=== PATIENT | female | born 1950 | race Caucasian/White ===

== ENCOUNTER → 2016-11-19 | Outpatient (CLI) | payer BC ==
[2016-11-20 10:47] LABS: Hexagonal Phase Neutralization Negative (Negative)
[2016-11-20 11:12] LABS: Protein C (Activity) 107 % (70 - 130)
[2016-11-21 13:50] LABS: Free Protein S Antigen 90 % (50 - 147)
== END | disposition home or self-care (01) ==
LOC: LABWHC1 13:44
PROVIDERS: ATTEND Internal Medicine
DX: I26.99 Other pulmonary embolism without acute cor pulmonale (principal)
CPT/HCPCS: 36415; 81240; 81241; 81291; 85300; 85303; 85306; 85598; 85613; 85730; 85732

== ENCOUNTER → 2017-03-09 | Outpatient (CLI) | payer BC ==
--- NOTE | 2017-03-11 11:02 | MM ---
Reason for exam: additional evaluation requested from prior study. Last mammogram was performed 9 years and 6 months ago. History: Patient is postmenopausal and has history of breast cancer at age 53. Family history of breast cancer in sister at age 50, breast cancer in mother at age 60, and breast cancer in relative at age 30. Malignant stereotactic core biopsy of the left breast, February 09, 2004. Benign excisional biopsy of the right breast, January 28, 2001. Cancelled Procedure of the right breast, January 08, 2001. Core biopsy of the left breast. 2 excisional biopsies of the left breast. Mastectomy of the left breast. Chemotherapy. TRAM Reconstruction of the left breast. Took tamoxifen for 5 years beginning at age 54. Physical Findings: Nurse did not find any significant physical abnormalities on exam. MG 3D Diag Mammo W/Cad RT CC and MLO view(s) were taken of the right breast. Prior study comparison: November 15, 2015, mammogram, performed at [facility]. May 10, 2014, mammogram, performed at [facility]. The breast tissue is heterogeneously dense. This may lower the sensitivity of mammography. Nodular density upper outer quadrant in the right breast 9.3cm from nipple. These results were verbally communicated with the patient on 03/11/17. ASSESSMENT: Incomplete: need additional imaging evaluation, BI-RAD 0 RECOMMENDATION: Ultrasound of the right breast. [facility] will attempt to contact patient to return for ultrasound.
== END | disposition home or self-care (01) ==
LOC: RADMAMWWP 14:22
PROVIDERS: ATTEND Family Medicine
DX: Z08 Encounter for follow-up examination after completed treatment for malignant neoplasm (principal); Z85.3 Personal history of malignant neoplasm of breast
CPT/HCPCS: G0206; G0279

== ENCOUNTER → 2017-03-12 | Outpatient (CLI) | payer BC ==
--- NOTE | 2017-03-13 08:00 | USB ---
Reason for exam: additional evaluation requested from abnormal screening. History: Patient is postmenopausal and has history of breast cancer at age 53. Family history of breast cancer in sister at age 50, breast cancer in mother at age 60, and breast cancer in relative at age 30. Malignant stereotactic core biopsy of the left breast, February 09, 2004. Benign excisional biopsy of the right breast, January 28, 2001. Cancelled Procedure of the right breast, January 08, 2001. Core biopsy of the left breast. 2 excisional biopsies of the left breast. Mastectomy of the left breast. Chemotherapy. TRAM Reconstruction of the left breast. Took tamoxifen for 5 years beginning at age 54. US Breast RT Right breast ultrasound includes all four quadrants, the retroareolar region and axilla. Finding demonstrates a 14 x 12 x 8mm irregular, solid, hypoechoic lesion at 10 o'clock, 8.2cm from nipple. These results were verbally communicated with the patient and result sheet given to the patient on 03/12/17. ASSESSMENT: Suspicious, BI-RAD 4 RECOMMENDATION: Ultrasound core biopsy of the right breast. Called Dr. Sampson with mammographic findings and has scheduled an appointment for the patient for 04/16/17 at 9:[address] Ghotra. Appointment scheduled with Dr. Sampson for 03/23/17 at 1:45. Biopsy scheduled for 03/31/17 at12:20. PRELIMINARY REPORT CALLED AND FAXED TO DR. GHOTRA ON 03/13/17 /TP.
== END | disposition home or self-care (01) ==
LOC: RADUSWWP 15:05
PROVIDERS: ATTEND Family Medicine
DX: R92.8 Other abnormal and inconclusive findings on diagnostic imaging of breast (principal)

== ENCOUNTER 2017-03-17 16:26 | Observation (INO) | payer BC ==
[2017-03-17] MEDS ORDERED: SODIUM CHLORIDE 0.9% 1,000 ML IV STA (16:48)
--- NOTE | 2017-03-17 16:48 | ED ---
General Adult HPI - General Chief complaint: Shortness of Breath Stated complaint: SOB Time Seen by Provider: 03/17/17 16:36 Source: patient, RN notes reviewed, old records reviewed Mode of arrival: wheelchair Limitations: no limitations - History of Present Illness Initial comments: This is a 66-year-old female here for evaluation of chest pain. Patient has history of heart disease and stress test with no acute findings. Patient also suffers from lung disease. Patient's had increasing exertional dyspnea, chest pain with activity and diaphoresis of recent note. Patient denies any travel history or sick contacts no fever no cough or congestion. - Related Data Home Medications Medication Instructions Recorded Confirmed Atorvastatin [Lipitor] 10 mg PO DAILY 09/11/15 03/17/17 Cholecalciferol [Vitamin D3] 3,000 unit PO DAILY 09/11/15 03/17/17 Losartan [Cozaar] 50 mg PO DAILY 09/11/15 03/17/17 Metoprolol Succinate [Toprol XL] 25 mg PO DAILY PRN 11/27/15 03/17/17 Sodium Chloride 5% Ophth Soln 1 drops LEFT EYE QID 11/27/15 03/17/17 [Luis 128] prednisoLONE ACETATE 1% OPHTH 1 drops RIGHT EYE DAILY 11/27/15 03/17/17 [Pred Forte 1%] Flecainide Acetate [Tambocor] 100 mg PO DAILY PRN 03/17/17 03/17/17 Triamterene-Hctz 37.5-25Mg 1 cap PO DAILY 03/17/17 03/17/17 [Dyazide 37.5-25 Capsule] Previous Rx's Medication Instructions Recorded Rivaroxaban [Xarelto] 20 mg PO DAILY #30 tab 05/01/16 Allergies Allergy/AdvReac Type Severity Reaction Status Date / Time lidocaine Allergy Anaphylaxis Verified 03/17/17 17:18 atropine AdvReac AFIB Verified 03/17/17 17:18 "CE" Allergy Anaphylaxis Uncoded 03/17/17 16:43 Review of Systems ROS Statement: Those systems with pertinent positive or pertinent negative responses have been documented in the HPI. ROS Other: All systems not noted in ROS Statement are negative. Past Medical History Past Medical History: Atrial Fibrillation, Cancer, Eye Disorder, Hyperlipidemia , Hypertension, Osteoarthritis (OA), Skin Disorder Additional Past Medical History / Comment(s): LT BREAST CA 2003. THIN SKIN ARMS , HANDS (JUST TOUCHING THEM CAUSES TO BLEED). CATARACT RT EYE, BILAT CORNEAL/ FUCHS DYSTROPHY, DO NOT USE LEFT ARM (LEFT MASTECTOMY). PT STATES 2 PREVIOUS SURGERY'S ON RIGHT EYE IN THE LAST FEW MONTHS AND SEEN IN ER ON 09/13/15 FOR A- FIB. RECENT CASE OF SHINGLES-RESOLVED NOW History of Any Multi-Drug Resistant Organisms: None Reported Past Surgical History: Breast Surgery, Ear Surgery, Joint Replacement, Orthopedic Surgery Additional Past Surgical History / Comment(s): OOPHORECTOMY Past Anesthesia/Blood Transfusion Reactions: Motion Sickness Past Psychological History: No Psychological Hx Reported Smoking Status: Former smoker Past Alcohol Use History: None Reported Past Drug Use History: None Reported - Past Family History Mother Brother(s) Family Medical History: Cancer Additional Family Medical History / Comment(s): MOTHER HAD BLOOD CLOT Sister(s) Daughter(s) Family Medical History: Cancer Father Family Medical History: Cancer General Exam Limitations: no limitations General appearance: alert, in no apparent distress Head exam: Present: atraumatic, normocephalic, normal inspection Eye exam: Present: normal appearance, PERRL, EOMI. Absent: scleral icterus, conjunctival injection, periorbital swelling ENT exam: Present: normal exam, mucous membranes moist Neck exam: Present: normal inspection. Absent: tenderness, meningismus, lymphadenopathy Respiratory exam: Present: normal lung sounds bilaterally. Absent: respiratory distress, wheezes, rales, rhonchi, stridor Cardiovascular Exam: Present: regular rate, normal rhythm, normal heart sounds. Absent: systolic murmur, diastolic murmur, rubs, gallop, clicks GI/Abdominal exam: Present: soft, normal bowel sounds. Absent: distended, tenderness, guarding, rebound, rigid Extremities exam: Present: normal inspection, full ROM, normal capillary refill. Absent: tenderness, pedal edema, joint swelling, calf tenderness Back exam: Present: normal inspection Neurological exam: Present: alert, oriented X3, CN II-XII intact Psychiatric exam: Present: normal affect, normal mood Skin exam: Present: warm, dry, intact, normal color. Absent: rash Course Vital Signs 03/17/17 03/17/17 03/17/17 16:40 17:12 17:42 Temperature 98.8 F Pulse Rate 68 69 Respiratory 16 20 16 Rate Blood Pressure 109/61 109/66 O2 Sat by Pulse 99 98 Oximetry - Reevaluation(s) Reevaluation #1: 03/17/17 18:46 Patient still shortness of breath EKG Findings - EKG Comments: EKG Findings:: EKG shows normal sinus rhythm at 60, MD 124, QRS 80, QTC 425 Medical Decision Making - Medical Decision Making 62 for female here for evaluation of chest pain. Anginal type chest pain exercise-induced chest pain or shortness of breath. Patient to be admitted for cardiac evaluation. - Lab Data Result diagrams: 03/17/17 17:05 03/17/17 17:05 Lab Results 03/17/17 03/17/17 03/17/17 Range/Units 17:05 17:05 17:05 WBC 7.8 (3.8-10.6) k/uL RBC 3.55 L (3.80-5.40) m/uL Hgb 12.0 (11.4-16.0) gm/dL Hct 34.1 (34.0-46.0) % MCV 96.2 (80.0-100.0) fL MCH 33.8 (25.0-35.0) pg MCHC 35.2 (31.0-37.0) g/dL RDW 16.6 H (11.5-15.5) % Plt Count 263 (150-450) k/uL Neutrophils % 72 % Lymphocytes % 19 % Monocytes % 6 % Eosinophils % 1 % Basophils % 0 % Neutrophils # 5.6 (1.3-7.7) k/uL Lymphocytes # 1.4 (1.0-4.8) k/uL Monocytes # 0.4 (0-1.0) k/uL Eosinophils # 0.1 (0-0.7) k/uL Basophils # 0.0 (0-0.2) k/uL Anisocytosis Slight PT (9.0-12.0) sec INR (<1.2) APTT (22.0-30.0) sec Sodium 140 (137-145) mmol/L Potassium 3.6 (3.5-5.1) mmol/L Chloride 104 (98-107) mmol/L Carbon Dioxide 22 (22-30) mmol/L Anion Gap 14 mmol/L BUN 26 H (7-17) mg/dL Creatinine 1.20 H (0.52-1.04) mg/dL Est GFR (MDRD) Af Amer 55 (>60 ml/min/1.73 sqM) Est GFR (MDRD) Non-Af 45 (>60 ml/min/1.73 sqM) Glucose 83 (74-99) mg/dL Calcium 9.3 (8.4-10.2) mg/dL Phosphorus 3.4 (2.5-4.5) mg/dL Magnesium 1.8 (1.6-2.3) mg/dL Total Bilirubin 1.0 (0.2-1.3) mg/dL AST 21 (14-36) U/L ALT 36 (9-52) U/L Alkaline Phosphatase 59 (38-126) U/L Total Creatine Kinase 29 L (30-135) U/L CK-MB (CK-2) 0.3 (0.0-2.4) ng/mL CK-MB (CK-2) Rel Index 1.0 Troponin I <0.012 (0.000-0.034) ng/mL Total Protein 7.2 (6.3-8.2) g/dL Albumin 4.4 (3.5-5.0) g/dL 03/17/17 Range/Units 17:05 WBC (3.8-10.6) k/uL RBC (3.80-5.40) m/uL Hgb (11.4-16.0) gm/dL Hct (34.0-46.0) % MCV (80.0-100.0) fL MCH (25.0-35.0) pg MCHC (31.0-37.0) g/dL RDW (11.5-15.5) % Plt Count (150-450) k/uL Neutrophils % % Lymphocytes % % Monocytes % % Eosinophils % % Basophils % % Neutrophils # (1.3-7.7) k/uL Lymphocytes # (1.0-4.8) k/uL Monocytes # (0-1.0) k/uL Eosinophils # (0-0.7) k/uL Basophils # (0-0.2) k/uL Anisocytosis PT 13.3 H (9.0-12.0) sec INR 1.4 H (<1.2) APTT 31.6 H (22.0-30.0) sec Sodium (137-145) mmol/L Potassium (3.5-5.1) mmol/L Chloride (98-107) mmol/L Carbon Dioxide (22-30) mmol/L Anion Gap mmol/L BUN (7-17) mg/dL Creatinine (0.52-1.04) mg/dL Est GFR (MDRD) Af Amer (>60 ml/min/1.73 sqM) Est GFR (MDRD) Non-Af (>60 ml/min/1.73 sqM) Glucose (74-99) mg/dL Calcium (8.4-10.2) mg/dL Phosphorus (2.5-4.5) mg/dL Magnesium (1.6-2.3) mg/dL Total Bilirubin (0.2-1.3) mg/dL AST (14-36) U/L ALT (9-52) U/L Alkaline Phosphatase (38-126) U/L Total Creatine Kinase (30-135) U/L CK-MB (CK-2) (0.0-2.4) ng/mL CK-MB (CK-2) Rel Index Troponin I (0.000-0.034) ng/mL Total Protein (6.3-8.2) g/dL Albumin (3.5-5.0) g/dL - Radiology Data Radiology results: report reviewed (Chest x-ray negative for acute disease), image reviewed Critical Care Time Critical Care Time: Yes Total Critical Care Time: 31 Disposition Clinical Impression: Acute exacerbation of chronic obstructive airways disease, Chest pain Disposition: ADMITTED IP TO THIS [facility] Condition: Fair Referrals: Perry Sampson MD [Primary Care Provider] - 1-2 days
[2017-03-17 17:24] LABS: Anisocytosis Slight; Basophils % (A) 0 %; CH 34.7; CHCM 36.2; Eosinophils # (A) 0.1 k/uL (0-0.7); Eosinophils % (A) 1 %; HCT 34.1 % (34.0-46.0); HDW 2.98; Luc # (Auto) 0.22; Luc % (Auto) 3; Lymphocytes # (A) 1.4 k/uL (1.0-4.8); Lymphocytes % (A) 19 %; MCH 33.8 pg (25.0-35.0); MCHC 35.2 g/dL (31.0-37.0); MCV 96.2 fL (80.0-100.0); Mean Platelet Volume 7.6; Monocytes # (A) 0.4 k/uL (0-1.0); Monocytes % (A) 6 %; Neutrophils # (A) 5.6 k/uL (1.3-7.7); Neutrophils % (A) 72 %; RBC 3.55 m/uL (3.80-5.40); RDW 16.6 % (11.5-15.5); WBC 7.8 k/uL (3.8-10.6); WBC (Perox) 8.35
[2017-03-17 17:33] LABS: Calcium 9.3 mg/dL (8.4-10.2); INR 1.4 (<1.2); Magnesium 1.8 mg/dL (1.6-2.3); Phosphorous 3.4 mg/dL (2.5-4.5); Potassium 3.6 mmol/L (3.5-5.1); Prothrombin Time 13.3 sec (9.0-12.0); Total Protein 7.2 g/dL (6.3-8.2)
[2017-03-17 17:34] LABS: Partial Thromboplastin Time 31.6 sec (22.0-30.0)
[2017-03-17 17:45] LABS: Creatine Kinase 29 U/L (30-135)
[2017-03-17 17:57] LABS: Creatine Kinase MB 0.3 ng/mL (0.0-2.4); Troponin I <0.012 ng/mL (0.000-0.034)
[2017-03-17] MEDS ORDERED: NITROGLYCERIN SL TABS 0.4 MG TAB SUBLINGUAL PRN (18:44)
[2017-03-17] MEDS ORDERED: HEPARIN SODIUM,PORCINE 5,000 UNIT/ML 1 ML VIAL IV PRN (18:44)
[2017-03-17] MEDS ORDERED: MORPHINE SULFATE 4 MG/ML SYRINGE IV PRN (18:44)
[2017-03-17] MEDS ORDERED: HEPARIN SODIUM,PORCINE 5,000 UNIT/ML 1 ML VIAL IV ONE (18:44)
[2017-03-17] MEDS ORDERED: HEPARIN SODIUM,PORCINE/D5W PMX 25,000 UNIT in DEXTROSE/WATER 1 500ML.BAG IV SCH (18:45)
--- NOTE | 2017-03-17 18:59 | XR ---
EXAMINATION TYPE: XR chest 2V DATE OF EXAM: 03/17/2017 COMPARISON: 04/29/2016 HISTORY: Chest pressure TECHNIQUE: Frontal and lateral views of the chest are obtained. FINDINGS: There is no heart failure nor confluent pneumonic infiltrate. There are no hilar masses. T here are chest leads. Bony thorax is intact. IMPRESSION: No active cardiopulmonary disease. Normal heart. No change.
[2017-03-17] MEDS: ASPIRIN 81 MG CHEW PO STA ×2 (19:02→19:05)
[2017-03-17] MEDS ORDERED: ASPIRIN 81 MG CHEW PO STA (19:05)
[2017-03-17] MEDS ORDERED: FLECAINIDE 50 MG TAB PO PRN (20:40)
[2017-03-17] MEDS ORDERED: METOPROLOL SUCCINATE (ER) 25 MG TAB.ER.24H PO PRN (20:40)
[2017-03-17] MEDS: SODIUM CHLORIDE 5% OPHTH DROPS 15 ML BTL LEFT EYE SCH (23:36)
[2017-03-18] MEDS: SODIUM CHLORIDE 0.9% 1,000 ML IV SCH ×2 (00:16→06:27)
[2017-03-18 00:24] LABS: Creatine Kinase 21 U/L (30-135)
[2017-03-18 00:37] LABS: Creatine Kinase MB <0.2 ng/mL (0.0-2.4); Troponin I <0.012 ng/mL (0.000-0.034)
[2017-03-18 04:49] VITALS: RESP 16
[2017-03-18 05:43] LABS: Mean Platelet Volume 7.4
[2017-03-18 06:05] LABS: Cholesterol 132 mg/dL (<200); HDL Cholesterol 42 mg/dL (40-60)
[2017-03-18 06:06] LABS: Creatine Kinase 24 U/L (30-135)
[2017-03-18 06:18] LABS: Creatine Kinase MB <0.2 ng/mL (0.0-2.4); Troponin I <0.012 ng/mL (0.000-0.034)
[2017-03-18] MEDS ORDERED: RIVAROXABAN 10 MG TAB PO SCH (07:30)
[2017-03-18] MEDS: SODIUM CHLORIDE 5% OPHTH DROPS 15 ML BTL LEFT EYE SCH ×2 (08:25→14:02)
--- NOTE | 2017-03-18 08:25 | P.CRDCN ---
History of Present Illness Consult date: 03/18/17 Requesting physician: Perry Sampson Consult reason: chest pain Chief complaint: Chest pain History of present illness: This is a pleasant 66-year-old female who follows with Dr. Means in the office. She has a known history of hypertension, hyperlipidemia, prior PE with DVT in April of last year, history of left breast cancer status post mastectomy and chemo in 2003 paroxysmal atrial fibrillation, who presents to the hospital with symptoms of chest discomfort. According to the patient, she was at [employer] yesterday doing some shopping, when all of a sudden she experienced heaviness in the chest like someone sitting on her chest, she states that the heaviness radiated up into her neck area and bilateral jaws. She denies any diaphoresis, she's unsure if she was short of breath at that time. She states that the symptoms lasted approximately 15 minutes in duration. In the afternoon she had an appointment with Dr. Sibley because she has been experiencing symptoms of exertional shortness of breath and dizziness, she explained to him the episode she had earlier in the day and was recommended to come to the emergency room for further evaluation. EKG on arrival here showed a normal sinus rhythm with no acute changes. Repeat EKG shows normal sinus rhythm with nonspecific ST-T wave changes. Chest x-ray does not reveal any active cardiopulmonary disease. Blood pressure 108/60 with a heart rate in the 60s, 99% on room air. Blood cell count 7.8, hemoglobin 12, platelet count 263, d-dimer 0.2, potassium 3.6, BUN 26, creatinine 1.2. Troponins have been negative 3. At the time of my examination this morning, patient is currently chest pain-free. Patient does state that she is under increased amount of stress recently because of a recent mammogram which has apparently come back abnormal, she is waiting for a follow-up with Dr. Weston. Past Medical History Past Medical History: Atrial Fibrillation, Cancer, Deep Vein Thrombosis (DVT), Eye Disorder, Hyperlipidemia, Hypertension, Osteoarthritis (OA), Pulmonary Embolus (PE), Skin Disorder Additional Past Medical History / Comment(s): recent "abn mammogram on rt" past hx include LT BREAST CA 2003.-no bp on lt arm THIN SKIN ARMS, HANDS prone to skin tears -please use paper tape only. CATARACT RT EYE, BILAT CORNEAL/ FUCHS DYSTROPHY, DO NOT USE LEFT ARM (LEFT MASTECTOMY). PT STATES 2 PREVIOUS SURGERY'S ON RIGHT EYE IN THE LAST FEW MONTHS AND SEEN IN ER ON 09/13/15 FOR A- FIB. RECENT CASE OF SHINGLES-RESOLVED NOW History of Any Multi-Drug Resistant Organisms: None Reported Past Surgical History: Breast Surgery, Ear Surgery, Joint Replacement, Orthopedic Surgery Additional Past Surgical History / Comment(s): OOPHORECTOMY, lt knee rebuilt 1983, lt ankle, rt hip replaced 2002, lt breast cancer 2003, lt knee replaced 2006, right shoulder, cornea trasnplant , colonoscopy Past Anesthesia/Blood Transfusion Reactions: Motion Sickness Smoking Status: Former smoker - Past Family History Mother Brother(s) Family Medical History: Cancer Additional Family Medical History / Comment(s): MOTHER HAD BLOOD CLOT Sister(s) Daughter(s) Family Medical History: Cancer Father Family Medical History: Cancer Medications and Allergies Home Medications Medication Instructions Recorded Confirmed Type Atorvastatin [Lipitor] 10 mg PO DAILY 09/11/15 03/17/17 History Cholecalciferol [Vitamin D3] 3,000 unit PO DAILY 09/11/15 03/17/17 History Losartan [Cozaar] 50 mg PO DAILY 09/11/15 03/17/17 History Metoprolol Succinate [Toprol XL] 25 mg PO DAILY PRN 11/27/15 03/17/17 History Sodium Chloride 5% Ophth Soln 1 drops LEFT EYE QID 11/27/15 03/17/17 History [Luis 128] prednisoLONE ACETATE 1% OPHTH 1 drops RIGHT EYE DAILY 11/27/15 03/17/17 History [Pred Forte 1%] Flecainide Acetate [Tambocor] 100 mg PO DAILY PRN 03/17/17 03/17/17 History Triamterene-Hctz 37.5-25Mg 1 cap PO DAILY 03/17/17 03/17/17 History [Dyazide 37.5-25 Capsule] Allergies Allergy/AdvReac Type Severity Reaction Status Date / Time lidocaine Allergy Anaphylaxis Verified 03/17/17 17:18 atropine AdvReac AFIB Verified 03/17/17 17:18 "CE" Allergy Anaphylaxis Uncoded 03/17/17 16:43 Physical Exam Vitals: Vital Signs Temp Pulse Pulse Resp BP BP Pulse Ox 03/18/17 04:00 97.3 F L 73 16 118/68 94 L 03/18/17 00:00 97.3 F L 72 18 109/61 95 03/17/17 22:59 97.1 F L 65 18 131/71 97 03/17/17 19:49 98.8 F 64 18 148/70 99 03/17/17 19:09 74 16 131/59 99 03/17/17 17:42 69 16 109/66 98 03/17/17 17:12 20 03/17/17 16:40 98.8 F 68 16 109/61 99 Intake and Output 03/17/17 03/18/17 03/18/17 22:59 06:59 14:59 Intake Total 1060 Balance 1060 Intake: Intake, IV Titration 700 Amount Sodium Chloride 0.9% 1, 700 000 ml @ 100 mls/hr IV . Q10H [facility] Rx#:[id number] Oral 360 Other: Voiding Method Toilet Toilet # Voids 1 1 Weight 107.955 kg 108.5 kg PHYSICAL EXAMINATION: HEENT: Head is atraumatic, normocephalic. Pupils equal, round. Neck is supple. There is no elevated jugular venous pressure. HEART EXAMINATION: Heart S1, S2 normal. No murmur or gallop heard. CHEST EXAMINATION: Lungs are clear to auscultation and precussion. No chest wall tenderness is noted on palpation or with deep breathing. ABDOMEN: Soft, nontender. Bowel sounds are heard. No organomegaly noted. EXTREMITIES: 2+ peripheral pulses with no evidence of peripheral edema and no calf tenderness noted. NEUROLOGIC patient is awake, alert and oriented -3. . Results 03/18/17 05:25 03/17/17 17:05 Cardiac Enzymes 03/17/17 03/17/17 03/17/17 Range/Units 17:05 17:05 23:50 AST 21 (14-36) U/L CK-MB (CK-2) 0.3 <0.2 (0.0-2.4) ng/mL Troponin I <0.012 <0.012 (0.000-0.034) ng/mL 03/18/17 Range/Units 05:25 AST (14-36) U/L CK-MB (CK-2) <0.2 (0.0-2.4) ng/mL Troponin I <0.012 (0.000-0.034) ng/mL Coagulation 03/17/17 03/17/17 Range/Units 17:05 23:50 PT 13.3 H (9.0-12.0) sec APTT 31.6 H 29.5 (22.0-30.0) sec Lipids 03/18/17 Range/Units 05:25 Triglycerides 89 (<150) mg/dL Cholesterol 132 (<200) mg/dL HDL Cholesterol 42 (40-60) mg/dL CBC 03/17/17 03/18/17 Range/Units 17:05 05:25 WBC 7.8 (3.8-10.6) k/uL RBC 3.55 L (3.80-5.40) m/uL Hgb 12.0 (11.4-16.0) gm/dL Hct 34.1 (34.0-46.0) % Plt Count 263 204 (150-450) k/uL Comprehensive Metabolic Panel 03/17/17 Range/Units 17:05 Sodium 140 (137-145) mmol/L Potassium 3.6 (3.5-5.1) mmol/L Chloride 104 (98-107) mmol/L Carbon Dioxide 22 (22-30) mmol/L BUN 26 H (7-17) mg/dL Creatinine 1.20 H (0.52-1.04) mg/dL Glucose 83 (74-99) mg/dL Calcium 9.3 (8.4-10.2) mg/dL AST 21 (14-36) U/L ALT 36 (9-52) U/L Alkaline Phosphatase 59 (38-126) U/L Total Protein 7.2 (6.3-8.2) g/dL Albumin 4.4 (3.5-5.0) g/dL Current Medications Generic Name Dose Route Start Last Admin Trade Name Freq PRN Reason Stop Dose Admin Aspirin 325 mg 03/18/17 09:00 Aspirin PO DAILY [facility] Atorvastatin Calcium 10 mg 03/18/17 09:00 Lipitor PO DAILY [facility] Cholecalciferol 3,000 unit 03/18/17 12:00 Vitamin D3 PO DAILY@1200 [facility] Flecainide Acetate 100 mg 03/17/17 20:40 Tambocor PO DAILY PRN AFIB Sodium Chloride 1,000 mls @ 100 mls/hr 03/17/17 18:45 03/18/17 06:27 Saline 0.9% IV 100 mls/hr .Q10H [facility] Administration Losartan Potassium 50 mg 03/18/17 09:00 Cozaar PO DAILY [facility] Metoprolol Succinate 25 mg 03/17/17 20:40 Toprol Xl PO DAILY PRN AFIB Morphine Sulfate 4 mg 03/17/17 18:44 Morphine Sulfate (Inj) IV Q5M PRN Chest Pain Nitroglycerin 0.4 mg 03/17/17 18:44 Nitrostat SUBLINGUAL Q5M PRN Chest Pain Prednisolone Acetate 1 drops 03/18/17 09:00 Pred Forte 1% RIGHT EYE DAILY [facility] Rivaroxaban 20 mg 03/18/17 07:30 03/18/17 06:27 Xarelto PO 20 mg W/BRKFST [facility] Administration Sodium Chloride 1 drops 03/17/17 22:00 03/17/17 23:36 Luis 128 LEFT EYE Not Given QID [facility] Triamterene/HCTZ 1 each 03/18/17 09:00 Dyazide PO DAILY [facility] Intake and Output 03/17/17 03/18/17 03/18/17 22:59 06:59 14:59 Intake Total 1060 Balance 1060 Intake: Intake, IV Titration 700 Amount Sodium Chloride 0.9% 1, 700 000 ml @ 100 mls/hr IV . Q10H [facility] Rx#:[id number] Oral 360 Other: Voiding Method Toilet Toilet # Voids 1 1 Weight 107.955 kg 108.5 kg 03/18/17 05:25 03/17/17 17:05 EKG Interpretations (text) EKG shows normal sinus rhythm with nonspecific ST-T wave changes. Assessment and Plan Plan: Assessment and plan #1 symptoms of midsternal chest pressure and heaviness with radiation to the neck and jaw area, suggestive of possible angina. Troponins 3 negative. EKG shows normal sinus rhythm with no acute changes. #2 hypertension #3 hyperlipidemia #4 history of PE with DVT in April of last year, on xarelto #5 paroxysmal atrial fibrillation #6 history of breast cancer in 1999 for with prior left mastectomy and chemo Plan We will obtain an echocardiogram with Doppler study. Patient is on Xarelto for anticoagulation which has been continued here. She has been recommended to undergo a Lexiscan stress test today. Pending those results further recommendations will be made. DNP note has been reviewed, I agree with a documented findings and plan of care. Patient was seen and examined.
[2017-03-18] MEDS ORDERED: LOSARTAN 50 MG TAB PO SCH (09:00)
[2017-03-18] MEDS ORDERED: ATORVASTATIN 10 MG TAB PO SCH (09:00)
[2017-03-18] MEDS ORDERED: ASPIRIN 325 MG TAB PO SCH (09:00)
[2017-03-18] MEDS ORDERED: TRIAMTERENE-HCTZ 37.5-25MG 1 EACH CAP PO SCH (09:00)
[2017-03-18] MEDS ORDERED: prednisoLONE ACETATE 1% OPHTH DROPS 1 ML BTL RIGHT EYE SCH (09:00)
[2017-03-18] MEDS ORDERED: AMINOPHYLLINE 500 MG/20 ML VIAL IV PRN (11:02)
[2017-03-18] MEDS ORDERED: REGADENOSON 0.4 MG/5 ML SYRINGE IV ONE (11:02)
[2017-03-18] MEDS ORDERED: CHOLECALCIFEROL 1,000 UNIT TAB PO SCH (12:00)
--- NOTE | 2017-03-18 15:54 | NM ---
EXAMINATION TYPE: NM stress lexiscan cardiolite DATE OF EXAM: 03/18/2017 COMPARISON: NONE HISTORY: Chest pain TECHNIQUE: After the intravenous administration of 10.4 mCi Tc 99m Sestamibi - Cardiolite resting SP ECT images acquired 45 minutes post injection. The patient received 0.4mg Lexiscan, 25.5 mCi Tc 99m Sestamibi - Stress images obtained [address] injection FINDINGS: Review of stress and rest SPECT images demonstrates no distinct perfusion abnormality. Gated analysi s shows normal wall motion with an estimated left ventricular ejection fraction of 66 %. IMPRESSION: No scintigraphic evidence for reversible ischemia. Consider echocardiography for elevated ejection fr action.
--- NOTE | 2017-03-18 16:07 | P.HPIM ---
History of Present Illness H&P Date: 03/18/17 Chief Complaint: Shortness of breath chest discomfort Patient states that she was shopping at [employer] she started developing chest pressure radiating to the neck shortness of breath or shopping when out to the car set there until her shortness of breath and chest discomfort resolved. She told and no one about this and went home. The next day she had an appointment with Dr. Kaplan when she told him this episode he immediately had her sent to [facility] emergency room. At the time of this evaluation experiencing these symptoms patient has a history of lung disease was experiencing some exertional dyspnea no diaphoresis no nausea no vomiting Review of Systems Constitutional: Reports as per HPI Ears, nose, mouth and throat: Reports as per HPI, Reports ant. neck pain Cardiovascular: Reports chest pain, Reports dyspnea on exertion, Reports shortness of breath Respiratory: Reports cough Gastrointestinal: Reports as per HPI Genitourinary: Reports as per HPI Menstruation: Reports as per HPI Musculoskeletal: Reports as per HPI Integumentary: Reports as per HPI Neurological: Reports as per HPI Past Medical History Past Medical History: Atrial Fibrillation, Cancer, Deep Vein Thrombosis (DVT), Eye Disorder, Hyperlipidemia, Hypertension, Osteoarthritis (OA), Pulmonary Embolus (PE), Skin Disorder Additional Past Medical History / Comment(s): recent "abn mammogram on rt" past hx include LT BREAST CA 2003.-no bp on lt arm THIN SKIN ARMS, HANDS prone to skin tears -please use paper tape only. CATARACT RT EYE, BILAT CORNEAL/ FUCHS DYSTROPHY, DO NOT USE LEFT ARM (LEFT MASTECTOMY). PT STATES 2 PREVIOUS SURGERY'S ON RIGHT EYE IN THE LAST FEW MONTHS AND SEEN IN ER ON 09/13/15 FOR A- FIB. RECENT CASE OF SHINGLES-RESOLVED NOW History of Any Multi-Drug Resistant Organisms: None Reported Past Surgical History: Breast Surgery, Ear Surgery, Joint Replacement, Orthopedic Surgery Additional Past Surgical History / Comment(s): OOPHORECTOMY, lt knee rebuilt 1983, lt ankle, rt hip replaced 2002, lt breast cancer 2003, lt knee replaced 2006, right shoulder, cornea trasnplant , colonoscopy Past Anesthesia/Blood Transfusion Reactions: Motion Sickness Smoking Status: Former smoker - Past Family History Mother Brother(s) Family Medical History: Cancer Additional Family Medical History / Comment(s): MOTHER HAD BLOOD CLOT Sister(s) Daughter(s) Family Medical History: Cancer Father Family Medical History: Cancer Medications and Allergies Home Medications Medication Instructions Recorded Confirmed Type Atorvastatin [Lipitor] 10 mg PO DAILY 09/11/15 03/17/17 History Cholecalciferol [Vitamin D3] 3,000 unit PO DAILY 09/11/15 03/17/17 History Losartan [Cozaar] 50 mg PO DAILY 09/11/15 03/17/17 History Metoprolol Succinate [Toprol XL] 25 mg PO DAILY PRN 11/27/15 03/17/17 History Sodium Chloride 5% Ophth Soln 1 drops LEFT EYE QID 11/27/15 03/17/17 History [Luis 128] prednisoLONE ACETATE 1% OPHTH 1 drops RIGHT EYE DAILY 11/27/15 03/17/17 History [Pred Forte 1%] Flecainide Acetate [Tambocor] 100 mg PO DAILY PRN 03/17/17 03/17/17 History Triamterene-Hctz 37.5-25Mg 1 cap PO DAILY 03/17/17 03/17/17 History [Dyazide 37.5-25 Capsule] Allergies Allergy/AdvReac Type Severity Reaction Status Date / Time lidocaine Allergy Anaphylaxis Verified 03/17/17 17:18 atropine AdvReac AFIB Verified 03/17/17 17:18 "CE" Allergy Anaphylaxis Uncoded 03/17/17 16:43 Physical Exam Osteopathic Statement: *. No significant issues noted on an osteopathic structural exam other than those noted in the History and Physical/Consult. Vitals: Vital Signs Temp Pulse Pulse Resp BP BP Pulse Ox 03/18/17 11:59 97.5 F L 81 16 132/68 94 L 03/18/17 08:27 97.7 F 64 16 128/76 98 03/18/17 04:00 97.3 F L 73 16 118/68 94 L 03/18/17 00:00 97.3 F L 72 18 109/61 95 03/17/17 22:59 97.1 F L 65 18 131/71 97 03/17/17 19:49 98.8 F 64 18 148/70 99 03/17/17 19:09 74 16 131/59 99 03/17/17 17:42 69 16 109/66 98 03/17/17 17:12 20 03/17/17 16:40 98.8 F 68 16 109/61 99 Intake and Output 03/18/17 03/18/17 03/18/17 06:59 14:59 22:59 Intake Total 1060 Balance 1060 Intake: Intake, IV Titration 700 Amount Sodium Chloride 0.9% 1, 700 000 ml @ 100 mls/hr IV . Q10H JOAQUIM Rx#:[id number] Oral 360 Other: Voiding Method Toilet Toilet # Voids 1 1 Weight 108.5 kg General: [Patient awake, alert and oriented times 3. Patient in no acute distress.] HEENT: [PERRL. EOMI. No pharyngeal erythema or exudate.] Neck: [No adenopathy.] Cardiac: [Heart regular in rate and rhythm. No S3. No S4. No clicks, rubs. No murmur.] Lungs: [Clear to auscultation bilaterally.] History of breast cancer with mastectomy Abdomen: [No mass. No organomegaly. Bowel sounds presnt and normoactive in all 4 quadrants.] Extremes: [No edema no cyanosis no claudication normal pulses] : [] Musculoskeletal: [No joint erythema, edema or tenderness.] Skin: [No rash.] Neurologic: [No lateralizing deficits. CN II - XII grossly intact.] Lymphatic: [No adenopathy.] Results CBC & Chem 7: 03/18/17 05:25 03/17/17 17:05 Labs: Abnormal Lab Results - Last 24 Hours (Table) 03/17/17 03/17/17 03/17/17 Range/Units 17:05 17:05 17:05 RBC 3.55 L (3.80-5.40) m/uL RDW 16.6 H (11.5-15.5) % PT (9.0-12.0) sec INR (<1.2) APTT (22.0-30.0) sec BUN 26 H (7-17) mg/dL Creatinine 1.20 H (0.52-1.04) mg/dL Total Creatine Kinase 29 L (30-135) U/L 03/17/17 03/17/17 03/18/17 Range/Units 17:05 23:50 05:25 RBC (3.80-5.40) m/uL RDW (11.5-15.5) % PT 13.3 H (9.0-12.0) sec INR 1.4 H (<1.2) APTT 31.6 H (22.0-30.0) sec BUN (7-17) mg/dL Creatinine (0.52-1.04) mg/dL Total Creatine Kinase 21 L 24 L (30-135) U/L Assessment and Plan (1) Acute exacerbation of chronic obstructive airways disease Status: Acute (2) Chest pain Status: Acute Plan: Assessment and plan #1 symptoms of midsternal chest pressure and heaviness with radiation to the neck and jaw area consistent with angina Troponin 3 are negative, EKG is normal sinus #2 hypertension #3 hyperlipidemia #4 history of PE with DVT April of last year patient is currently on xarelto #5 paroxysmal atrial fibrillation #6 history of breast cancer with left mastectomy and chemotherapy Plan Patient has undergone flexible lexiscan stress test today, results pending Patient is currently on Xarelto Awaiting final stress test results
[2017-03-18 16:23] VITALS: BP 137/67; PULSE 87; TEMP 97.7
--- NOTE | 2017-03-19 11:23 | P.STRESS ---
- Stress Test Note Stress Test Results/Findings: Exam Performed: NM stress lexiscan cardiolite Exam Date: 03/18/17 Reason for Exam: Chest pain Height: 5 ft 8 in Weight: 108.5 kg Protocol: Fernanda Scan Stage: N/A Duration of Exercise: N/A Resting Heart Rate: 57 Resting Blood Pressure: 148/81 Maximum Achieved Heart Rate: 107 Maximum Achieved Blood Pressure: 160/86 85% PMHR: 133 100% PMHR: 156 METS: N/A Technologist Comment: Stress Test Results/Findings: Patient was given Lexiscan injection over a period of 15 seconds. Resting EKG shows normal sinus rhythm without any ischemic changes no ST segment depression suggestive ischemia was noted during Lexiscan injection. The results of the nuclear study will follow.
== END 2017-03-18 18:13 | disposition home or self-care (01) ==
LOC: EC 16:26 → 6SEL 18:44
PROVIDERS: ADMIT Family Medicine; ATTEND Family Medicine
DX: J44.1 Chronic obstructive pulmonary disease with (acute) exacerbation (principal); E78.5 Hyperlipidemia, unspecified; M19.90 Unspecified osteoarthritis, unspecified site; I10 Essential (primary) hypertension; H18.51 Endothelial corneal dystrophy; I48.0 Paroxysmal atrial fibrillation; Z92.21 Personal history of antineoplastic chemotherapy; Z79.899 Other long term (current) drug therapy; Z79.01 Long term (current) use of anticoagulants; Z88.4 Allergy status to anesthetic agent; Z88.8 Allergy status to other drugs, medicaments and biological substances; Z85.3 Personal history of malignant neoplasm of breast; Z87.891 Personal history of nicotine dependence; Z86.718 Personal history of other venous thrombosis and embolism; Z86.711 Personal history of pulmonary embolism; Z90.12 Acquired absence of left breast and nipple
CPT/HCPCS: 99291; 36415; 93005; 93017; 85379; 83880; 80061; 80053; 82550 ×2; 82553 ×2; 83735; 84100; 84484 ×2; 85025; 85049; 85610; 85730; 71020; 78452; G0378 ×2; A9500; J2785

== ENCOUNTER → 2017-04-06 | Outpatient (CLI) | payer BC ==
--- NOTE | 2017-04-07 11:39 | ECHOF ---
Referral Reason:Atrial fibrilation I48.0, Hypertension I10 MEASUREMENTS -------- HEIGHT: 172.7 cm WEIGHT: 106.6 kg BP: IVSd: 1.2 cm (0.6 - 1.1) LVIDd: 3.4 cm (3.9 - 5.3) LVPWd: 1.4 cm (0.6 - 1.1) IVSs: 2.0 cm LVIDs: 1.9 cm LVPWs: 1.6 cm Ao Diam: 3.6 cm (2.0 - 3.7) AV Cusp: 2.2 cm (1.5 - 2.6) LA Diam: 3.2 cm (2.7 - 3.8) MV EXCURSION: 19.089 mm (> 18.000) MV EF SLOPE: 100 mm/s (70 - 150) EPSS: 1.3 cm MV E [place]: 0.75 m/s MV DecT: 293 ms MV A [place]: 0.53 m/s MV E/A Ratio: 1.41 RAP: 5.00 mmHg RVSP: 12.99 mmHg FINDINGS -------- Undetermined rhythm. This was a technically adequate study. There is mild concentric left ventricular hypertrophy. Overall left ventricular systolic function is low-normal with, an EF between 50 - 55 %. The right ventricle is normal in size and function. The left atrium is normal in size. The right atrium is normal in size. The aortic valve is trileaflet, and appears structurally normal. No aortic stenosis or regurgitation. There is trace mitral regurgitation. Trace tricuspid regurgitation present. The right ventricular systolic pressure, as measured by Doppler, is 12.99mmHg. Pulmonic valve appears structurally normal. The aortic root size is normal. The pericardium is normal. CONCLUSIONS -------- 1. Undetermined rhythm. 2. Trace tricuspid regurgitation present. 3. The right ventricular systolic pressure, as measured by Doppler, is 12.99mmHg. 4. Pulmonic valve appears structurally normal. 5. The aortic root size is normal. 6. The pericardium is normal. 7. This was a technically adequate study. 8. There is mild concentric left ventricular hypertrophy. 9. Overall left ventricular systolic function is low-normal with, an EF between 50 - 55 %. 10. The right ventricle is normal in size and function. 11. The left atrium is normal in size. 12. The right atrium is normal in size. 13. The aortic valve is trileaflet, and appears structurally normal. No aortic stenosis or regurgitation. 14. There is trace mitral regurgitation. [employer] INSTRUCTOR: Dalila Bhat RDCS
== END | disposition home or self-care (01) ==
LOC: RADECHMAIN 14:40
PROVIDERS: ATTEND Family Medicine
DX: I48.0 Paroxysmal atrial fibrillation (principal); I10 Essential (primary) hypertension
CPT/HCPCS: 93306

== ENCOUNTER 2017-04-29 07:00 | Day surgery (SDC) | payer BC ==
[2017-04-27 12:05] VITALS: BMI 36.5
[~2017-04-29 07:00] MED LIST: ALPRAZolam 0.25 MG TAB PO PRN; DEXAMETHASONE SOD PHOSPHATE 10 MG/ML 1 ML VIAL IV ONE; HEPARIN SODIUM,PORCINE 5,000 UNIT/ML 1 ML VIAL SQ ONE; HYDROmorphone 1 MG/ML 1 ML SYRINGE IVP PRN; LACTATED RINGERS 1,000 ML IV SCH; ONDANSETRON 4 MG/2 ML VIAL IVP ONE; Pre Op ABX Message 1 EACH MISC MISCELLANE ONE
[2017-04-29 08:05] VITALS: RESP 16
[2017-04-29] MEDS ORDERED: fentaNYL (PF) 50 MCG/ML 2 ML AMP ONE (10:19)
[2017-04-29] MEDS ORDERED: PROPOFOL 10 MG/ML 20 ML VIAL IV ONE (10:19)
[2017-04-29] MEDS ORDERED: SUCCINYLCHOLINE CHLORIDE 100 MG/5 ML SYR IV ONE (10:19)
[2017-04-29] MEDS ORDERED: MIDAZOLAM 2 MG/2 ML VIAL ONE (10:19)
[2017-04-29] MEDS ORDERED: ePHEDrine SULFATE/0.9% NACL/PF 50 MG/5 ML SYRINGE IV ONE (10:19)
[2017-04-29] MEDS ORDERED: GLYCOPYRROLATE 0.2 MG/ML 2 ML VIAL ONE (10:19)
[2017-04-29] MEDS ORDERED: NALOXONE 0.4 MG/ML 1 ML VIAL IV PRN (10:53)
[2017-04-29] MEDS ORDERED: HYDROcodone/APAP 5-325MG 1 EACH TAB PO PRN (10:53)
--- NOTE | 2017-04-29 10:56 | P.PCN ---
Date of Procedure: 04/29/17 Procedure(s) Performed: PREOPERATIVE DIAGNOSIS: Abnormal right mammogram POSTOPERATIVE DIAGNOSIS: Same PROCEDURE: Right Breast wire localization biopsy SURGEON: Brandin EBL: Minimal ANESTHESIA: General COMPLICATIONS: None OPERATIVE PROCEDURE: Patient was placed on the operating room table in the supine position. The breast was prepped in the usual sterile fashion. The wire was entering the right breast at the 10:00 location. A curvilinear incision was made adjacent to the wire entrance site. I followed the wire down into the breast tissue. The breast tissue around the tip of the wire extending deep from there was excised. Clinically this appeared soft and free of significant induration. The specimen measured approximately 3-4 cm in diameter. The specimen was sent for radiograph. No bleeding was seen at the operative site. The subcutaneous tissues were closed using 3-0 Vicryl sutures. The skin was closed using a running 4-0 Monocryl stitch. Steri-Strips and sterile dressings were applied. DISPOSITION: Stable to recovery room
[2017-04-29 11:05] VITALS: TEMP 97.7
--- NOTE | 2017-04-29 11:32 | USB ---
EXAMINATION TYPE: US breast localization RT, MG diagnostic mammo RT wo CAD DATE OF EXAM: 04/29/2017 9:12 AM COMPARISON: NONE HISTORY: Right 9:00 breast density Informed consent was obtained and all the patient's questions were answered. The lesion in question was localized sonographically. The standard sterile technique was utilized. Patient deferred lidocaine given prior reaction. Localization needle followed by placement of a guidewire was performed under sonographic guidance. Verification images demonstrate appropriate deployment of the guidewire. The patient tolerated the procedure well and left the department in stable condition. Specimen radiograph demonstrates the density in question to reside within the specimen. IMPRESSION: Successful needle localization and open biopsy right breast with pathology results pending . Pathology Results: High Risk BREAST, RIGHT, EXCISION BIOPSY: INTRADUCTAL PAPILLOMA, MARGINS NEGATIVE. PROLIFERATIVE FIBROCYSTIC CHANGES INCLUDING NODULAR ADENOSIS WITH CALCIFICATIONS , COLUMNAR CELL HYPERPLASIA, CYSTS, FIBROSIS AND APOCRINE METAPLASIA. Recommendation Follow up mammogram of the right breast in 6 months. JULIANA
[2017-04-29 12:13] VITALS: BP 130/60; PULSE 89
== END 2017-04-29 12:28 | disposition home or self-care (01) ==
LOC: OR 07:00
PROVIDERS: ATTEND Surgery
DX: D24.1 Benign neoplasm of right breast (principal); N60.11 Diffuse cystic mastopathy of right breast; N60.21 Fibroadenosis of right breast; R92.1 Mammographic calcification found on diagnostic imaging of breast; N60.81 Other benign mammary dysplasias of right breast; Z85.3 Personal history of malignant neoplasm of breast; Z90.12 Acquired absence of left breast and nipple; Z80.3 Family history of malignant neoplasm of breast; Z88.4 Allergy status to anesthetic agent; I10 Essential (primary) hypertension; E78.5 Hyperlipidemia, unspecified; I48.91 Unspecified atrial fibrillation; Z79.01 Long term (current) use of anticoagulants; Z79.899 Other long term (current) drug therapy
CPT/HCPCS: 88307; 19285; 19125; G0206; J2250; J1100; J2405; J3010; J0330; J2704

== ENCOUNTER → 2017-06-03 | Outpatient (CLI) | payer MEDICARE, BC ==
[2017-06-03 14:37] LABS: CH 34.3; CHCM 34.4; HCT 38.4 % (34.0-46.0); HDW 2.97; HGB 12.7 gm/dL (11.4-16.0); MCH 33.2 pg (25.0-35.0); MCHC 33.1 g/dL (31.0-37.0); MCV 100.3 fL (80.0-100.0); Macrocytosis Slight; RBC 3.83 m/uL (3.80-5.40); RDW 15.3 % (11.5-15.5); WBC 8.6 k/uL (3.8-10.6)
[2017-06-03 14:38] LABS: Anion Gap 9 mmol/L; Blood Urea Nitrogen 23 mg/dL (7-17); Carbon Dioxide 23 mmol/L (22-30); Chloride 105 mmol/L (98-107); Non-African American GFR(MDRD) 51 (>60 ml/min/1.73 sqM); Sodium 137 mmol/L (137-145)
[2017-06-03 14:45] LABS: Potassium 4.4 mmol/L (3.5-5.1)
== END | disposition home or self-care (01) ==
LOC: LABPAT 13:58
PROVIDERS: ATTEND Internal Medicine Interventional Cardiology
DX: Z01.812 Encounter for preprocedural laboratory examination (principal); I25.10 Atherosclerotic heart disease of native coronary artery without angina pectoris
CPT/HCPCS: 36415; 80051; 82565; 84520; 85027

== ENCOUNTER 2017-06-19 09:34 | Day surgery (SDC) | payer MEDICARE, BC ==
[2017-06-15 15:10] VITALS: BMI 35.7
[~2017-06-19 09:34] MED LIST changes: +ALPRAZolam 0.5 MG TAB PO PRN; +ASPIRIN 325 MG TAB PO STA; -DEXAMETHASONE SOD PHOSPHATE 10 MG/ML 1 ML VIAL IV ONE; -HEPARIN SODIUM,PORCINE 5,000 UNIT/ML 1 ML VIAL SQ ONE; -HYDROmorphone 1 MG/ML 1 ML SYRINGE IVP PRN; -LACTATED RINGERS 1,000 ML IV SCH; +NITROGLYCERIN SL TABS 0.4 MG TAB SUBLINGUAL PRN; -ONDANSETRON 4 MG/2 ML VIAL IVP ONE; -Pre Op ABX Message 1 EACH MISC MISCELLANE ONE; +SODIUM CHLORIDE 0.9% 1,000 ML IV SCH
[2017-06-19] MEDS ORDERED: CHLOROPROCAINE 3% 30 MG/ML 20 ML VIAL MISCELLANE ONE (11:15)
[2017-06-19] MEDS ORDERED: IV FLUID CONTINUATION 1,000 ML IV ONE (12:30)
[2017-06-19] MEDS ORDERED: LIDOCAINE 2% INJ 20 MG/ML (20 ML MDV) ONE ×2 (12:51)
[2017-06-19] MEDS ORDERED: MIDAZOLAM 2 MG/2 ML VIAL ONE (12:54)
[2017-06-19] MEDS ORDERED: fentaNYL (PF) 50 MCG/ML 2 ML AMP ONE (12:54)
[2017-06-19] MEDS ORDERED: fentaNYL (PF) 50 MCG/ML 2 ML AMP IV ONE (12:58)
[2017-06-19] MEDS: MIDAZOLAM 2 MG/2 ML VIAL IV ONE ×2 (12:58→13:08)
[2017-06-19] MEDS ORDERED: RX INFO: IV CONTRAST WAS GIVEN 1 EACH MISC MISCELLANE PRN (13:24)
[2017-06-19] MEDS ORDERED: SODIUM CHLORIDE 0.9% 1,000 ML IV SCH (13:30)
--- NOTE | 2017-06-19 14:17 | LTR ---
June 19, [address] Sampson: Ms. Jewels Virk underwent a heart catheterization that revealed normal coronaries. I want to thank you for allowing me to participate in her care and please do not hesitate to call if you have any question or concern. Sincerely, MARLENI / JASMINE: [phone] /
--- NOTE | 2017-06-19 14:21 | CC ---
CARDIAC CATHETERIZATION REPORT DATE OF SERVICE: 06/19/2017 PERFORMING PHYSICIAN: Angelo Silveira MD, Fiber Locking Supervisor. PROCEDURE PERFORMED: 1. Selective right and left coronary angiogram. 2. Left heart catheterization. 3. Left ventriculography. INDICATION: This is a pleasant 67-year-old female patient who was referred to me by Dr. Kaplan for further evaluation of shortness of breath concerning for angina. She underwent a pulmonary workup, came into be unremarkable and in view of that, she was referred for further cardiac evaluation. APPROACH: Right common femoral artery. COMPLICATION: None. LEVEL OF SEDATION: Moderate with sedation length of 15 minutes. PROCEDURE DESCRIPTION: After obtaining an informed consent, the patient was brought to the Cardiac Speech And Language Specialist. The right common femoral artery was cannulated using micropuncture technique, the micropuncture wire passed easily, then I placed a 6-Yakut sheath in the right common femoral artery and I then I did selective right and left coronary angiogram using JR4 and JL4 catheters. After that, I did left heart catheterization and subsequently left ventriculography using 6-Yakut pigtail catheter. The procedure was completed without any complication. SELECTIVE CORONARY ANGIOGRAM: 1. The RCA is a large caliber vessel. It is a dominant vessel. It is angiographically normal. Distally bifurcates into PDA and PLV branches. Both are angiographically normal. 2. The left main is angiographically normal. It bifurcates into the left circumflex and left anterior descending artery. 3. The left circumflex is a large caliber vessel. It is a nondominant vessel. The proximal circ is angiographically normal and gives rise into a large OM branch which seems to be angiographically normal. The mid circ is angiographically normal. It gives rise into a second OM branch which seems to be angiographically normal and the circ continued after that as a small caliber vessel in the AV groove. 4. The left anterior descending artery: The proximal LAD is angiographically normal and gives rise into a large diag branch which seems to be angiographically normal. The mid LAD is angiographically normal and gives rise into a second diag branch which seems to be angiographically normal and is angiographically normal. HEMODYNAMICS: The left ventricular end-diastolic pressure was 15 mmHg and no gradient was identified across the aortic valve. Left ventriculography was performed in the PATTERSON projection and using a power injection, the left ventricular systolic function is normal with an ejection fraction of 60% and normal wall motion. CONCLUSION: 1. Normal coronary angiogram. 2. Normal left ventricular systolic function. Postprocedure management is medical treatment and follow up with me. MARLENI / JASMINE: [id number] /
[2017-06-19 16:16] VITALS: RESP 18; TEMP 98.2
[2017-06-19 17:57] VITALS: BP 113/69
[2017-06-19 20:20] VITALS: PULSE 74
== END 2017-06-19 20:05 | disposition home or self-care (01) ==
LOC: CATHCVL 09:34 → 3OBS 15:39 → CATHCVL 20:05
PROVIDERS: ATTEND Internal Medicine Interventional Cardiology
DX: R06.02 Shortness of breath (principal); I48.0 Paroxysmal atrial fibrillation; I10 Essential (primary) hypertension; E78.00 Pure hypercholesterolemia, unspecified; I25.110 Atherosclerotic heart disease of native coronary artery with unstable angina pectoris; Z86.718 Personal history of other venous thrombosis and embolism; Z86.711 Personal history of pulmonary embolism; M19.90 Unspecified osteoarthritis, unspecified site; Z88.8 Allergy status to other drugs, medicaments and biological substances; Z85.3 Personal history of malignant neoplasm of breast; Z87.891 Personal history of nicotine dependence; Z79.01 Long term (current) use of anticoagulants; Z79.899 Other long term (current) drug therapy
CPT/HCPCS: 93458; C1760; C1894; C1769 ×2; J2250; J3010

== ENCOUNTER → 2017-10-19 | Outpatient (CLI) | payer MEDICARE, BC ==
--- NOTE | 2017-10-19 14:22 | MM ---
Reason for exam: follow-up at short interval from prior study. Last mammogram was performed 6 months ago. History: Patient is postmenopausal, has history of high-risk lesion on a previous biopsy at age 66, and has history of breast cancer at age 53. Family history of breast cancer in sister at age 50, breast cancer in mother at age 60, and breast cancer in relative at age 30. High risk US breast localization RT of the right breast, April 29, 2017. Malignant stereotactic core biopsy of the left breast, February 09, 2004. Mastectomy of the left breast, 2003. Chemotherapy, 2003. Benign excisional biopsy of the right breast, January 28, 2001. Cancelled Procedure of the right breast, January 08, 2001. Core biopsy of the left breast. 2 excisional biopsies of the left breast. Mastectomy of the left breast. Chemotherapy. TRAM Reconstruction of the left breast. Took estrogen for 10 years beginning at age 38. Took tamoxifen for 5 years beginning at age 54. Physical Findings: Nurse Summary: 0.5cm nodule in the right breast at 3 o'clock (nurse mj). MG 3D Diag Mammo W/Cad RT CC and MLO view(s) were taken of the right breast. Prior study comparison: April 29, 2017, right breast MG diagnostic mammo RT wo CAD. March 09, 2017, right breast MG 3d diag mammo w/cad RT. There are scattered fibroglandular densities. Finding: There are typically benign vascular, round calcifications in the right breast. There is a chronic nodularity in the right breast. These results were verbally communicated with the patient and result sheet given to the patient on 10/19/17. ASSESSMENT: Benign, BI-RAD 2 RECOMMENDATION: Ultrasound of the right breast. (palpable)
--- NOTE | 2017-10-19 14:23 | USB ---
Reason for exam: additional evaluation requested from abnormal screening. History: Patient is postmenopausal, has history of high-risk lesion on a previous biopsy at age 66, and has history of breast cancer at age 53. Family history of breast cancer in sister at age 50, breast cancer in mother at age 60, and breast cancer in relative at age 30. High risk US breast localization RT of the right breast, April 29, 2017. Malignant stereotactic core biopsy of the left breast, February 09, 2004. Mastectomy of the left breast, 2003. Chemotherapy, 2003. Benign excisional biopsy of the right breast, January 28, 2001. Cancelled Procedure of the right breast, January 08, 2001. Core biopsy of the left breast. 2 excisional biopsies of the left breast. Mastectomy of the left breast. Chemotherapy. TRAM Reconstruction of the left breast. Took estrogen for 10 years beginning at age 38. Took tamoxifen for 5 years beginning at age 54. US Breast Limited RT Right breast ultrasound demonstrates no cystic or solid lesion seen. These results were verbally communicated with the patient and result sheet given to the patient on 10/19/17. ASSESSMENT: Negative, BI-RAD 1 RECOMMENDATION: Follow-up diagnostic mammogram of the right breast in 1 year.
== END | disposition home or self-care (01) ==
LOC: RADMAMWWP 12:42
PROVIDERS: ATTEND Surgery
DX: R92.8 Other abnormal and inconclusive findings on diagnostic imaging of breast (principal)
CPT/HCPCS: 77065; 76642; G0279

== ENCOUNTER 2017-12-23 10:38 | Day surgery (SDC) | payer MEDICARE, BC ==
[2017-12-18 15:42] VITALS: BMI 37.2
[~2017-12-23 10:38] MED LIST changes: -ALPRAZolam 0.25 MG TAB PO PRN; -ALPRAZolam 0.5 MG TAB PO PRN; -ASPIRIN 325 MG TAB PO STA; +LACTATED RINGERS 1,000 ML IV SCH; +LIDOCAINE 1% 20 ML VIAL (10MG/ML) FOR IV START INTRADERMA PRN; +MIDAZOLAM 2 MG/2 ML VIAL IV PRN; -NITROGLYCERIN SL TABS 0.4 MG TAB SUBLINGUAL PRN; -SODIUM CHLORIDE 0.9% 1,000 ML IV SCH
[2017-12-23 11:26] VITALS: TEMP 98.2
--- NOTE | 2017-12-23 11:41 | P.GSHP ---
History of Present Illness H&P Date: 12/23/17 Chief Complaint: Screening, history of polyps 67-year-old female with history of colon polyps. Last colon polyp found 5 years ago. No bowel related complaints. Past Medical History Past Medical History: Atrial Fibrillation, Cancer, Deep Vein Thrombosis (DVT), Eye Disorder, Hyperlipidemia, Hypertension, Osteoarthritis (OA), Pulmonary Embolus (PE), Skin Disorder Additional Past Medical History / Comment(s): hx of colon polyps, LT BREAST CA 2003.-please use paper tape only. BILAT CORNEAL/FUCHS DYSTROPHY, DO NOT USE LEFT ARM (LEFT MASTECTOMY). hx SHINGLES History of Any Multi-Drug Resistant Organisms: None Reported Past Surgical History: Breast Surgery, Ear Surgery, Heart Catheterization, Joint Replacement, Orthopedic Surgery Additional Past Surgical History / Comment(s): OOPHORECTOMY, lt knee rebuilt 1983, lt ankle, rt hip replaced 2002, lt breast cancer MASTECTOMY 2003, lt knee replaced 2006, right shoulder ROTATOR CUFF,rt cataract removal and cornea transplant , colonoscopy, RT BREAST LUMPECTOMY Past Anesthesia/Blood Transfusion Reactions: Previous Problems w/ Anesthesia, Motion Sickness Additional Past Anesthesia/Blood Transfusion Reaction / Comment(s): trouble waking up in past after eye sx, and went into Afib Smoking Status: Former smoker - Past Family History Mother Brother(s) Family Medical History: Cancer, Deep Vein Thrombosis (DVT) Additional Family Medical History / Comment(s): mom breast, brother melanoma Sister(s) Daughter(s) Family Medical History: Cancer Additional Family Medical History / Comment(s): daughter cervical and uterine ca , sister breast Father Family Medical History: Cancer Additional Family Medical History / Comment(s): colon Brother(s) Family Medical History: Cancer Medications and Allergies Home Medications Medication Instructions Recorded Confirmed Type Atorvastatin [Lipitor] 10 mg PO DAILY 09/11/15 12/23/17 History Cholecalciferol [Vitamin D3] 3,000 unit PO DAILY 09/11/15 12/23/17 History Losartan [Cozaar] 50 mg PO DAILY 09/11/15 12/18/17 History Metoprolol Succinate [Toprol XL] 25 mg PO DAILY 11/27/15 12/18/17 History Rivaroxaban [Xarelto] 20 mg PO DAILY #30 tab 05/01/16 12/23/17 Rx Flecainide Acetate [Tambocor] 100 mg PO DAILY PRN 03/17/17 12/23/17 History Triamterene-Hctz 37.5-25Mg 1 cap PO DAILY 03/17/17 12/23/17 History [Dyazide 37.5-25 Capsule] Sodium Chloride 5% Ophth Soln 1 drops RIGHT EYE Q6H 06/15/17 12/18/17 History [Luis 128] prednisoLONE ACETATE 1% OPHTH 1 drops RIGHT EYE YOON 06/15/17 12/18/17 History [Pred Forte 1%] Allergies Allergy/AdvReac Type Severity Reaction Status Date / Time lidocaine Allergy Anaphylaxis Verified 12/23/17 11:26 atropine AdvReac AFIB Verified 12/23/17 11:26 "CE" Allergy Anaphylaxis Uncoded 12/23/17 11:26 Surgical - Exam Vital Signs Temp Pulse Resp BP Pulse Ox 98.2 F 63 16 126/80 96 12/23/17 11:25 12/23/17 11:25 12/23/17 11:25 12/23/17 11:25 12/23/17 11:25 Physical exam: General: Well-developed, well-nourished HEENT: Normocephalic, sclerae nonicteric Abdomen: Nontender, nondistended Extremities: No edema Neuro: Alert and oriented Assessment and Plan (1) Colon cancer screening Narrative/Plan: Will proceed with colonoscopy at this time. Current Visit: Yes Status: Acute Code(s): Z12.11 - ENCOUNTER FOR SCREENING FOR MALIGNANT NEOPLASM OF COLON SNOMED Code(s): 154018161
[2017-12-23] MEDS ORDERED: PROPOFOL 10 MG/ML 20 ML VIAL IV ONE (11:47)
--- NOTE | 2017-12-23 12:02 | P.PCN ---
Date of Procedure: 12/23/17 Procedure(s) Performed: PREOPERATIVE DIAGNOSIS: Colon cancer screening POSTOPERATIVE DIAGNOSIS: Mild diverticulosis PROCEDURE: Colonoscopy ANESTHESIA: MAC SURGEON: Rinku Ghotra M.D. SPECIMENS: None ENDOSCOPIC PROCEDURE: The patient was placed on the endoscopy table in the left decubitus position. The Olympus colonoscope was inserted into the anus and passed under direct visualization to the base of the cecum. The appendiceal orifice was visualized. From that point the scope was slowly withdrawn inspecting all surfaces carefully. There were no neoplastic inflammatory or polypoid lesions throughout the cecum, ascending, transverse, descending, sigmoid and rectum. There was mild diverticulosis noted. Digital rectal examination was normal. The patient was taken to the recovery room in stable condition per anesthesia guidelines. RECOMMENDATIONS: Increase fiber. Follow-up colonoscopy in 5 years because of the patient's history of polyps and family history of colon cancer in her father.
[2017-12-23 12:08] VITALS: RESP 18
[2017-12-23 12:58] VITALS: BP 134/71; PULSE 67
== END 2017-12-23 13:07 | disposition home or self-care (01) ==
LOC: ORWHC2ENDO 10:38
PROVIDERS: ATTEND Surgery
DX: Z12.11 Encounter for screening for malignant neoplasm of colon (principal); K57.90 Diverticulosis of intestine, part unspecified, without perforation or abscess without bleeding; Z86.010 Personal history of colon polyps; Z80.0 Family history of malignant neoplasm of digestive organs; I10 Essential (primary) hypertension; E78.5 Hyperlipidemia, unspecified; I48.91 Unspecified atrial fibrillation; H18.51 Endothelial corneal dystrophy; Z79.01 Long term (current) use of anticoagulants; Z86.718 Personal history of other venous thrombosis and embolism; M19.90 Unspecified osteoarthritis, unspecified site; Z86.711 Personal history of pulmonary embolism; Z85.3 Personal history of malignant neoplasm of breast; Z87.891 Personal history of nicotine dependence; Z90.12 Acquired absence of left breast and nipple; Z79.899 Other long term (current) drug therapy
CPT/HCPCS: J2704; G0105

== ENCOUNTER 2018-01-07 11:15 | Day surgery (SDC) | payer MEDICARE, BC ==
[~2018-01-07 11:15] MED LIST changes: +FAMOTIDINE 20 MG/2 ML VIAL IV ONE; -LACTATED RINGERS 1,000 ML IV SCH; -LIDOCAINE 1% 20 ML VIAL (10MG/ML) FOR IV START INTRADERMA PRN; -MIDAZOLAM 2 MG/2 ML VIAL IV PRN; +Pre Op ABX Message 1 EACH MISC MISCELLANE ONE
[2018-01-07] MEDS: OXYMETAZOLINE 0.05% NASL SPRAY 1 SPRAY BOTTLE NASAL ONE ×4 (12:35→12:50)
[2018-01-07] MEDS ORDERED: HYDROmorphone 0.5 MG/0.5 ML SYRINGE IVP PRN (12:46)
[2018-01-07] MEDS ORDERED: ONDANSETRON 4 MG/2 ML VIAL IVP ONE ×2 (12:46→16:14)
[2018-01-07] MEDS ORDERED: LACTATED RINGERS 1,000 ML IV SCH (12:46)
[2018-01-07] MEDS ORDERED: DEXAMETHASONE SOD PHOSPHATE 10 MG/ML 1 ML VIAL IV ONE (12:46)
[2018-01-07] MEDS ORDERED: SILVER NITRATE APPLICATOR 1 EACH STICK..EA. TOPICAL ONE ×2 (13:59→14:31)
[2018-01-07] MEDS ORDERED: FLUORESCEIN STRIPS 1 MG STRIP MISCELLANE ONE (14:05)
[2018-01-07] MEDS ORDERED: EPINEPHrine 1 MG/ML (MDV) 30 ML VIAL TOPICAL ONE ×2 (14:05)
[2018-01-07] MEDS ORDERED: fentaNYL (PF) 50 MCG/ML 2 ML AMP ONE (14:07)
[2018-01-07] MEDS ORDERED: SUCCINYLCHOLINE CHLORIDE VIAL 200 MG/10 ML VIAL IV ONE (14:07)
[2018-01-07] MEDS ORDERED: MIDAZOLAM 2 MG/2 ML VIAL ONE (14:07)
[2018-01-07] MEDS ORDERED: PHENYLEPHRINE-0.9% NACL SYG 1 MG/10 ML SYRINGE ONE (14:07)
[2018-01-07] MEDS ORDERED: PROPOFOL 10 MG/ML 20 ML VIAL IV ONE (14:07)
[2018-01-07 14:50] VITALS: TEMP 96.8
--- NOTE | 2018-01-07 15:08 | P.OP ---
Date of Procedure: 01/07/18 Preoperative Diagnosis: Recurring epistaxis Postoperative Diagnosis: Same Procedure(s) Performed: Endoscopic control of complex epistaxis anterior posterior right side Anesthesia: GETA Surgeon: Jose Castro Estimated Blood Loss (ml): 2 Pathology: none sent Condition: stable Disposition: PACU Indications for Procedure: Patient's been having recurring epistaxis from the right side. Patient is ALLERGIC to any lidocaine. Cauterization is needed. We felt that we should do this endoscopically under general anesthetic due to the patient's need for anticoagulant therapy and severe ALLERGY to lidocaine and all other topical anesthetics. Operative Findings: Several areas of friability of the right nasal septum which was cauterized with silver nitrate Description of Procedure: Patient was taken to the operative room and placed in the supine position. A general inhalation anesthetic was administered to the patient by mask and subsequently intubated with a cuffed endotracheal tube by the department of anesthesia with a functioning IV line in place. The patient was monitored throughout the entire case by the department of anesthesia. The nose was evaluated endoscopically on both sides. We did a complete nasal endoscopy anteriorly to posteriorly superiorly to inferior. There were 3 areas of friability of the right septum one was posterior one was at the midportion and one was anterior. These areas underwent silver nitrate cauterization and the patient tolerated this well. Follow-up will be in the office as needed.
[2018-01-07 15:58] VITALS: RESP 18
[2018-01-07 16:57] VITALS: BP 120/74; PULSE 71
== END 2018-01-07 17:21 | disposition home or self-care (01) ==
LOC: OR 11:15
PROVIDERS: ATTEND Otolaryngology
DX: R04.0 Epistaxis (principal); I48.91 Unspecified atrial fibrillation; E78.00 Pure hypercholesterolemia, unspecified; I10 Essential (primary) hypertension; E78.5 Hyperlipidemia, unspecified; Z86.718 Personal history of other venous thrombosis and embolism; Z86.711 Personal history of pulmonary embolism; Z87.891 Personal history of nicotine dependence; Z79.52 Long term (current) use of systemic steroids; Z79.899 Other long term (current) drug therapy; Z88.4 Allergy status to anesthetic agent; Z88.8 Allergy status to other drugs, medicaments and biological substances; Z79.01 Long term (current) use of anticoagulants
CPT/HCPCS: 31238; J2250; J0330; J1100; J2405; J3010; J2370; J2704; J1170

== ENCOUNTER → 2018-01-12 | Outpatient (CLI) | payer MEDICARE, BC ==
--- NOTE | 2018-01-12 14:07 | US ---
EXAMINATION TYPE: US venous doppler duplex LE DATE OF EXAM: 01/12/2018 1:13 PM COMPARISON: US CLINICAL HISTORY: Localized Edema R60.0. SIDE PERFORMED: Bilateral TECHNIQUE: The lower extremity deep venous system is examined utilizing real time linear array sonog alessandro with graded compression, doppler sonography and color-flow sonography. VESSELS IMAGED: External Iliac Vein (EIV) Common Femoral Vein Deep Femoral Vein Greater Saphenous Vein * Femoral Vein Popliteal Vein Proximal Calf Veins (* superficial vessels) Grayscale, color doppler, spectral doppler imaging performed of the deep veins of the lower extremiti es. There is normal flow, compressibility, vascular waveforms. Right Leg: Negative for DVT Left Leg: Negative for DVT IMPRESSION: no evidence for DVT
== END | disposition home or self-care (01) ==
LOC: RADUSWWP 12:41
PROVIDERS: ATTEND Family Medicine
DX: R60.0 Localized edema (principal); Z88.4 Allergy status to anesthetic agent; Z88.8 Allergy status to other drugs, medicaments and biological substances
CPT/HCPCS: 93922; 93970

== ENCOUNTER 2018-04-28 06:03 | Day surgery (SDC) | payer MEDICARE, BC ==
[2018-04-22 15:02] VITALS: BMI 37.2
[~2018-04-28 06:03] MED LIST changes: -FAMOTIDINE 20 MG/2 ML VIAL IV ONE; +LACTATED RINGERS 1,000 ML IV SCH; +MOXIFLOXACIN HCL 0.5% DROPS 3 ML BTL OP ONE; -Pre Op ABX Message 1 EACH MISC MISCELLANE ONE; +TETRACAINE 0.5% OPHTH (PF) DROPS 4 ML BTL OP ONE; +TIMOLOL 0.5% OPHTH DROPS 5 ML BTL OP ONE
[2018-04-28] MEDS: CYCLOPENTOLATE 1% OPHTH SOLN 2 ML BTL OP ONE ×3 (06:15→06:28)
[2018-04-28] MEDS: PHENYLEPHRINE 2.5% OPHTH DRP 2ML OP NR ×3 (06:18→06:31)
[2018-04-28] MEDS ORDERED: LACTATED RINGERS 1,000 ML IV ONE ×2 (06:54→09:30)
[2018-04-28] MEDS ORDERED: ePHEDrine SULFATE/0.9% NACL/PF 50 MG/5 ML SYRINGE IV ONE (07:45)
[2018-04-28] MEDS ORDERED: CALCIUM CHLORIDE 100 MG/ML 10 ML SYRINGE ONE (07:45)
[2018-04-28] MEDS ORDERED: MIDAZOLAM 2 MG/2 ML VIAL ONE ×2 (07:45→12:23)
[2018-04-28] MEDS ORDERED: ONDANSETRON 4 MG/2 ML VIAL ONE (07:45)
[2018-04-28] MEDS ORDERED: LIDOCAINE 1% INJ 10MG/ML (20 ML MDV) ONE (07:45)
[2018-04-28] MEDS ORDERED: PROPOFOL 10 MG/ML 20 ML VIAL IV ONE (07:45)
[2018-04-28] MEDS ORDERED: fentaNYL (PF) 50 MCG/ML 2 ML AMP ONE (07:45)
[2018-04-28] MEDS ORDERED: BALANCED SALT IRRIG SOLN COMB2 15 ML IRRIG.SOLN IRRIGATION ONE (08:23)
[2018-04-28] MEDS ORDERED: HYALURONATE SODIUM INTRAOCULAR 1 EACH SYRINGE (12MG/ML) INTRAOCULA ONE (08:24)
[2018-04-28] MEDS ORDERED: EPINEPHrine (PF) 0.3 ML in BALANCED SALT IRRIG SOLN COMB2 500 ML IRRIGATION ONE (08:24)
[2018-04-28] MEDS ORDERED: TRYPAN BLUE 0.06% SYRINGE 0.5 ML SYRINGE INTRAOCULA ONE (08:26)
[2018-04-28] MEDS ORDERED: [UNRECOGNIZED DRUG - OTHER] LEFT EYE ONE (08:26)
[2018-04-28] MEDS ORDERED: ACETYLCHOLINE CHLORIDE 10 MG/ML 2 ML KIT INTRAOCULA ONE (09:06)
--- NOTE | 2018-04-28 09:33 | P.OP ---
Date of Procedure: 04/28/18 Preoperative Diagnosis: NS & Fuch's dystrophy Postoperative Diagnosis: same Procedure(s) Performed: PIOL & DMEK OS Implants: PCB00 23.00 Anesthesia: MAC Surgeon: Sherman Bunch Estimated Blood Loss (ml): 0 Pathology: other (transplant tissue for C&S) Condition: stable Disposition: same day Indications for Procedure: blurry vision and corneal failure Operative Findings: no complications
[2018-04-28 10:16] VITALS: TEMP 6.9
[2018-04-28 12:59] VITALS: RESP 18
[2018-04-28] MEDS ORDERED: ONDANSETRON 4 MG/2 ML VIAL IVP ONE (13:01)
[2018-04-28 13:23] VITALS: BP 131/83; PULSE 106
--- NOTE | 2018-04-29 07:17 | OP ---
OPERATIVE REPORT DATE OF SERVICE: 04/28/2018. PROCEDURES: Phacoemulsification of cataract and intraocular lens implant of the left eye with Descemet's membrane endothelial keratoplasty of the left eye. 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 SURGEON: Dr. Sherman Bunch. ANESTHESIA: General. ESTIMATED BLOOD LOSS: None. SPECIMEN TAKEN: None. NARRATIVE: After obtaining the appropriate consent, the patient was brought to the operating room. There she was placed under cardiac monitoring and induced into general anesthesia and intubated. She was approached from her left temporal side and at the 11 o'clock position as well as the 2 o'clock, 4 o'clock and 8 o'clock, a 20-gauge paracentesis knife was used to create a paracentesis. Through the 11 o'clock opening Amvisc was used to stabilize the anterior chamber. At the 9 o'clock position, a 2.5 mm keratome was used to create a self-sealing corneal flap incision. Through this opening, a cystotome was introduced to begin a continuous tear capsulorrhexis which was completed using the Utrata forceps. Hydrodissection and hydrodelineation of the lens was accomplished with balanced salt solution. Phacoemulsification of the lens utilizing phaco chop was accomplished 12.79 seconds at 12% power. The remaining cortex was cleaned using irrigation and aspiration as well as careful polishing of the posterior capsule in the capsule vacuum mode. An TONE PCB00 23.0 diopter posterior chamber intraocular lens was then introduced into the capsular bag without difficulty. The remaining viscoelastic from in and around the intraocular lens as well as the anterior chamber was removed under irrigation and aspiration. Miostat was used to bring about miosis and Trypan blue was instilled into the anterior chamber for approximately 3 minutes and then washed away with balanced salt solution. An 8.0 mm ring inked in gentian romel was then placed on the patient's cornea. This was followed by introduction of a Trejo Sinskey hook and an outline of the ring on the endothelial side was created using a Descemet's membrane stripper the entire 8 mm diameter central Descemet's membrane was removed from the anterior chamber. The temporal incision was enlarged to 2.75 mm and the previously prepared corneal tissue identified as [id number] was placed on a 3 mm syringe with balanced salt solution. The end cap of the Latif tube was removed and brought to the field after confirmation that the Latif tube would adequately fit in the 2.75 mm opening. Once placed in the temporal incision, gentle pressure moved the scrolled Descemet's tissue into the anterior chamber and care was taken to ensure with removal of the Latif tube that the tissue remained in place. A 10- 0 nylon suture was used to close the incision in an X fashion. Initial attempts at unrolling the scrolled corneal tissue were met with some difficulty and realizing that the Miostat had not brought around adequate miosis. Miochol was then instilled into the anterior chamber with a significant improvement in the amount of pupillary miosis. An attempt was then made to unroll the corneal tissue with no difficulty. Identifying the stromal simran previously placed on the donor tissue at the eye bank, confirmation of the tissue being in the proper orientation was confirmed. SF6 was then used to buoy the donor tissue and reinflate the eye to maintain contact of the donor and host for 15 minutes. At the end of that period of time, a small amount of the SF6 gas was removed and placement of a balanced salt solution in the eye was used to approximate a 40% gas fill in the anterior chamber. The patient received 2 drops of 0.5% timolol, 2 drops of Vigamox and was shielded in the normal fashion. She was to remain in the supine position and was returned to the recovery area for approximately an hour. She was then asked to be seen in an upright fashion at the slit lamp and it was determined that the intra-ocular pressure was higher than desired at that point in time. She also had limited vision from the eye because of the increased intraocular pressure. Attempts at the slit lamp to evacuate some of the air was not accomplished, so therefore she was returned to the operating room, placed in the supine position, and using an irrigating cannula with a 27-gauge needle tip on it was used to both remove some of the SF6 and further deepen the anterior chamber with balanced salt solution. Approximately an half an hour to 45 minutes later after the patient had been returned to the recovery area once again she was examined at the slit lamp and with a much improved perception of light as well as a more normal intraocular pressure appreciated by palpation. She was then permitted to return home following the instructions that she was given for the procedure. There were no complications from the procedure. She tolerated the procedure well and was sent home without further difficulties. MARLENI / NICON: [id number] /
== END 2018-04-28 14:04 | disposition home or self-care (01) ==
LOC: OR 06:03
PROVIDERS: ATTEND Ophthalmology
DX: H25.12 Age-related nuclear cataract, left eye (principal); H18.51 Endothelial corneal dystrophy; H52.32 Aniseikonia; H52.02 Hypermetropia, left eye; H21.521 Goniosynechiae, right eye; H52.11 Myopia, right eye; Z94.7 Corneal transplant status; Z96.1 Presence of intraocular lens; I10 Essential (primary) hypertension; I48.91 Unspecified atrial fibrillation; Z79.01 Long term (current) use of anticoagulants; Z79.899 Other long term (current) drug therapy; Z88.4 Allergy status to anesthetic agent; Z88.8 Allergy status to other drugs, medicaments and biological substances
CPT/HCPCS: 87070; 87205; 87075; 66984; 65756; V2785; C1780; J2250; J2405; J0171; J2001; J3010; J2704

== ENCOUNTER 2018-05-13 14:25 | Day surgery (SDC) | payer MEDICARE, BC ==
[2018-05-13 14:45] VITALS: RESP 16; TEMP 97.4
[2018-05-13] MEDS ORDERED: LACTATED RINGERS 1,000 ML IV ONE (15:02)
[2018-05-13] MEDS: PILOCARPINE 2% OPHTH DROPS 15 ML BTL OP SCH ×3 (15:19→15:29)
[2018-05-13] MEDS ORDERED: MIDAZOLAM 2 MG/2 ML VIAL ONE (15:31)
[2018-05-13] MEDS ORDERED: fentaNYL (PF) 50 MCG/ML 2 ML AMP ONE (15:31)
[2018-05-13] MEDS ORDERED: LIDOCAINE 1% INJ 10MG/ML (10 ML MDV) SQ ONE (15:31)
[2018-05-13] MEDS ORDERED: BALANCED SALT IRRIG SOLN COMB2 15 ML IRRIG.SOLN INTRAOCULA ONE (15:31)
--- NOTE | 2018-05-13 15:56 | P.OP ---
Date of Procedure: 05/13/18 Preoperative Diagnosis: DMEK separation Postoperative Diagnosis: same Procedure(s) Performed: rebubbling Implants: none Anesthesia: MAC Surgeon: Sherman Bunch Estimated Blood Loss (ml): 0 Pathology: none sent Condition: stable Disposition: same day Indications for Procedure: poorly adherent DMEK Operative Findings: No complications
[2018-05-13 16:13] VITALS: BP 113/73; PULSE 58
--- NOTE | 2018-05-13 20:39 | OP ---
OPERATIVE REPORT DATE OF PROCEDURE: May 13, 2018. PROCEDURE: Re- bubbling DMEK graft of the left eye. PREOPERATIVE DIAGNOSES: Partial detachment of Descemet membrane endothelial keratoplasty graft to the left eye. POSTOPERATIVE DIAGNOSES: Partial detachment of Descemet membrane endothelial keratoplasty graft to the left eye. SURGEON: Dr. Sherman Bunch. ANESTHESIA: Topical. ESTIMATED BLOOD LOSS: Estimated blood loss is none. SPECIMEN TAKEN: None. NARRATIVE: Approximately 2 weeks following combined cataract surgery with DMEK transplantation of the left eye, it was appreciated today that the clarity of vision was not improving as one would normally expect at this stage of post transplant surgery. Investigation with OCT identified a significant partial DMEK graft detachment involving the inferior half of the patient's eye. There was additionally a moderate amount of microcystic edema within the stroma of the patient's cornea itself. It was decided at this time rather than a simple airy bubble that using SF6, which would last for several days longer would be the most appropriate approach to try and reattached to reattach the tissue. Therefore, the patient was brought to the operating room to correct the problem. After obtaining the appropriate consent, the patient was brought to the operating room. There she was placed on cardiac monitoring, prepped and draped in the usual sterile manner. She was approached from her left temporal side. Identification of the area of the graft, which was most strongly adherent was determined and a paracentesis with an MVR blade was created at the 1 o'clock position on the patient's eye. Through this opening, a very small amount of 1% lidocaine MPF 50/50 mix of balanced salt solution was injected into the anterior chamber. This was followed by injection of 20% sulfur hex fluoride into the chamber resulting in a 30-40 percent gas bubble in the anterior chamber. Intraocular pressure at the end of the case was approximately 25 mmHg. She then received 2 drops of moxifloxacin and then was shielded in the proper fashion. There were no complications from the procedure. She tolerated the procedure well and was returned to outpatient recovery in good condition. MMODL / IJN: [id number] /
== END 2018-05-13 16:34 | disposition home or self-care (01) ==
LOC: OR 14:25
PROVIDERS: ATTEND Ophthalmology
DX: T85.398A Other mechanical complication of other ocular prosthetic devices, implants and grafts, initial encounter (principal); Z91.09 Other allergy status, other than to drugs and biological substances; I10 Essential (primary) hypertension; I48.91 Unspecified atrial fibrillation; Z79.01 Long term (current) use of anticoagulants; Z79.899 Other long term (current) drug therapy; M19.90 Unspecified osteoarthritis, unspecified site; Z87.891 Personal history of nicotine dependence; E78.5 Hyperlipidemia, unspecified

== ENCOUNTER → 2018-10-20 | Outpatient (CLI) | payer MEDICARE, BC ==
--- NOTE | 2018-10-21 07:54 | MM ---
Reason for exam: additional evaluation requested from prior study. Last mammogram was performed 1 year ago. History: Patient is postmenopausal, has history of high-risk lesion on a previous biopsy at age 66, and has history of breast cancer at age 53. Family history of breast cancer in sister at age 50, breast cancer in mother at age 60, and breast cancer in relative at age 30. High risk US breast localization RT of the right breast, April 29, 2017. Malignant stereotactic core biopsy of the left breast, February 09, 2004. Mastectomy of the left breast, 2003. Chemotherapy, 2003. Benign excisional biopsy of the right breast, January 28, 2001. Cancelled Procedure of the right breast, January 08, 2001. Core biopsy of the left breast. 2 excisional biopsies of the left breast. Mastectomy of the left breast. Chemotherapy. TRAM Reconstruction of the left breast. Took estrogen for 10 years beginning at age 38. Took tamoxifen for 5 years beginning at age 54. Physical Findings: Nurse did not find any significant physical abnormalities on exam. MG 3D Diag Mammo W/Cad RT CC and MLO view(s) were taken of the right breast. Prior study comparison: October 19, 2017, right breast MG 3d diag mammo w/cad RT. April 29, 2017, right breast MG diagnostic mammo RT wo CAD. The breast tissue is heterogeneously dense. This may lower the sensitivity of mammography. There are benign appearing vascular calcifications in the right breast. There is chronic nodularity in the right breast. There is no discrete abnormality. These results were verbally communicated with the patient and result sheet given to the patient on 10/20/18. ASSESSMENT: Benign, BI-RAD 2 RECOMMENDATION: Follow-up diagnostic mammogram of the right breast in 6 months.
== END ==
LOC: RADMAMWWP 13:05
PROVIDERS: ATTEND Family Medicine
DX: R92.8 Other abnormal and inconclusive findings on diagnostic imaging of breast (principal)
CPT/HCPCS: 77065; G0279; 77061

== ENCOUNTER → 2019-04-29 | Outpatient (CLI) | payer MEDICARE, BC ==
--- NOTE | 2019-04-29 10:49 | MM ---
Reason for exam: follow-up at short interval from prior study. Last mammogram was performed 6 months ago. History: Patient is postmenopausal, has history of high-risk lesion on a previous biopsy at age 66, and has history of breast cancer at age 53. Family history of breast cancer in sister at age 50, breast cancer in mother at age 60, and breast cancer in relative at age 30. High risk US breast localization RT of the right breast, April 29, 2017. Malignant stereotactic core biopsy of the left breast, February 09, 2004. Mastectomy of the left breast, 2003. Chemotherapy, 2003. Benign excisional biopsy of the right breast, January 28, 2001. Cancelled Procedure of the right breast, January 08, 2001. Core biopsy of the left breast. 2 excisional biopsies of the left breast. Mastectomy of the left breast. Chemotherapy. TRAM Reconstruction of the left breast. Took estrogen for 10 years beginning at age 38. Took tamoxifen for 5 years beginning at age 54. Physical Findings: Nurse Summary: 1.5 x 0.5cm nodule in the right breast at 2 o'clock (nurse TM). MG 3D Diag Mammo W/Cad RT CC and MLO view(s) were taken of the right breast. Prior study comparison: October 20, 2018, right breast MG 3d diag mammo w/cad RT. October 19, 2017, right breast MG 3d diag mammo w/cad RT. The breast tissue is heterogeneously dense. This may lower the sensitivity of mammography. There is a 3mm mass 7-8cm from nipple in the upper outer quadrant. Focal asymmetry at the palpable in the lower inner quadrant. Benign appearing bilateral calcifications. These results were verbally communicated with the patient and result sheet given to the patient on 04/29/19. ASSESSMENT: Incomplete: need additional imaging evaluation, BI-RAD 0 RECOMMENDATION: Ultrasound of the right breast.
--- NOTE | 2019-04-29 10:53 | USB ---
Reason for exam: additional evaluation requested from abnormal screening. History: Patient is postmenopausal, has history of high-risk lesion on a previous biopsy at age 66, and has history of breast cancer at age 53. Family history of breast cancer in sister at age 50, breast cancer in mother at age 60, and breast cancer in relative at age 30. High risk US breast localization RT of the right breast, April 29, 2017. Malignant stereotactic core biopsy of the left breast, February 09, 2004. Mastectomy of the left breast, 2003. Chemotherapy, 2003. Benign excisional biopsy of the right breast, January 28, 2001. Cancelled Procedure of the right breast, January 08, 2001. Core biopsy of the left breast. 2 excisional biopsies of the left breast. Mastectomy of the left breast. Chemotherapy. TRAM Reconstruction of the left breast. Took estrogen for 10 years beginning at age 38. Took tamoxifen for 5 years beginning at age 54. US Breast RT Right complete breast ultrasound includes all four quadrants, the retroareolar region and axilla. Finding demonstrates a 3 x 2 x 3mm oval, cystic lesion at 9 o'clock and a 3 x 4 x 3mm oval, solid lesion at 10 o'clock, shadowing, biopsy recommended. Assess on post biopsy mammogram for marker placement. No correlate for mammographic focal asymmetry, 6 month follow up mammogram recommended. These results were verbally communicated with the patient and result sheet given to the patient on 04/29/19. ASSESSMENT: Suspicious, BI-RAD 4 RECOMMENDATION: Surgical consultation, aspiration, and ultrasound core biopsy of the right breast. Called Dr. Sampson with mammographic findings and has scheduled an appointment for the patient for 06/02/19 at 9:[address] Ghotra. PRELIMINARY REPORT CALLED AND FAXED TO DR. GHOTRA ON 04/29/19.
== END | disposition home or self-care (01) ==
LOC: RADMAMWWP 08:17
PROVIDERS: ATTEND Family Medicine
DX: R92.8 Other abnormal and inconclusive findings on diagnostic imaging of breast (principal); Z85.3 Personal history of malignant neoplasm of breast
CPT/HCPCS: 77065; 76641; G0279; 77061

== ENCOUNTER → 2019-05-17 | Outpatient (CLI) | payer MEDICARE, BC ==
[2019-05-17 17:42] LABS: African American GFR (CKD) 54.5 (60.0-200.0); Anion Gap 10.1 mmol/L (4.00-12.00); BUN/Creat Ratio 18.33 Ratio (12.00-20.00); Calcium 9.6 mg/dL (8.7-10.3); Carbon Dioxide 23.9 mmol/L (21.6-31.8); Magnesium 1.9 mg/dL (1.5-2.4); Potassium 4.3 mmol/L (3.5-5.5)
== END | disposition home or self-care (01) ==
LOC: LABWHC1 10:47
PROVIDERS: ATTEND Nurse Practitioner Adult Health
DX: I10 Essential (primary) hypertension (principal)
CPT/HCPCS: 36415; 80048; 83735

== ENCOUNTER → 2019-06-03 | Outpatient (CLI) | payer MEDICARE, BC ==
[2019-06-03 13:09] LABS: Creatinine 24 Hour,Urine 1373.1 mg/24hr (800.0-1800.0)
[2019-06-03 18:04] LABS: Total Volume 24 Hour,Urine 1625 mL
[2019-06-03 18:26] LABS: Total Protein 24 Hour,Urine 118.6 mg/24Hr
== END | disposition home or self-care (01) ==
LOC: LABWHC1 10:11
PROVIDERS: ATTEND Family Medicine
DX: R94.4 Abnormal results of kidney function studies (principal)
CPT/HCPCS: 36415; 81050; 82575; 84156

== ENCOUNTER → 2019-06-10 | Outpatient (CLI) | payer MEDICARE, BC ==
--- NOTE | 2019-06-10 15:56 | US ---
EXAMINATION TYPE: US kidneys/renal and bladder DATE OF EXAM: 06/10/2019 COMPARISON: NONE CLINICAL HISTORY: R94.4 abnormal kidney function results. Abnormal kidney function, patient states no other symptoms. EXAM MEASUREMENTS: Right Kidney: 10.8 x 5.4 x 5.8 cm Left Kidney: 11.0 x 5.4 x 5.6 cm Right Kidney: no hydronephrosis or masses seen Left Kidney: no hydronephrosis or masses seen Bladder: wnl Bilateral Jets seen: left jet seen, right jet not seen There is no evidence for hydronephrosis at this point in time. No nephrolithiasis is seen. No hayden s are identified. Cortical thinning on the right is present. The urinary bladder is anechoic. Bilat eral ureteral jets are seen on images saved. IMPRESSION: No hydronephrosis is noted bilaterally.
== END | disposition home or self-care (01) ==
LOC: RADUSWWP 15:21
PROVIDERS: ATTEND Family Medicine
DX: R94.4 Abnormal results of kidney function studies (principal); Z88.4 Allergy status to anesthetic agent
CPT/HCPCS: 76770

== ENCOUNTER → 2019-07-29 | Outpatient (CLI) | payer MEDICARE, BC ==
--- NOTE | 2019-08-01 10:16 | USB ---
Reason for exam: additional evaluation requested from prior study. History: Patient is postmenopausal, has history of high-risk lesion on a previous biopsy at age 66, and has history of breast cancer at age 53. Family history of breast cancer in sister at age 50, breast cancer in mother at age 60, and breast cancer in relative at age 30. High risk US breast localization RT of the right breast, April 29, 2017. Malignant stereotactic core biopsy of the left breast, February 09, 2004. Mastectomy of the left breast, 2003. Chemotherapy, 2003. Benign excisional biopsy of the right breast, January 28, 2001. Cancelled Procedure of the right breast, January 08, 2001. Core biopsy of the left breast. 2 excisional biopsies of the left breast. Mastectomy of the left breast. Chemotherapy. TRAM Reconstruction of the left breast. Took estrogen for 10 years beginning at age 38. Took tamoxifen for 5 years beginning at age 54. Physical Findings: Nurse Summary: BB on right breast (nurse kp). US Breast RT Right complete breast ultrasound includes all four quadrants, the retroareolar region and axilla. Finding demonstrates a 3 x 4 x 4mm oval, hypoechoic lesion at 10 o'clock, prior 3 x 4 x 3mm, this appears solid with shadowing, remains suspicious and a 8 x 5 x 7mm oval, hypoechoic lymph node at 9 o'clock. These results were verbally communicated with the patient and result sheet given to the patient on 07/29/19. ASSESSMENT: Suspicious, BI-RAD 4 RECOMMENDATION: Ultrasound core biopsy of the right breast. (If patient cannot undergo biopsy give anesthetic allergy contrast enhanced mammography or MRI could be considered) PRELIMINARY REPORT CALLED AND FAXED TO DR. RUBIO ON 08/01/19.
== END | disposition home or self-care (01) ==
LOC: RADUSWWP 09:39
PROVIDERS: ATTEND Surgery
DX: R92.8 Other abnormal and inconclusive findings on diagnostic imaging of breast (principal)

== ENCOUNTER 2019-08-11 06:21 | Day surgery (SDC) | payer MEDICARE, BC ==
[2019-08-05 15:01] VITALS: BMI 38.0
[~2019-08-11 06:21] MED LIST changes: +DEXAMETHASONE SOD PHOSPHATE 10 MG/ML 1 ML VIAL IV ONE; +HEPARIN SODIUM,PORCINE 5,000 UNIT/ML 1 ML VIAL SQ ONE; +HYDROmorphone 0.5 MG/0.5 ML SYRINGE IVP PRN; +MIDAZOLAM 2 MG/2 ML VIAL IV PRN; -MOXIFLOXACIN HCL 0.5% DROPS 3 ML BTL OP ONE; +ONDANSETRON 4 MG/2 ML VIAL IVP ONE; +Pre Op ABX Message 1 EACH MISC MISCELLANE ONE; -TETRACAINE 0.5% OPHTH (PF) DROPS 4 ML BTL OP ONE; -TIMOLOL 0.5% OPHTH DROPS 5 ML BTL OP ONE
[2019-08-11] MEDS ORDERED: ALPRAZolam 0.25 MG TAB PO ONE (07:03)
--- NOTE | 2019-08-11 07:45 | P.GSHP ---
History of Present Illness H&P Date: 08/11/19 Chief Complaint: Abnormal right mammogram and ultrasound 69-year-old female known to our service. Patient with history of left breast cancer. Being followed for a suspicious lesion right breast. Recent right breast ultrasound shows a 3 x 4 x 4 mm hypoechoic lesion at 10:00. This is slightly larger than previous. Radiology is advising biopsy. Unfortunately the patient has anaphylaxis to all local anesthetics. Past Medical History Past Medical History: Atrial Fibrillation, Cancer, Deep Vein Thrombosis (DVT), Eye Disorder, Hyperlipidemia, Hypertension, Osteoarthritis (OA), Pulmonary Embolus (PE) Additional Past Medical History / Comment(s): hx of colon polyps, LT BREAST CA 2003.-please use paper tape only. BILAT CORNEAL/FUCHS DYSTROPHY, DO NOT USE LEFT ARM (LEFT MASTECTOMY), History of Any Multi-Drug Resistant Organisms: None Reported Past Surgical History: Breast Surgery, Heart Catheterization, Joint Replacement, Orthopedic Surgery Additional Past Surgical History / Comment(s): OOPHORECTOMY, lt knee rebuilt 1983, lt ankle, rt hip replaced 2002, lt breast cancer MASTECTOMY 2003, lt knee replaced 2006, right shoulder ROTATOR CUFF, mari cataract removal and cornea transplant-01/07/18 , colonoscopy, RT BREAST LUMPECTOMY Past Anesthesia/Blood Transfusion Reactions: Previous Problems w/ Anesthesia, Motion Sickness Additional Past Anesthesia/Blood Transfusion Reaction / Comment(s): trouble waking up in past after eye sx, and went into Afib Smoking Status: Former smoker - Past Family History Mother Brother(s) Family Medical History: Cancer, Deep Vein Thrombosis (DVT) Additional Family Medical History / Comment(s): mom breast, brother melanoma Sister(s) Daughter(s) Family Medical History: Cancer Additional Family Medical History / Comment(s): daughter cervical and uterine ca, sister breast Father Family Medical History: Cancer Additional Family Medical History / Comment(s): colon Brother(s) Family Medical History: Cancer Medications and Allergies Home Medications Medication Instructions Recorded Confirmed Type Atorvastatin [Lipitor] 10 mg PO DAILY 09/11/15 08/11/19 History Cholecalciferol [Vitamin D3 (25 3,000 unit PO DAILY 09/11/15 08/11/19 History Mcg = 1000 Iu)] Losartan [Cozaar] 50 mg PO QAM 09/11/15 08/11/19 History Metoprolol Succinate [Toprol XL] 25 mg PO QAM 11/27/15 08/11/19 History Rivaroxaban [Xarelto] 20 mg PO DAILY #30 tab 05/01/16 08/11/19 Rx Triamterene-Hctz 37.5-25Mg 1 cap PO DAILY 03/17/17 08/11/19 History [Dyazide 37.5-25 Capsule] prednisoLONE ACETATE 1% OPHTH 1 drops BOTH EYES Q7D 04/22/18 08/11/19 History [Pred Forte 1%] Flecainide Acetate 100 mg PO DAILY 08/05/19 08/11/19 History Allergies Allergy/AdvReac Type Severity Reaction Status Date / Time lidocaine Allergy Anaphylaxis Verified 08/11/19 06:50 adhesive tape AdvReac peels skin Verified 08/11/19 06:50 atropine AdvReac AFIB Verified 08/11/19 06:50 "CE" Allergy Anaphylaxis Uncoded 08/11/19 06:50 Surgical - Exam Vital Signs Temp Pulse Resp BP Pulse Ox 98.4 F 61 18 128/66 95 08/11/19 06:47 08/11/19 06:47 08/11/19 06:47 08/11/19 06:47 08/11/19 06:47 Physical exam: General: Well-developed, well-nourished HEENT: Normocephalic, sclerae nonicteric Abdomen: Nontender, nondistended Extremities: No edema Neuro: Alert and oriented Assessment and Plan (1) Abnormal mammogram of right breast Narrative/Plan: Will proceed with right breast wire localization biopsy using ultrasound guidance. Risks of bleeding, infection, pain, scarring, possible need for additional surgery reviewed. She understands and wishes to proceed. Current Visit: Yes Status: Acute Code(s): R92.8 - OTH ABN AND INCONCLUSIVE FINDINGS ON DX IMAGING OF BREAST SNOMED Code(s): 997098343
--- NOTE | 2019-08-11 08:26 | USB ---
EXAMINATION TYPE: US breast localization RT DATE OF EXAM: 08/11/2019 HISTORY: Breast mass PROCEDURE: Maximal barrier technique is utilized. The skin overlying a suitable path to the patient's indwelling mass in the approximately 10:00 position of the right breast was localized using ultrasound guidance. The skin was prepped and Lidocaine used for local anesthesia. A 20-gauge needle was advanced to the level of the mass using ultrasound guidance and a wire deployed. Needle was removed and hemostasis achieved. The patient remained in stable condition. Image obtained verified placement of the wire. IMPRESSION: Successful ultrasound-guided wire localization of this patient's breast mass. This procedure performed by the undersigned. Postprocedure mammogram pending. 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 Focal papillary low grade DCIS greater than 2 mm away from margin. See note. Recommendation Surgical consult of the right breast. Continued surgical/medical management. JULIANA
[2019-08-11] MEDS ORDERED: PROPOFOL 10 MG/ML 20 ML VIAL IV ONE (09:26)
[2019-08-11] MEDS ORDERED: fentaNYL (PF) 50 MCG/ML 2 ML AMP ONE (09:26)
[2019-08-11] MEDS ORDERED: MIDAZOLAM 2 MG/2 ML VIAL ONE (09:26)
[2019-08-11] MEDS ORDERED: ePHEDrine SULFATE/0.9% NACL/PF 50 MG/5 ML SYRINGE IV ONE (09:26)
[2019-08-11] MEDS ORDERED: NALOXONE 0.4 MG/ML 1 ML VIAL IV PRN (10:16)
--- NOTE | 2019-08-11 10:18 | P.OP ---
Date of Procedure: 08/11/19 Procedure(s) Performed: PREOPERATIVE DIAGNOSIS: Abnormal right mammogram POSTOPERATIVE DIAGNOSIS: Same PROCEDURE: Right Breast wire localization biopsy SURGEON: Brandin EBL: Minimal ANESTHESIA: Sedation plus local COMPLICATIONS: None OPERATIVE PROCEDURE: Patient was placed on the operating room table in the s upine position. The patient's breast was prepped and draped in usual sterile fashion. A curvilinear incision was made adjacent to the wire entrance site. I followed the wire down into the breast tissue. The breast tissue around the tip of the wire was fully excised using electrocautery. The specimen was sent for specimen radiogram. The abnormality was present within the specimen. The subcutaneous tissues were inspected. No bleeding was seen. The subcutaneous tissues were closed using 3-0 Vicryl sutures. The skin was closed using a running 4-0 Monocryl stitch. Skin glue was then applied. DISPOSITION: Stable to recovery room
[2019-08-11] MEDS ORDERED: LACTATED RINGERS 1,000 ML IV ONE (10:21)
[2019-08-11 10:32] VITALS: TEMP 97.8
--- NOTE | 2019-08-11 10:36 | USB ---
Ultrasound surgical specimen HISTORY: Status post wire localization and excision Ultrasound of the surgical specimen shows the mass to be present with the indwelling wire. Diagnostic mammogram was performed prior to the procedure for surgical planning purposes, 2 view digital mammogram was performed of the right breast showing the wire and mass in place in the upper outer right breast at the 10:00 position. 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 Focal papillary low grade DCIS greater than 2 mm away from margin. See note. Recommendation Surgical consult of the right breast. Continued surgical/medical management. MTDD
[2019-08-11 11:27] VITALS: RESP 16
[2019-08-11 11:29] VITALS: BP 140/85; PULSE 77
== END 2019-08-11 11:57 | disposition home or self-care (01) ==
LOC: OR 06:21
PROVIDERS: ATTEND Surgery
DX: C50.411 Malignant neoplasm of upper-outer quadrant of right female breast (principal); Z17.0 Estrogen receptor positive status [ER+]; I48.91 Unspecified atrial fibrillation; I10 Essential (primary) hypertension; E78.5 Hyperlipidemia, unspecified; M19.90 Unspecified osteoarthritis, unspecified site; H18.51 Endothelial corneal dystrophy; Z85.3 Personal history of malignant neoplasm of breast; Z96.652 Presence of left artificial knee joint; Z96.641 Presence of right artificial hip joint; Z98.890 Other specified postprocedural states; Z86.718 Personal history of other venous thrombosis and embolism; Z86.711 Personal history of pulmonary embolism; Z86.010 Personal history of colon polyps; Z87.891 Personal history of nicotine dependence; Z79.899 Other long term (current) drug therapy; Z80.3 Family history of malignant neoplasm of breast; Z79.01 Long term (current) use of anticoagulants; Z91.048 Other nonmedicinal substance allergy status; Z88.8 Allergy status to other drugs, medicaments and biological substances; Z88.4 Allergy status to anesthetic agent
CPT/HCPCS: 88342; 88307; 88341; 77065; 76999; 19285; 19301; J2250; J1644; J1100; J2405; J3010; J2704

== ENCOUNTER → 2019-09-30 | Day surgery (SDC) | payer MEDICARE, BC ==
[2019-09-28 11:06] VITALS: BMI 38.0
[~2019-09-30] MED LIST changes: +ALPRAZolam 0.25 MG TAB PO ONE; -DEXAMETHASONE SOD PHOSPHATE 10 MG/ML 1 ML VIAL IV ONE; +HYDROCORTISONE SUCCINATE 100 MG/2 ML VIAL IVP ONE; -HYDROmorphone 0.5 MG/0.5 ML SYRINGE IVP PRN; +LACTATED RINGERS 1,000 ML IV ONE; -LACTATED RINGERS 1,000 ML IV SCH; +LIDOCAINE 1% 20 ML VIAL (10MG/ML) FOR IV START INTRADERMA ONE; +METHYLENE BLUE 50 MG/10 ML AMPUL INJ ONE; -MIDAZOLAM 2 MG/2 ML VIAL IV PRN; +MIDAZOLAM 2 MG/2 ML VIAL ONE; +NALOXONE 0.4 MG/ML 1 ML VIAL IV PRN; -ONDANSETRON 4 MG/2 ML VIAL IVP ONE; +PROPOFOL 10 MG/ML 20 ML VIAL IV ONE; +SODIUM CHLORIDE 0.9% 100 ML with ceFAZolin 2,000 MG IV ONE; +ceFAZolin 1,000 MG VIAL IVPB ONE; +ceFAZolin 1,000 MG VIAL ONE; +diphenhydrAMINE 50 MG/ML 1 ML VIAL IVP ONE; +ePHEDrine SULFATE/0.9% NACL/PF 50 MG/5 ML SYRINGE IV ONE; +fentaNYL (PF) 50 MCG/ML 2 ML AMP ONE
--- NOTE | 2019-09-30 07:58 | P.GSHP ---
History of Present Illness H&P Date: 09/30/19 Chief Complaint: Right breast cancer Patient well-known to our service. Has history of previous left breast cancer in 2003. 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 Margins were negative. She is ER/AK positive, H ER-2/jarrod negative grade 2. Patient has a family history of breast cancer as well and her mother's sister and a niece. Recent repeat genetic testing with wider panel was negative. She did not have sentinel node biopsy of the time of her excisional biopsy that was being performed for diagnostic purposes. She would like to avoid mastectomy. Breast reconstruction was offered. Here today for sentinel lymph node biopsy right breast. Past Medical History Past Medical History: Atrial Fibrillation, Cancer, Deep Vein Thrombosis (DVT), Eye Disorder, Hyperlipidemia, Hypertension, Osteoarthritis (OA), Pulmonary Embolus (PE), Renal Disease Additional Past Medical History / Comment(s): hx of colon polyps, LT BREAST CA 2003.-please use paper tape only. 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 , colonoscopy, RT BREAST LUMPECTOMY Past Anesthesia/Blood Transfusion Reactions: Previous Problems w/ Anesthesia, Motion Sickness Additional Past Anesthesia/Blood Transfusion Reaction / Comment(s): trouble waking up in past after eye sx, and went into Afib Smoking Status: Former smoker - Past Family History Mother Brother(s) Family Medical History: Cancer, Deep Vein Thrombosis (DVT) Additional Family Medical History / Comment(s): mom breast, brother melanoma Sister(s) Daughter(s) Family Medical History: Cancer Additional Family Medical History / Comment(s): daughter cervical and uterine ca, sister breast Father Family Medical History: Cancer Additional Family Medical History / Comment(s): colon Brother(s) Family Medical History: Cancer Medications and Allergies Home Medications Medication Instructions Recorded Confirmed Type Atorvastatin [Lipitor] 10 mg PO DAILY 09/11/15 09/28/19 History Cholecalciferol [Vitamin D3 (25 3,000 unit PO DAILY 09/11/15 09/28/19 History Mcg = 1000 Iu)] Losartan [Cozaar] 50 mg PO QAM 09/11/15 09/28/19 History Metoprolol Succinate [Toprol XL] 25 mg PO QAM 11/27/15 09/28/19 History Rivaroxaban [Xarelto] 20 mg PO DAILY #30 tab 05/01/16 09/28/19 Rx Triamterene-Hctz 37.5-25Mg 1 cap PO DAILY 03/17/17 09/28/19 History [Dyazide 37.5-25 Capsule] prednisoLONE ACETATE 1% OPHTH 1 drops BOTH EYES Q7D 04/22/18 09/28/19 History [Pred Forte 1%] Flecainide Acetate 100 mg PO DAILY PRN 08/05/19 09/28/19 History Allergies Allergy/AdvReac Type Severity Reaction Status Date / Time lidocaine Allergy Anaphylaxis Verified 09/28/19 10:54 adhesive tape AdvReac peels skin Verified 09/28/19 10:54 atropine AdvReac AFIB Verified 09/28/19 10:54 "CE" Allergy Anaphylaxis Uncoded 09/28/19 10:54 Surgical - Exam Physical exam: General: Well-developed, well-nourished HEENT: Normocephalic, sclerae nonicteric Right breast: Recent scars noted, no adenopathy Left breast: Reconstructed breasts without abnormalities Abdomen: Nontender, nondistended Extremities: No edema Neuro: Alert and oriented Assessment and Plan (1) Breast cancer, right Narrative/Plan: Will proceed with sentinel node biopsy right breast. Possible need for axillary barrera dissection reviewed. Risks of bleeding, infection, scarring, numbness, nerve injury, seroma formation, lymphedema, potential need for additional surgery reviewed. She understands and wishes to proceed. Status: Acute Code(s): C50.911 - MALIGNANT NEOPLASM OF UNSP SITE OF RIGHT FEMALE BREAST SNOMED Code(s): 758625607
--- NOTE | 2019-09-30 11:01 | NM ---
EXAMINATION TYPE: NM sentinel node injection DATE OF EXAM: 09/30/2019 COMPARISON: Right breast surgical specimen dated 10/12/2018 HISTORY: Right breast cancer with request for sentinel node injection. TECHNIQUE AND FINDINGS: The procedure of sentinel lymph node injection was explained to the patient. The benefits, alternatives, and risks were discussed. An informed consent was then obtained. Prepr ocedural timeout was performed. Overlying skin is cleaned with sterile alcohol. Following this, 528 uCi Tc99m Tilmanocept was inject ed in the upper outer aspect of the right nipple intradermally. The patient tolerated the procedure well without any immediate complication. The patient was kept in the radiology department for short stay after the procedure and then taken to surgery for surgical p rocedure what is presumed intraoperative gamma probe will be used for sentinel lymph node detection. IMPRESSION: Right breast radiotracer injection for sentinel node localization as above.
[2019-09-30 13:09] VITALS: TEMP 98.2
--- NOTE | 2019-09-30 13:10 | P.OP ---
Date of Procedure: 09/30/19 Procedure(s) Performed: REOPERATIVE DIAGNOSIS: Right breast cancer POSTOPERATIVE DIAGNOSIS: Same PROCEDURE: Right sentinel lymph node biopsy SURGEON: Brandin EBL: Minimal ANESTHESIA: General COMPLICATIONS: None OPERATIVE PROCEDURE: Patient was placed on the operating room table in the supine position. 2 mL of methylene blue was injected into the subareolar space. The breast was then massaged for 5 minutes. The breast was prepped and draped in usual sterile fashion. The right axilla was addressed at that time. The hot spot in the right axilla was identified. A small curvilinear incision was made using the scalpel. Dissection down through the subcutaneous tissues took place using electrocautery. Using the neoprobe I identified a total of 2 sentinel nodes. Both were slightly blue in color. One had a slightly indurated appearance and for that reason I sent both nodes for frozen section evaluation. Thankfully both nodes were described as negative by pathology. No additional blue or radioactive nodes were identified in the axilla at that time. The area was irrigated. No bleeding was seen. The subcutaneous tissues were closed using 3-0 Vicryl sutures. The skin was closed using a running 4-0 Monocryl stitch. Skin glue and sterile dressings were then applied. DISPOSITION: Stable to recovery room
[2019-09-30 13:39] VITALS: RESP 17
[2019-09-30 13:53] VITALS: BP 121/80; PULSE 79
== END ==
LOC: OR 09:53
PROVIDERS: ATTEND Surgery
DX: C50.911 Malignant neoplasm of unspecified site of right female breast (principal); I48.91 Unspecified atrial fibrillation; E78.5 Hyperlipidemia, unspecified; I12.9 Hypertensive chronic kidney disease with stage 1 through stage 4 chronic kidney disease, or unspecified chronic kidney disease; N18.3 Chronic kidney disease, stage 3 (moderate); M19.90 Unspecified osteoarthritis, unspecified site; Z79.01 Long term (current) use of anticoagulants; Z79.899 Other long term (current) drug therapy; Z90.12 Acquired absence of left breast and nipple; Z86.718 Personal history of other venous thrombosis and embolism; Z86.010 Personal history of colon polyps; Z86.711 Personal history of pulmonary embolism; Z87.891 Personal history of nicotine dependence; Z96.652 Presence of left artificial knee joint; Z96.662 Presence of left artificial ankle joint; Z96.641 Presence of right artificial hip joint; Z88.4 Allergy status to anesthetic agent; Z88.8 Allergy status to other drugs, medicaments and biological substances; Z91.048 Other nonmedicinal substance allergy status; Z85.3 Personal history of malignant neoplasm of breast; Z80.3 Family history of malignant neoplasm of breast; Z80.8 Family history of malignant neoplasm of other organs or systems; Z80.49 Family history of malignant neoplasm of other genital organs; Z80.0 Family history of malignant neoplasm of digestive organs
CPT/HCPCS: 88342; 88331; 88307; 88341; 38792; 38525; A9520; J2250; J1200; J1644; J1720; J0690; J3010; J2704; Q9968

== ENCOUNTER → 2020-01-02 | Outpatient (CLI) | payer MEDICARE, BC ==
[2020-01-02 10:05] LABS: Anisocytosis Slight; HCT 39.8 % (34.0-46.0); HGB 13.2 gm/dL (11.4-16.0); MCH 32.4 pg (25.0-35.0); MCHC 33.3 g/dL (31.0-37.0); MCV 97.3 fL (80.0-100.0); Macrocytosis Slight; Mean Platelet Volume 8.2; Platelet Count 153 k/uL (150-450); RBC 4.08 m/uL (3.80-5.40); RDW 17.7 % (11.5-15.5); WBC 5.6 k/uL (3.8-10.6)
[2020-01-02 10:11] LABS: Appearance,Urine Clear (Clear); Bilirubin,Urine Negative (Negative); Blood,Urine Negative (Negative); Color,Urine Yellow; Glucose,Urine (UA) Negative (Negative); Ketones,Urine Negative (Negative); Leukocyte Esterase,Urine Negative (Negative); Nitrite,Urine Negative (Negative); PH, Urine 6.5 (5.0-8.0); Protein,Urine Negative (Negative); Specific Gravity,Urine 1.013 (1.001-1.035); Urobilinogen,Urine <2.0 mg/dL (<2.0)
[2020-01-02 10:37] LABS: Protein/Creatinine Ratio,Urine 0.115
[2020-01-02 16:34] LABS: % Iron Saturation 34.75 (12.00-45.00); African American GFR (CKD) 60.2 (60.0-200.0); Albumin 4.3 g/dL (3.80-4.90); Albumin/Globulin Ratio 1.72 (1.60-3.17); Anion Gap 13.8 mmol/L (4.00-12.00); BUN/Creat Ratio 19.09 Ratio (12.00-20.00); Calcium 9.6 mg/dL (8.7-10.3); Carbon Dioxide 24.2 mmol/L (21.6-31.8); Globulin 2.5 g/dL (1.6-3.3); Non-African American GFR(CKD) 51.9 (60.0-200.0); Phosphorus 3.8 mg/dL (2.4-5.1); Potassium 5.1 mmol/L (3.5-5.5); Total Bilirubin 0.9 mg/dL (0.3-1.2); Total Protein 6.8 g/dL (6.2-8.2)
[2020-01-02 16:53] LABS: Urine Creatinine 69.5 mg/dL
[2020-01-02 17:31] LABS: Ferritin 342.1 ng/mL (10.0-291.0)
== END | disposition home or self-care (01) ==
LOC: LABWHC1 08:26
PROVIDERS: ATTEND Internal Medicine
DX: N18.3 Chronic kidney disease, stage 3 (moderate) (principal)
CPT/HCPCS: 36415; 80053; 81003; 82043; 82306; 82570; 82728; 83540; 83550; 83970; 84100; 84156; 85027

== ENCOUNTER → 2020-03-26 | Outpatient (CLI) | payer MEDICARE, BC ==
--- NOTE | 2020-03-27 10:57 | MM ---
Reason for exam: follow-up at short interval from prior study. Last mammogram was performed 7 months ago. History: Patient is postmenopausal, has history of breast cancer at age 69, and has history of high-risk lesion on a previous biopsy at age 66. Family history of breast cancer in sister at age 50, breast cancer in mother at age 60, and breast cancer in relative at age 30. Malignant US breast surgical specimen RT of the right breast, August 11, 2019. Malignant US breast localization RT of the right breast, August 11, 2019. High risk US breast localization RT of the right breast, April 29, 2017. Malignant stereotactic core biopsy of the left breast, February 09, 2004. Mastectomy of the left breast, 2003. Chemotherapy, 2003. Benign excisional biopsy of the right breast, January 28, 2001. Cancelled Procedure of the right breast, January 08, 2001. Core biopsy of the left breast. 2 excisional biopsies of the left breast. Mastectomy of the left breast. Chemotherapy. TRAM Reconstruction of the left breast. Took estrogen for 10 years beginning at age 38. Took tamoxifen for 5 years beginning at age 54. Physical Findings: Nurse did not find any significant physical abnormalities on exam. MG 3D Diag Mammo W/Cad RT CC and MLO view(s) were taken of the right breast. Prior study comparison: April 29, 2019, right breast MG 3d diag mammo w/cad RT. The breast tissue is heterogeneously dense. This may lower the sensitivity of mammography. Finding: There are typically benign vascular, round calcifications in the right breast. There is no discrete abnormality. Increased skin thickening corresponds to interval radiation treatment. These results were verbally communicated with the patient and result sheet given to the patient on 03/26/20. ASSESSMENT: Benign, BI-RAD 2 RECOMMENDATION: Follow-up diagnostic mammogram of the right breast in 1 year.
== END | disposition home or self-care (01) ==
LOC: RADMAMWWP 12:57
PROVIDERS: ATTEND Surgery
DX: Z08 Encounter for follow-up examination after completed treatment for malignant neoplasm (principal); Z85.3 Personal history of malignant neoplasm of breast
CPT/HCPCS: 77065; G0279; 77061

== ENCOUNTER → 2020-05-07 | Outpatient (CLI) | payer MEDICARE, BC ==
[2020-05-07 13:02] LABS: Anisocytosis Slight; HCT 35.4 % (34.0-46.0); HGB 11.6 gm/dL (11.4-16.0); MCH 32.1 pg (25.0-35.0); MCHC 32.8 g/dL (31.0-37.0); MCV 97.8 fL (80.0-100.0); Macrocytosis Slight; Mean Platelet Volume 7.5; Platelet Count 254 k/uL (150-450); RBC 3.62 m/uL (3.80-5.40); RDW 18.5 % (11.5-15.5); WBC 5.1 k/uL (3.8-10.6)
[2020-05-07 16:23] LABS: Appearance,Urine Cloudy (Clear); Bilirubin,Urine Negative (Negative); Blood,Urine Negative (Negative); Color,Urine Yellow; Glucose,Urine (UA) Negative (Negative); Hyaline Casts,Urine 1 /lpf (0-2); Ketones,Urine Negative (Negative); Leukocyte Esterase,Urine Small (Negative); Mucus,Urine Few /hpf; Nitrite,Urine Negative (Negative); PH, Urine 5.5 (5.0-8.0); Protein,Urine Trace (Negative); RBC,Urine <1 /hpf (0-5); Specific Gravity,Urine 1.015 (1.001-1.035); Squamous Epithelial Cell,Urine 3 /hpf (0-4); Urobilinogen,Urine <2.0 mg/dL (<2.0); WBC,Urine 5 /hpf (0-5)
[2020-05-07 19:59] LABS: % Iron Saturation 29.84 (12.00-45.00); African American GFR (CKD) 35.5 (60.0-200.0); Albumin 4.1 g/dL (3.80-4.90); Albumin/Globulin Ratio 1.86 (1.60-3.17); Anion Gap 8.7 mmol/L (4.00-12.00); BUN/Creat Ratio 17.65 Ratio (12.00-20.00); Calcium 8.9 mg/dL (8.7-10.3); Carbon Dioxide 27.3 mmol/L (21.6-31.8); Globulin 2.2 g/dL (1.6-3.3); Non-African American GFR(CKD) 30.7 (60.0-200.0); Phosphorus 3.5 mg/dL (2.4-5.1); Potassium 4.4 mmol/L (3.5-5.5); Total Bilirubin 0.9 mg/dL (0.3-1.2); Total Protein 6.3 g/dL (6.2-8.2)
[2020-05-07 20:29] LABS: Ferritin 422.1 ng/mL (10.0-291.0)
[2020-05-08 00:42] LABS: Urine Creatinine 242.1 mg/dL
== END | disposition home or self-care (01) ==
LOC: LABWHC1 11:51
PROVIDERS: ATTEND Nurse Practitioner Family
DX: E55.9 Vitamin D deficiency, unspecified (principal); D63.1 Anemia in chronic kidney disease; N18.3 Chronic kidney disease, stage 3 (moderate); N39.0 Urinary tract infection, site not specified; N25.81 Secondary hyperparathyroidism of renal origin; R80.9 Proteinuria, unspecified
CPT/HCPCS: 36415; 80053; 81001; 82043; 82306; 82570; 82728; 83540; 83550; 83970; 84100; 85027

== ENCOUNTER → 2020-05-28 | Outpatient (CLI) | payer MEDICARE, BC ==
[2020-05-28 13:26] LABS: Appearance,Urine Clear (Clear); Bilirubin,Urine Negative (Negative); Blood,Urine Negative (Negative); Color,Urine Yellow; Glucose,Urine (UA) Negative (Negative); Ketones,Urine Negative (Negative); Leukocyte Esterase,Urine Negative (Negative); Nitrite,Urine Negative (Negative); Protein,Urine Negative (Negative); Urobilinogen,Urine <2.0 mg/dL (<2.0)
[2020-05-28 13:33] LABS: Anisocytosis Slight; Basophils % (A) 0 %; Eosinophils # (A) 0.1 k/uL (0-0.7); Eosinophils % (A) 1 %; HGB 11.9 gm/dL (11.4-16.0); Lymphocytes # (A) 1.2 k/uL (1.0-4.8); Lymphocytes % (A) 23 %; MCH 32.2 pg (25.0-35.0); MCHC 32.9 g/dL (31.0-37.0); MCV 97.7 fL (80.0-100.0); Macrocytosis Slight; Mean Platelet Volume 7.6; Monocytes # (A) 0.3 k/uL (0-1.0); Monocytes % (A) 5 %; Neutrophils # (A) 3.7 k/uL (1.3-7.7); Neutrophils % (A) 68 %; Platelet Count 240 k/uL (150-450); RBC 3.69 m/uL (3.80-5.40); RDW 19.1 % (11.5-15.5); WBC 5.4 k/uL (3.8-10.6)
[2020-05-28 23:00] LABS: African American GFR (CKD) 67.5 (60.0-200.0); Albumin/Globulin Ratio 1.67 (1.60-3.17); Anion Gap 10.8 mmol/L (4.00-12.00); Calcium 8.9 mg/dL (8.7-10.3); Carbon Dioxide 23.2 mmol/L (21.6-31.8); Globulin 2.4 g/dL (1.6-3.3); Non-African American GFR(CKD) 58.2 (60.0-200.0); Total Bilirubin 0.8 mg/dL (0.2-1.2); Total Protein 6.4 g/dL (6.2-8.2)
== END | disposition home or self-care (01) ==
LOC: LABWHC1 12:01
PROVIDERS: ATTEND Nurse Practitioner Family
DX: N39.0 Urinary tract infection, site not specified (principal); E55.9 Vitamin D deficiency, unspecified; N18.3 Chronic kidney disease, stage 3 (moderate); D63.1 Anemia in chronic kidney disease
CPT/HCPCS: 36415; 80053; 81003; 82306; 85025

== ENCOUNTER → 2020-08-29 | Outpatient (CLI) | payer MEDICARE, BC ==
[2020-08-29 10:04] LABS: Anisocytosis Slight; HCT 36.1 % (34.0-46.0); HGB 12.5 gm/dL (11.4-16.0); MCH 32.6 pg (25.0-35.0); MCHC 34.5 g/dL (31.0-37.0); MCV 94.3 fL (80.0-100.0); Platelet Count 216 k/uL (150-450); RBC 3.83 m/uL (3.80-5.40); RDW 19.8 % (11.5-15.5); WBC 6.1 k/uL (3.8-10.6)
[2020-08-29 10:06] LABS: Appearance,Urine Clear (Clear); Bilirubin,Urine Negative (Negative); Blood,Urine Negative (Negative); Color,Urine Yellow; Glucose,Urine (UA) Negative (Negative); Ketones,Urine Negative (Negative); Leukocyte Esterase,Urine Negative (Negative); Nitrite,Urine Negative (Negative); Protein,Urine Negative (Negative); Specific Gravity,Urine 1.018 (1.001-1.035); Urobilinogen,Urine <2.0 mg/dL (<2.0)
[2020-08-29 15:59] LABS: African American GFR (CKD) 59.7 (60.0-200.0); Albumin 4.3 g/dL (3.80-4.90); Albumin/Globulin Ratio 1.87 (1.60-3.17); BUN/Creat Ratio 20.91 Ratio (12.00-20.00); Calcium 9.4 mg/dL (8.7-10.3); Globulin 2.3 g/dL (1.6-3.3); Non-African American GFR(CKD) 51.5 (60.0-200.0); Potassium 4.2 mmol/L (3.5-5.5); Total Bilirubin 0.9 mg/dL (0.3-1.2); Total Protein 6.6 g/dL (6.2-8.2)
== END | disposition home or self-care (01) ==
LOC: LABWHC1 09:22
PROVIDERS: ATTEND Nurse Practitioner Family
DX: E55.9 Vitamin D deficiency, unspecified (principal); N39.0 Urinary tract infection, site not specified; N18.30 Chronic kidney disease, stage 3 unspecified; D63.1 Anemia in chronic kidney disease
CPT/HCPCS: 36415; 80053; 81003; 82306; 85027

== ENCOUNTER → 2021-02-01 | Outpatient (CLI) | payer MEDICARE, BC ==
[2021-02-01 13:23] LABS: Appearance,Urine Clear (Clear); Bilirubin,Urine Negative (Negative); Blood,Urine Negative (Negative); Color,Urine Light Yellow; Glucose,Urine (UA) Negative (Negative); Ketones,Urine Negative (Negative); Leukocyte Esterase,Urine Negative (Negative); Nitrite,Urine Negative (Negative); PH, Urine 6.5 (5.0-8.0); Protein,Urine Negative (Negative); Specific Gravity,Urine 1.009 (1.001-1.035); Urobilinogen,Urine <2.0 mg/dL (<2.0)
[2021-02-01 14:07] LABS: Creatinine,Urine Random 69.5 mg/dL; Protein/Creatinine Ratio,Urine 0.158
[2021-02-01 18:31] LABS: Basophils # (A) 0.01 X 10*3/uL (0.00-0.10); Basophils % (A) 0.2 %; Eosinophils # (A) 0.04 X 10*3/uL (0.04-0.35); Eosinophils % (A) 0.9 %; HCT 34.9 % (37.2-46.3); HGB 11.8 g/dL (12.0-15.0); Lymphocytes # (A) 1.13 X 10*3/uL (0.90-5.00); Lymphocytes % (A) 24.5 %; MCH 32.2 pg (27.0-32.0); MCHC 33.8 g/dL (32.0-37.0); MCV 95.1 fL (80.0-97.0); Mean Platelet Volume 10.3 fL (9.5-12.2); Monocytes # (A) 0.37 X 10*3/uL (0.20-1.00); Neutrophils # (A) 3.04 X 10*3/uL (1.80-7.70); Neutrophils % (A) 65.8 %; Platelet Count 240 X 10*3/uL (140-440); RBC 3.67 X 10*6/uL (4.10-5.20); RDW 19.3 % (11.5-14.5); WBC 4.62 X 10*3/uL (4.50-10.00)
[2021-02-01 23:12] LABS: African American GFR (CKD) 59.7 (60.0-200.0); Albumin 4.3 g/dL (3.80-4.90); Albumin/Globulin Ratio 1.54 (1.60-3.17); Anion Gap 7.6 mmol/L (4.00-12.00); BUN/Creat Ratio 20.91 Ratio (12.00-20.00); Calcium 9.3 mg/dL (8.7-10.3); Carbon Dioxide 24.4 mmol/L (21.6-31.8); Globulin 2.8 g/dL (1.6-3.3); Non-African American GFR(CKD) 51.5 (60.0-200.0); Phosphorus 3.2 mg/dL (2.4-5.1); Potassium 3.6 mmol/L (3.5-5.5); Total Protein 7.1 g/dL (6.2-8.2)
== END | disposition home or self-care (01) ==
LOC: LABWHC1 12:30
PROVIDERS: ATTEND Internal Medicine
DX: N18.30 Chronic kidney disease, stage 3 unspecified (principal); N39.0 Urinary tract infection, site not specified; N25.81 Secondary hyperparathyroidism of renal origin; E55.9 Vitamin D deficiency, unspecified; D64.9 Anemia, unspecified; R80.9 Proteinuria, unspecified
CPT/HCPCS: 36415; 80053; 81003; 82306; 82570; 83970; 84100; 84156; 85025

== ENCOUNTER → 2021-03-27 | Outpatient (CLI) | payer MEDICARE, BC ==
--- NOTE | 2021-03-27 12:09 | MM ---
Reason for exam: additional evaluation requested from prior study. Last mammogram was performed 1 year ago. History: Patient is postmenopausal, has history of breast cancer at age 69, and has history of high-risk lesion on a previous biopsy at age 66. Family history of breast cancer in sister at age 50, breast cancer in mother at age 60, and breast cancer in relative at age 30. Malignant US breast surgical specimen RT of the right breast, August 11, 2019. Malignant US breast localization RT of the right breast, August 11, 2019. High risk US breast localization RT of the right breast, April 29, 2017. Malignant stereotactic core biopsy of the left breast, February 09, 2004. Mastectomy of the left breast, 2003. Chemotherapy, 2003. Benign excisional biopsy of the right breast, January 28, 2001. Cancelled Procedure of the right breast, January 08, 2001. Core biopsy of the left breast. 2 excisional biopsies of the left breast. Mastectomy of the left breast. Chemotherapy. TRAM Reconstruction of the left breast. Took estrogen for 10 years beginning at age 38. Took tamoxifen for 5 years beginning at age 54. Physical Findings: Nurse did not find any significant physical abnormalities on exam. MG 3D Diag Mammo W/Cad RT CC, MLO, and XCCL view(s) were taken of the right breast. Prior study comparison: March 26, 2020, right breast MG 3d diag mammo w/cad RT. August 11, 2019, right breast MG diagnostic mammo RT wo CAD. The breast tissue is heterogeneously dense. This may lower the sensitivity of mammography. No significant new findings when compared with previous films. These results were verbally communicated with the patient and result sheet given to the patient on 03/27/21. ASSESSMENT: Benign, BI-RAD 2 RECOMMENDATION: Follow-up diagnostic mammogram of the right breast in 1 year.
== END | disposition home or self-care (01) ==
LOC: RADMAMWWP 10:44
PROVIDERS: ATTEND Surgery
DX: R92.2 Inconclusive mammogram (principal); Z78.0 Asymptomatic menopausal state; Z85.3 Personal history of malignant neoplasm of breast; Z80.3 Family history of malignant neoplasm of breast
CPT/HCPCS: 77065; G0279; 77061

== ENCOUNTER → 2021-05-24 | Outpatient (CLI) | payer MEDICARE, BC ==
[2021-05-24 18:24] LABS: Creatinine,Urine Random 183.8 mg/dL
[2021-05-24 18:51] LABS: Protein/Creatinine Ratio,Urine 0.027
[2021-05-24 22:20] LABS: % Iron Saturation 27.15 (12.00-45.00); Magnesium 2.1 mg/dL (1.5-2.4)
== END | disposition home or self-care (01) ==
LOC: LABWHC1 12:41
PROVIDERS: ATTEND Internal Medicine
DX: E55.9 Vitamin D deficiency, unspecified (principal); D63.1 Anemia in chronic kidney disease; N18.30 Chronic kidney disease, stage 3 unspecified; N25.81 Secondary hyperparathyroidism of renal origin; N39.0 Urinary tract infection, site not specified; R80.9 Proteinuria, unspecified
CPT/HCPCS: 36415; 82306; 82570; 82728; 83540; 83550; 83735; 83970; 84100; 84156

== ENCOUNTER → 2021-05-24 | Outpatient (CLI) | payer MEDICARE, BC ==
[2021-05-24 13:40] LABS: Anisocytosis Slight; HCT 36.4 % (34.0-46.0); HGB 12.3 gm/dL (11.4-16.0); MCH 31.5 pg (25.0-35.0); MCHC 33.7 g/dL (31.0-37.0); MCV 93.6 fL (80.0-100.0); Mean Platelet Volume 8.1; Platelet Count 266 k/uL (150-450); Poikilocytosis Slight; RBC 3.89 m/uL (3.80-5.40); RDW 19.8 % (11.5-15.5); WBC 6.5 k/uL (3.8-10.6)
[2021-05-24 13:52] LABS: Albumin 4.3 g/dL (3.5-5.0); Calcium 9.5 mg/dL (8.4-10.2); Potassium 3.8 mmol/L (3.5-5.1); Total Protein 7.2 g/dL (6.3-8.2)
[2021-05-24 13:54] LABS: INR 1.3 (<1.2); Partial Thromboplastin Time 34.3 sec (22.0-30.0); Prothrombin Time 13.7 sec (9.0-12.0)
[2021-05-24 14:24] LABS: Appearance,Urine Clear (Clear); Bilirubin,Urine Negative (Negative); Blood,Urine Negative (Negative); Color,Urine Yellow; Glucose,Urine (UA) Negative (Negative); Ketones,Urine Negative (Negative); Leukocyte Esterase,Urine Small (Negative); Mucus,Urine Rare /hpf; Nitrite,Urine Negative (Negative); PH, Urine 5.5 (5.0-8.0); Protein,Urine Trace (Negative); Specific Gravity,Urine 1.018 (1.001-1.035); Squamous Epithelial Cell,Urine 2 /hpf (0-4); Urobilinogen,Urine <2.0 mg/dL (<2.0); WBC,Urine 5 /hpf (0-5)
== END | disposition home or self-care (01) ==
LOC: LABWHC1 12:32
PROVIDERS: ATTEND Orthopaedic Surgery
DX: Z01.812 Encounter for preprocedural laboratory examination (principal); I10 Essential (primary) hypertension; R35.0 Frequency of micturition; Z79.01 Long term (current) use of anticoagulants
CPT/HCPCS: 80053; 81001; 85027; 85610; 85730; 87070

== ENCOUNTER 2021-06-04 05:38 | Day surgery (SDC) | payer MEDICARE, BC ==
[2021-05-31 12:32] VITALS: BMI 36.6
[~2021-06-04 05:38] MED LIST changes: +ACETAMINOPHEN TAB 500 MG TAB PO PRN; -ALPRAZolam 0.25 MG TAB PO ONE; +GABAPENTIN 300 MG CAP PO PRN; -HEPARIN SODIUM,PORCINE 5,000 UNIT/ML 1 ML VIAL SQ ONE; -HYDROCORTISONE SUCCINATE 100 MG/2 ML VIAL IVP ONE; -LACTATED RINGERS 1,000 ML IV ONE; +LACTATED RINGERS 1,000 ML IV SCH; -LIDOCAINE 1% 20 ML VIAL (10MG/ML) FOR IV START INTRADERMA ONE; +MELOXICAM 7.5 MG TAB PO PRN; -METHYLENE BLUE 50 MG/10 ML AMPUL INJ ONE; -MIDAZOLAM 2 MG/2 ML VIAL ONE; -NALOXONE 0.4 MG/ML 1 ML VIAL IV PRN; +ONDANSETRON 4 MG/2 ML VIAL IVP ONE; -PROPOFOL 10 MG/ML 20 ML VIAL IV ONE; -Pre Op ABX Message 1 EACH MISC MISCELLANE ONE; -SODIUM CHLORIDE 0.9% 100 ML with ceFAZolin 2,000 MG IV ONE; +TRANEXAMIC ACID 1,000 MG in SODIUM CHLORIDE 0.9% 100 ML IVPB PRN; -ceFAZolin 1,000 MG VIAL IVPB ONE; -ceFAZolin 1,000 MG VIAL ONE; -diphenhydrAMINE 50 MG/ML 1 ML VIAL IVP ONE; -ePHEDrine SULFATE/0.9% NACL/PF 50 MG/5 ML SYRINGE IV ONE; -fentaNYL (PF) 50 MCG/ML 2 ML AMP ONE
[2021-06-04] MEDS ORDERED: DEXAMETHASONE SOD PHOSPHATE 4 MG/ML 1 ML VIAL IVP ONE (06:34)
[2021-06-04] MEDS ORDERED: diphenhydrAMINE 50 MG/ML 1 ML VIAL ONE ×2 (06:40→08:47)
[2021-06-04] MEDS ORDERED: fentaNYL (PF) 50 MCG/ML 2 ML AMP ONE (06:50)
[2021-06-04] MEDS ORDERED: SODIUM CHLORIDE 0.9% IRRIG 1,000 ML BTL IRRIGATION ONE (06:50)
[2021-06-04] MEDS ORDERED: HEPARIN SODIUM,PORCINE 10,000 UNIT/ML 1 ML VIAL ONE (06:50)
[2021-06-04] MEDS ORDERED: ePHEDrine SULFATE/0.9% NACL/PF 50 MG/5 ML SYRINGE IV ONE (06:50)
[2021-06-04] MEDS ORDERED: SUCCINYLCHOLINE CHLORIDE VIAL 200 MG/10 ML VIAL IV ONE (06:50)
[2021-06-04] MEDS ORDERED: NEOSTIGMINE 1 MG/ML 10 ML VIAL ONE (06:50)
[2021-06-04] MEDS ORDERED: MIDAZOLAM 2 MG/2 ML VIAL ONE (06:50)
[2021-06-04] MEDS ORDERED: ROCURONIUM 10 MG/ML (5 ML VIAL) IV ONE (06:50)
[2021-06-04] MEDS ORDERED: TRANEXAMIC ACID 1,000 MG/10 ML VIAL ONE (06:50)
[2021-06-04] MEDS ORDERED: SODIUM CHLORIDE 0.9% 100 ML BAG ONE (06:50)
[2021-06-04] MEDS ORDERED: PROPOFOL 10 MG/ML 20 ML VIAL IV ONE (06:50)
[2021-06-04] MEDS ORDERED: GLYCOPYRROLATE 0.2 MG/ML 2 ML VIAL ONE (06:50)
[2021-06-04] MEDS ORDERED: ceFAZolin 1,000 MG in SODIUM CHLORIDE 0.9% 1,000 ML IRRIGATION ONE (06:56)
--- NOTE | 2021-06-04 08:06 | P.OP ---
Date of Procedure: 06/04/21 Preoperative Diagnosis: Severe osteoarthritis left hip Postoperative Diagnosis: Severe osteoarthritis left hip Procedure(s) Performed: Left total hip arthroplasty with a direct anterior approach Implants: [employer] Polarstem standard size 6 [employer] R3, 3 hole hemispherical acetabular shell, 52 mm [employer] Reflection 6.5 mm cancellus screw, 25 mm 2 [employer] R3, XLPE 20 acetabular liner [employer] Oxinium femoral head 36 m, +0 All components were press-fit. The articulation is Oxinium on polyethylene. Anesthesia: GETA Surgeon: Nito Boston Spare Hand #1: Nikole Aparicio Estimated Blood Loss (ml): 100 Pathology: other (Femoral head) Condition: stable Disposition: PACU Indications for Procedure: After failure of conservative treatment we discussed the surgical and nonsurgical treatment options at length. Patient wishes to proceed with a total hip arthroplasty with a direct anterior approach. Complications specific to this procedure were discussed at length, including but not limited to infection, leg length discrepancy, dislocation, nerve injury, and fracture. Covid-19 was also discussed at length with the patient, and they are aware of the current policies and procedures. The patient was given the option of delaying surgery, but they elect to proceed knowing these risks. Patient is aware of all these complications and informed consent was obtained Operative Findings: The operative findings are consistent with severe osteoarthritis of the left hip Description of Procedure: Patient was seen and evaluated in the preoperative area and the consent was reviewed. The operative site was marked with a skin marker. The patient was then brought to the operating room and given preoperative antibiotics intr avenously. 1 g of Tranexamic acid was also given intravenously. A general anesthetic was administered by the anesthesia department. The patient was then placed on the Thor table with the bony prominences well-padded. The hip area was then prepped and draped in the usual sterile fashion. A universal timeout was then performed, which confirmed the patient's name, surgical site, ALLERGIES, and procedure being performed on the consent. Next the incision site was located at 1 cm distal and 2 cm lateral to the anterior superior iliac spine. The skin and subcutaneous tissues were sharply incised. Incision was carefully dissected down to the fascia overlying the tensor fascia darinel muscle. This fascia was then incised in line with the incision. Care was taken to stay laterally in order to avoid injuring the lateral femoral cutaneous nerve. Next, using blunt finger dissection, the tensor fascia darinel muscle was dissected off its investing fascia. The muscle was then carefully retracted laterally with a cobra retractor over the lateral neck of the femur. Next, the circumflex vessels were identified and cauterized using the AquaMantis device. The anterior hip capsule was then exposed. The capsule was then opened and an inverted T fashion. Cobra retractors were then placed intracapsularly. The retractors were maintained intracapsular throughout the procedure. The proximal femur was then visualized. A small amount of traction was placed on the leg. The femoral neck was then osteotomized appropriate level above the lesser trochanter. A small wedge of bone was then removed from the remaining femoral head. Next, using a corkscrew the femoral head was removed from the acetabulum. On gross visual inspection, the femoral head had complete loss of articular cartilage and multiple periarticular osteophytes. The femoral head was then measured. Attention was then turned to the acetabulum. The acetabulum was exposed and any remaining labrum was excised. Sequential reaming of the acetabulum was performed using fluoroscopic guidance until there was a good bed of bleeding cancellus bone. When the appropriate size was reached, a trial was then placed. The position and fit of the trial was checked with fluoroscopy. The trial was then removed. Then, using fluoroscopic guidance, the final implant was impacted at 20 of anteversion and 40 of abduction, and fully seated in the acetabulum. 2 screws were then placed in the acetabulum. Again fluoroscopy was used to check position of the screws. Next, the liner was then impacted, with a 20 elevated liner located in the anterior superior quadrant. Component locking was confirmed. Attention was then directed to the femur. With the aid of the Thor table, the femur was externally rotated to approximately 130, extended, and adducted under the opposite leg. A side hook was then placed under the proximal femur, and the side hook elevator was used to elevate the proximal femur while releasing the capsule. Retractors were then placed. A capsular release was performed, as well as a release of the conjoined tendon, which afforded excellent visualization of the proximal femur. Next, a box osteotome was used to lateralize the proximal femur. A back hand was then used to locate the femoral canal. Sequential broaching was then performed with appropriate size which afforded excellent fixation in the proximal femur. A trial was then placed with appropriate head and neck, and the hip was gently reduced with the aid of the Thor table. Fluoroscopy was then used to check position of the compo nents, as well as to ensure equal leg lengths. The hip was then gently dislocated and the trials were then removed. Final implants were then impacted and the hip was again reduced. Final fluoroscopic x-rays confirmed that the components were in anatomic position, as well as equal leg lengths. The hip was also taken through range of motion, and found to be stable. The hip was then copiously irrigated with antibiotic solution with pulsatile lavage. A second dose of 1 g of Tranexamic acid was also given intravenously. Any blood collected by [employer] was then returned to the patient at this time. The fascia was then closed with 2-0 strata fix suture. The subcutaneous tissue was closed with 3-0 Vicryl. The subcuticular tissue was closed with 3-0 strata fix suture. The skin was then closed with Exofin skin glue. After the glue and dried, and Optifoam silver impregnated dressing was applied. The patient was then transferred to the recovery room in stable condition. The medical support assistant DILIA Osuna was required due to the complexity of surgery, and the need for skilled assembler surgical garment for positioning, draping, exposure, retraction, and closure of the wound.
[2021-06-04 08:46] VITALS: TEMP 97
[2021-06-04] MEDS ORDERED: KETOROLAC 15 MG/ML 1 ML VIAL IVP ONE (08:46)
[2021-06-04] MEDS: HYDROmorphone 0.5 MG/0.5 ML SYRINGE IVP PRN ×2 (08:47→09:12)
[2021-06-04] MEDS ORDERED: KETOROLAC 15 MG/ML 1 ML VIAL ONE (08:48)
[2021-06-04] MEDS ORDERED: diphenhydrAMINE 50 MG/ML 1 ML VIAL IVP ONE ×2 (08:50)
[2021-06-04] MEDS ORDERED: HYDROmorphone 0.5 MG/0.5 ML SYRINGE IVP PRN ×2 (08:51)
[2021-06-04] MEDS ORDERED: NALOXONE 0.4 MG/ML 1 ML VIAL IV PRN (08:51)
[2021-06-04] MEDS ORDERED: ONDANSETRON 4 MG/2 ML VIAL IVP PRN (08:51)
[2021-06-04] MEDS ORDERED: MAGNESIUM HYDROXIDE 2,400 MG/10 ML CUP PO PRN (08:51)
[2021-06-04] MEDS ORDERED: HYDROmorphone 0.2 MG/1 ML SYRINGE IVP PRN (08:51)
[2021-06-04] MEDS ORDERED: traMADol 50 MG TAB PO PRN ×2 (08:54)
[2021-06-04] MEDS ORDERED: SODIUM CHLORIDE 0.9% 1,000 ML IV SCH (09:00)
--- NOTE | 2021-06-04 09:05 | XR ---
EXAMINATION TYPE: XR Hip Limited LT DATE OF EXAM: 06/04/2021 Comparison: None Clinical History: 70-year-old female post surgery Findings: Image shows placement of left hip total arthroplasty. Both acetabular cup and femoral stem components of the prosthesis appear well seated without periprosthetic fracture. Alignment grossly anatomic. So me soft tissue air related to recent operation. Impression: Uncomplicated postoperative appearance left total hip arthroplasty.
--- NOTE | 2021-06-04 09:06 | XR ---
EXAMINATION TYPE: XR Hip Limited LT, FL guidance operating room DATE OF EXAM: 06/04/2021 Comparison: None Clinical History: 70-year-old female Lt Hip-Ant Findings: Intraoperative fluoroscopy during placement of left hip total arthroplasty. There are some surgical c lips in the left side of the pelvis. A previous right hip total arthroplasty is present. FLUOROSCOPY Fluoroscopy time of 33 seconds was used during left hip replacement. 2 image/s document/s the proced ure. Impression: Intraoperative fluoroscopy as above.
[2021-06-04] MEDS ORDERED: LACTATED RINGERS 1,000 ML IV ONE (09:14)
[2021-06-04] MEDS ORDERED: fentaNYL (PF) 50 MCG/ML 2 ML AMP IVP ONE (09:44)
[2021-06-04 13:13] VITALS: BP 96/61; PULSE 82; RESP 14
[2021-06-04] MEDS ORDERED: SENNOSIDES-DOCUSATE SODIUM 1 EACH TAB PO SCH (21:00)
== END 2021-06-04 13:48 | disposition home health service (06) ==
LOC: OR 05:38
PROVIDERS: ATTEND Orthopaedic Surgery
DX: M16.12 Unilateral primary osteoarthritis, left hip (principal); I48.91 Unspecified atrial fibrillation; I10 Essential (primary) hypertension; E78.5 Hyperlipidemia, unspecified; Z86.711 Personal history of pulmonary embolism; Z86.718 Personal history of other venous thrombosis and embolism; Z85.3 Personal history of malignant neoplasm of breast; Z86.010 Personal history of colon polyps
CPT/HCPCS: 27130; 97110; 97161; 86891; 88305; 88311; 73501; C1776; J2250; J0330; J1200; J1644; J1100; J2710; J0690 ×2; J2405; J3010; J1885; J2704; J1170; 86850; 86900; 86901

== ENCOUNTER → 2021-12-03 | Outpatient (CLI) | payer MEDICARE, BC ==
[2021-12-03 11:49] LABS: Appearance,Urine Clear (Clear); Bilirubin,Urine Negative (Negative); Blood,Urine Negative (Negative); Color,Urine Yellow; Glucose,Urine (UA) Negative (Negative); Ketones,Urine Negative (Negative); Leukocyte Esterase,Urine Negative (Negative); Nitrite,Urine Negative (Negative); PH, Urine 6.5 (5.0-8.0); Protein,Urine Negative (Negative); Specific Gravity,Urine 1.014 (1.001-1.035); Urobilinogen,Urine <2.0 mg/dL (<2.0)
[2021-12-03 19:20] LABS: Basophils # (A) 0.04 X 10*3/uL (0.00-0.10); Basophils % (A) 0.7 %; Eosinophils # (A) 0.07 X 10*3/uL (0.04-0.35); Eosinophils % (A) 1.3 %; HCT 36.2 % (37.2-46.3); HGB 11.8 g/dL (12.0-15.0); Immature Grans, Automated 0.5 %; Lymphocytes # (A) 1.64 X 10*3/uL (0.90-5.00); Lymphocytes % (A) 29.7 %; MCH 31.1 pg (27.0-32.0); MCHC 32.6 g/dL (32.0-37.0); MCV 95.5 fL (80.0-97.0); Mean Platelet Volume 11.3 fL (9.5-12.2); Monocytes # (A) 0.33 X 10*3/uL (0.20-1.00); NRBC Per 100 WBC 0 /100 WBCS (0.0-0.0); Neutrophils # (A) 3.41 X 10*3/uL (1.80-7.70); Neutrophils % (A) 61.8 %; Platelet Count 260 X 10*3/uL (140-440); RBC 3.79 X 10*6/uL (4.10-5.20); RDW 20.4 % (11.5-14.5); WBC 5.52 X 10*3/uL (4.50-10.00)
[2021-12-03 20:29] LABS: % Iron Saturation 27.53 (12.00-45.00); African American GFR (CKD) 66.6 (60.0-200.0); Albumin 4.2 g/dL (3.8-4.9); Albumin/Globulin Ratio 1.62 (1.60-3.17); Anion Gap 9.7 mmol/L (10.00-18.00); BUN/Creat Ratio 16.1 Ratio (12.00-20.00); Blood Urea Nitrogen 16.1 mg/dL (9.0-27.0); Calcium 9.2 mg/dL (8.7-10.3); Carbon Dioxide 22.3 mmol/L (20.0-27.5); Globulin 2.6 g/dL (1.6-3.3); Non-African American GFR(CKD) 57.4 (60.0-200.0); Potassium 4.3 mmol/L (3.5-5.5); Total Bilirubin 0.8 mg/dL (0.30-1.20); Total Protein 6.8 g/dL (6.2-8.2)
== END | disposition home or self-care (01) ==
LOC: LABWHC1 10:03
PROVIDERS: ATTEND Nurse Practitioner Family
DX: N18.30 Chronic kidney disease, stage 3 unspecified (principal); D64.9 Anemia, unspecified; N39.0 Urinary tract infection, site not specified; E55.9 Vitamin D deficiency, unspecified; R80.9 Proteinuria, unspecified
CPT/HCPCS: 36415; 80053; 81003; 82306; 82570; 82728; 83540; 83550; 84156; 85025

== ENCOUNTER → 2022-05-06 | Outpatient (CLI) | payer MEDICARE, BC ==
--- NOTE | 2022-05-06 15:07 | MM ---
Reason for Exam: Hx of breast cancer, mastectomy. Last mammogram was performed 1 year(s) and 1 month(s) ago. Patient History: Menarche at age 13. First Full-Term at age 18. Left ovary removed at age 38. Postmenopausal. Breast cancer, right, age 69. Breast cancer, left, age 53. Estrogen for 10 years from age 38 until age 48. Tamoxifen for 5 years from age 54 until age 59. 2003, Malignant Mastectomy on the left side. Core Biopsy on the Left side. Mastectomy on the Left side. Excisional Biopsy on the Left side. Excisional Biopsy on the Left side. 08/11/2019, Malignant Core Biopsy on the right side. 08/11/2019, Malignant Core Biopsy on the right side. 04/29/2017, High risk Core Biopsy on the right side. 01/28/2001, Benign Excisional Biopsy on the right side. 02/09/2004, Malignant Stereotactic Core Biopsy on the left side. 2003, Chemotherapy. TRAM Reconstruction, left. Chemotherapy. 01/08/2001, Cancelled Procedure on the right side. Niece had breast cancer, age 30. Sister had breast cancer, age 50. Mother had breast cancer, age 60. Prior Study Comparison: 08/11/2019 Right Diagnostic Mammogram, [facility]. 03/26/2020 Right Diagnostic Mammogram, [facility]. 03/27/2021 Right Diagnostic Mammogram, [facility]. Tissue Density: Right: There are scattered fibroglandular densities. Findings: Analyzed By CAD. New suspicious masses calcifications or distortions. Postsurgical changes to the right breast. Overall Assessment: Benign, BI-RAD 2 Management: Screening Mammogram of the right breast in 1 year. A clinical breast exam by your physician is recommended on an annual basis and results should be correlated with mammographic findings. This exam should not preclude additional follow-up of suspicious palpable abnormalities. Results were given to the patient verbally at the time of exam. Electronically signed and approved by: Dwayne Oliva DO
== END | disposition home or self-care (01) ==
LOC: RADMAMWWP 14:11
PROVIDERS: ATTEND Family Medicine
DX: R92.8 Other abnormal and inconclusive findings on diagnostic imaging of breast (principal); Z78.0 Asymptomatic menopausal state; Z80.3 Family history of malignant neoplasm of breast
CPT/HCPCS: 77065; G0279; 77061

== ENCOUNTER → 2022-06-02 | Outpatient (CLI) | payer MEDICARE, BC ==
[2022-06-02 14:36] LABS: Basophils # (A) 0.03 X 10*3/uL (0.00-0.10); Basophils % (A) 0.7 %; Eosinophils # (A) 0.04 X 10*3/uL (0.04-0.35); Eosinophils % (A) 0.9 %; HCT 36.1 % (37.2-46.3); Immature Grans, Automated 0.2 %; Lymphocytes # (A) 1.29 X 10*3/uL (0.90-5.00); MCH 30.8 pg (27.0-32.0); MCHC 33.2 g/dL (32.0-37.0); MCV 92.6 fL (80.0-97.0); Mean Platelet Volume 10.8 fL (9.5-12.2); Monocytes # (A) 0.31 X 10*3/uL (0.20-1.00); NRBC Per 100 WBC 0 /100 WBCS (0.0-0.0); Neutrophils # (A) 2.77 X 10*3/uL (1.80-7.70); Neutrophils % (A) 62.2 %; Platelet Count 219 X 10*3/uL (140-440); RDW 20.4 % (11.5-14.5); WBC 4.45 X 10*3/uL (4.50-10.00)
[2022-06-02 14:38] LABS: Appearance,Urine Clear (Clear); Bilirubin,Urine Negative (Negative); Blood,Urine Negative (Negative); Color,Urine Yellow (Yellow); Ketones,Urine Negative (Negative); Nitrite,Urine Negative (Negative); Specific Gravity,Urine 1.014 (1.001-1.030); Urobilinogen,Urine 0.2 (0.2,1.0)
[2022-06-02 14:40] LABS: % Iron Saturation 42.92 (12.00-45.00); Anion Gap 10.5 mmol/L (10.00-18.00); BUN/Creat Ratio 16.88 Ratio (12.00-20.00); Blood Urea Nitrogen 18.4 mg/dL (9.0-27.0); Calcium 8.9 mg/dL (8.7-10.3); Carbon Dioxide 22.3 mmol/L (20.0-27.5); Magnesium 2.1 mg/dL (1.5-2.4); Non-African American GFR(CKD) 51.8 (60.0-200.0); Phosphorus 3.2 mg/dL (2.4-5.1); Potassium 4.4 mmol/L (3.5-5.5); Uric Acid 6.9 mg/dL (2.9-7.7)
[2022-06-02 15:02] LABS: Albumin 4.3 g/dL (3.8-4.9)
[2022-06-02 23:03] LABS: Urine Creatinine 79.2 mg/dL (28.0-217.0)
== END | disposition home or self-care (01) ==
LOC: LABWHC1 09:59
PROVIDERS: ATTEND Internal Medicine
DX: E55.9 Vitamin D deficiency, unspecified (principal); D63.1 Anemia in chronic kidney disease; N18.31 Chronic kidney disease, stage 3a; N25.81 Secondary hyperparathyroidism of renal origin; M10.9 Gout, unspecified; N39.0 Urinary tract infection, site not specified; R80.9 Proteinuria, unspecified
CPT/HCPCS: 36415; 80048; 81003; 82040; 82043; 82306; 82570; 82728; 83540; 83550; 83735; 83970; 84100; 84550; 85025

== ENCOUNTER 2022-10-26 11:29 | Emergency (ER) | payer MEDICARE, BC ==
[2022-10-26 11:41] VITALS: RESP 18; TEMP 98.1
--- NOTE | 2022-10-26 12:08 | ED ---
General Adult HPI - General Chief complaint: Recheck/Abnormal Lab/Rx Stated complaint: post op pacemaker placement Time Seen by Provider: 10/26/22 12:00 Source: patient, RN notes reviewed, old records reviewed Mode of arrival: ambulatory Limitations: no limitations - History of Present Illness Initial comments: This is a 72-year-old female who presents emergency Department complaining that she had a pacemaker placed on October 17 and Thursday she saw her doctor they removed the bandage and over the last couple of days she's had some drainage and she is worried that it's infected. Patient also states on Thursday after they removed the bandage she broke out in a rash on her arms and she eventually took Benadryl multiple times and then the rash is gone away since. Patient states the last time she took Benadryl was at 3 AM. Patient denies any shortness of breath patient denies any chest pain. Patient denies any fever chills. - Related Data Home Medications Medication Instructions Recorded Confirmed Atorvastatin [Lipitor] 10 mg PO DAILY 09/11/15 10/17/22 Cholecalciferol [Vitamin D3 (25 1,000 unit PO DAILY 09/11/15 10/17/22 Mcg = 1000 Iu)] Losartan [Cozaar] 50 mg PO QAM 09/11/15 10/17/22 Metoprolol Succinate [Toprol XL] 25 mg PO QAM 11/27/15 10/17/22 Triamterene-Hctz 37.5-25Mg 1 cap PO Q48H 03/17/17 10/17/22 [Dyazide 37.5-25 Capsule] Previous Rx's Medication Instructions Recorded Rivaroxaban [Xarelto] 20 mg PO DAILY #30 tab 05/01/16 Allergies Allergy/AdvReac Type Severity Reaction Status Date / Time lidocaine Allergy Anaphylaxis Verified 10/26/22 11:42 adhesive tape AdvReac peels skin Verified 10/26/22 11:42 atropine AdvReac affected Verified 10/26/22 11:42 a-fib chlorhexidine AdvReac Itching Verified 10/26/22 11:42 "CE" Allergy Anaphylaxis Uncoded 10/26/22 11:42 Review of Systems ROS Statement: Those systems with pertinent positive or pertinent negative responses have been documented in the HPI. ROS Other: All systems not noted in ROS Statement are negative. Past Medical History Past Medical History: Atrial Fibrillation, Cancer, Deep Vein Thrombosis (DVT), Eye Disorder, Hyperlipidemia, Hypertension, Osteoarthritis (OA), Pulmonary Embolus (PE), Renal Disease Additional Past Medical History / Comment(s): POST LEFT MASTECTOMY WENT INTO SEPTIC SHOCK (ICU FOR 10 DAYS)hx of colon polyps, LT BREAST CA 2003.-please use paper tape only. 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 Past Anesthesia/Blood Transfusion Reactions: Previous Problems w/ Anesthesia Additional Past Anesthesia/Blood Transfusion Reaction / Comment(s): trouble waking up in past after eye sx, and went into Afib Type of Cardiac Device: Permanent Pacemaker Device Placement Date:: 10/17/22 Past Psychological History: No Psychological Hx Reported Smoking Status: Former smoker Past Alcohol Use History: Rare Past Drug Use History: None Reported - Past Family History Mother Brother(s) Family Medical History: Cancer, Deep Vein Thrombosis (DVT) Additional Family Medical History / Comment(s): mom breast, brother melanoma Sister(s) Daughter(s) Family Medical History: Cancer Additional Family Medical History / Comment(s): daughter cervical and uterine ca, sister breast Father Family Medical History: Cancer Additional Family Medical History / Comment(s): colon Brother(s) Family Medical History: Cancer General Exam - General Exam Comments Initial Comments: GENERAL: Patient is well-developed and well-nourished. Patient is nontoxic and well-hy drated and is in no acute distress. ENT: Neck is soft and supple. No significant lymphadenopathy is noted. Oropharynx is clear. Moist mucous membranes. Neck has full range of motion without elici ting any pain. EYES: The sclera were anicteric and conjunctiva were pink and moist. Extraocular movements were intact and pupils were equal round and reactive to light. Eyelids were unremarkable. PULMONARY: Unlabored respirations. Good breath sounds bilaterally. No audible rales rhonchi or wheezing was noted. CARDIOVASCULAR: There is a regular rate and rhythm without any murmurs gallops or rubs. Patient is a site is draining a little bit of fluid and it looks like serosanguineous fluid ABDOMEN: Soft and nontender with normal bowel sounds. SKIN: Skin is clear with no lesions or rashes and otherwise unremarkable. NEUROLOGIC: Patient is alert and oriented x3. Cranial nerves II through XII are grossly intact. Motor and sensory are also intact. Normal speech, volume and content. Symmetrical smile. MUSCULOSKELETAL: Normal extremities with adequate strength and full range of motion. No lower extremity swelling or edema. No calf tenderness. LYMPHATICS: No significant lymphadenopathy is noted PSYCHIATRIC: Normal psychiatric evaluation. Limitations: no limitations Course Vital Signs 10/26/22 11:37 Temperature 98.1 F Pulse Rate 70 Respiratory 18 Rate Blood Pressure 108/75 O2 Sat by Pulse 97 Oximetry Medical Decision Making - Medical Decision Making Was pt. sent in by a medical professional or institution (, PA, REMOTE ADVISOR, urgent care, hospital, or usp...) When possible be specific @ -Dr. Sutton wanted the patient to come in to be evaluated Did you speak to anyone other than the patient for history (EMS, parent, family, police, friend...)? What history was obtained from this source @ -No Did you review nursing and triage notes (agree or disagree)? Why? @ -I reviewed and agree with nursing and triage notes Were old charts reviewed (outside hosp., previous admission, EMS record, old EKG, old radiological studies, urgent care reports/EKG's, usp records)? Report findings @ -No old charts were reviewed Differential Diagnosis (chest pain, altered mental status, abdominal pain women, abdominal pain men, vaginal bleeding, weakness, fever, dyspnea, syncope, headache, dizziness, GI bleed, back pain, seizure, CVA, palpatations, mental health, musculoskeletal)? @ -Cellulitis, hematoma, seroma, abscess EKG interpreted by me (3pts min.). @ -As above X-rays interpreted by me (1pt min.). @ -None done CT interpreted by me (1pt min.). @ -None done U/S interpreted by me (1pt. min.). @ -None done What testing was considered but not performed or refused? (CT, X-rays, U/S, labs)? Why? @ -None What meds were considered but not given or refused? Why? @ -None Did you discuss the management of the patient with other professionals (professionals i.e. Dr., PA, REMOTE ADVISOR, lab, RT, psych nurse, dialysis social worker, aircraft technician, teacher, worldwide chief creative officer, hospice case manager)? Give summary @ -No Was smoking cessation discussed for >3mins.? @ -No Was critical care preformed (if so, how long)? @ -No Were there social determinants of health that impacted care today? How? (Homele ssness, low income, unemployed, alcoholism, drug addiction, transportation, low edu. Level, literacy, decrease access to med. care, skilled nursing, rehab)? @ -No Was there de-escalation of care discussed even if they declined (Discuss DNR or withdrawal of care, Hospice)? DNR status @ -No What co-morbidities impacted this encounter? (DM, HTN, Smoking, COPD, CAD, Cancer, CVA, ARF, Chemo, Hep., AIDS, mental health diagnosis, sleep apnea, morbid obesity)? @ -None Was patient admitted / discharged? Hospital course, mention meds given and route, prescriptions, significant lab abnormalities, going to OR and other pertinent info. @ -Evaluated the patient she did have a little bit of clear drainage consistent with his a seroma. Lab work was done that showed no signs of infection. I spoke with Dr. Sutton he was in agreement to have the patient follow-up with their offices no patient without any antibiotics at this time. Undiagnosed new problem with uncertain prognosis? @ -No Drug Therapy requiring intensive monitoring for toxicity (Heparin, Nitro, Insulin, Cardizem)? @ -No Were any procedures done? @ -No Diagnosis/symptom? @ -Seroma at pacemaker site Acute, or Chronic, or Acute on Chronic? @ -Acute Uncomplicated (without systemic symptoms) or Complicated (systemic symptoms)? @ -Uncomplicated Side effects of treatment? @ -No Exacerbation, Progression, or Severe Exacerbation? @ -No Poses a threat to life or bodily function? How? (Chest pain, [place], [place], pneumonia, PE, COPD, DKA, ARF, appy, cholecystitis, CVA, Diverticulitis, Homicidal, Suic idal, threat to staff... and all critical care pts) @ -No - Lab Data Result diagrams: 10/26/22 12:00 10/26/22 12:00 Lab Results 10/26/22 10/26/22 Range/Units 12:00 12:00 WBC 5.6 (3.8-10.6) k/uL RBC 3.97 (3.80-5.40) m/uL Hgb 12.3 (11.4-16.0) gm/dL Hct 35.4 (34.0-46.0) % MCV 89.3 (80.0-100.0) fL MCH 31.0 (25.0-35.0) pg MCHC 34.7 (31.0-37.0) g/dL RDW 20.8 H (11.5-15.5) % Plt Count 256 (150-450) k/uL MPV 8.4 Neutrophils % 66 % Lymphocytes % 23 % Monocytes % 6 % Eosinophils % 1 % Basophils % 1 % Neutrophils # 3.7 (1.3-7.7) k/uL Lymphocytes # 1.3 (1.0-4.8) k/uL Monocytes # 0.4 (0-1.0) k/uL Eosinophils # 0.1 (0-0.7) k/uL Basophils # 0.1 (0-0.2) k/uL Poikilocytosis Slight Anisocytosis Moderate Microcytosis Slight Sodium 140 (137-145) mmol/L Potassium 4.3 (3.5-5.1) mmol/L Chloride 105 (98-107) mmol/L Carbon Dioxide 26 (22-30) mmol/L Anion Gap 9 mmol/L BUN 16 (7-17) mg/dL Creatinine 1.06 H (0.52-1.04) mg/dL Est GFR (CKD-EPI)AfAm 62 (>60 ml/min/1.73 sqM) Est GFR (CKD-EPI)NonAf 54 (>60 ml/min/1.73 sqM) Glucose 92 (74-99) mg/dL Calcium 8.7 (8.4-10.2) mg/dL Total Bilirubin 1.0 (0.2-1.3) mg/dL AST 26 (14-36) U/L ALT 28 (4-34) U/L Alkaline Phosphatase 60 (38-126) U/L Total Protein 7.3 (6.3-8.2) g/dL Albumin 4.2 (3.5-5.0) g/dL Disposition Clinical Impression: Seroma Disposition: HOME SELF-CARE Condition: Good Instructions (If sedation given, give patient instructions): Seroma (DC) Additional Instructions: Patient should follow up with cardiology. Is patient prescribed a controlled substance at d/c from ED?: No Referrals: Perry Sampson MD [Primary Care Provider] - 1-2 days Time of Disposition: 13:03
[2022-10-26 12:31] LABS: Anisocytosis Moderate; Basophils # (A) 0.1 k/uL (0-0.2); Basophils % (A) 1 %; Eosinophils # (A) 0.1 k/uL (0-0.7); Eosinophils % (A) 1 %; HCT 35.4 % (34.0-46.0); HGB 12.3 gm/dL (11.4-16.0); Lymphocytes # (A) 1.3 k/uL (1.0-4.8); Lymphocytes % (A) 23 %; MCHC 34.7 g/dL (31.0-37.0); MCV 89.3 fL (80.0-100.0); Mean Platelet Volume 8.4; Microcytosis Slight; Monocytes # (A) 0.4 k/uL (0-1.0); Monocytes % (A) 6 %; Neutrophils # (A) 3.7 k/uL (1.3-7.7); Neutrophils % (A) 66 %; Platelet Count 256 k/uL (150-450); Poikilocytosis Slight; RBC 3.97 m/uL (3.80-5.40); RDW 20.8 % (11.5-15.5); WBC 5.6 k/uL (3.8-10.6)
--- NOTE | 2022-10-26 12:44 | XR ---
EXAMINATION TYPE: XR chest 2V DATE OF EXAM: 10/26/2022 12:30 PM COMPARISON: Chest radiographs from 10/18/2022 TECHNIQUE: XR chest 2V Frontal and lateral views of the chest. CLINICAL INDICATION:Female, 72 years old with history of Difficulty breathing ; FINDINGS: Lungs/Pleura: There is flattening of the diaphragm with increased lucency of the lungs. No evidence o f pneumothorax, pleural effusion or focal consolidation. Pulmonary vascularity: Unremarkable. Heart/mediastinum: Cardiomediastinal silhouette is unremarkable. Two lead cardiac conduction device o verlying the left hemithorax with lead tips projecting over the right ventricle and right atrium. Musculoskeletal: No acute osseous pathology. IMPRESSION: 1. No acute cardiopulmonary disease process. 2. COPD changes.
[2022-10-26 12:51] LABS: Albumin 4.2 g/dL (3.5-5.0); Calcium 8.7 mg/dL (8.4-10.2); Potassium 4.3 mmol/L (3.5-5.1); Total Protein 7.3 g/dL (6.3-8.2)
[2022-10-26 13:48] VITALS: BP 119/67; PULSE 58
== END 2022-10-26 13:44 | disposition home or self-care (01) ==
LOC: EC 11:29
DX: I97.622 Postprocedural seroma of a circulatory system organ or structure following other procedure (principal); Y83.8 Other surgical procedures as the cause of abnormal reaction of the patient, or of later complication, without mention of misadventure at the time of the procedure; Y71.3 Surgical instruments, materials and cardiovascular devices (including sutures) associated with adverse incidents; E78.5 Hyperlipidemia, unspecified; I12.9 Hypertensive chronic kidney disease with stage 1 through stage 4 chronic kidney disease, or unspecified chronic kidney disease; N18.32 Chronic kidney disease, stage 3b; Z95.5 Presence of coronary angioplasty implant and graft; Z88.4 Allergy status to anesthetic agent; Z88.5 Allergy status to narcotic agent; Z88.8 Allergy status to other drugs, medicaments and biological substances; Z79.899 Other long term (current) drug therapy; Z90.722 Acquired absence of ovaries, bilateral; Z87.891 Personal history of nicotine dependence; Z96.641 Presence of right artificial hip joint
CPT/HCPCS: 36415; 71046; 80053; 85025; 87040; 99283

== ENCOUNTER 2022-11-20 11:48 | Observation (INO) | payer MEDICARE, BC ==
--- NOTE | 2022-11-20 12:27 | ED ---
General Adult HPI - General Chief complaint: Syncope Stated complaint: Syncope Time Seen by Provider: 11/20/22 11:53 Source: patient, family, RN notes reviewed, old records reviewed Limitations: no limitations - History of Present Illness Initial comments: This is a pleasant nontoxic appearing 72-year-old female that presents to the emergency room with family member complaining of 2 syncopal episodes this morning. Patient states at 7 AM she went to let the dog out and while standing at the door became lightheaded and needed to sit down. She states that she went to let the dog back in needed to go to the bathroom and as she walked into the bathroom she became lightheaded and passed out onto the floor. Patient denies any chest pain. Does report an episode of epigastric heaviness a couple nights ago after dinner that lasted all night. She states that she has been feeling short of breath also with insatiable thirst. She reports her blood pressure medications were changed by Dr. Silveira last Thursday from losartan 25 mg to 100 mg. Does have a history of A. fib, DVT, hypertension, PE, chronic kidney disease and pacemaker placed in October of this year. Does take Xarelto. -: hour(s) (5) Severity scale (1-10): 0 Associated Symptoms: shortness of breath, syncope Treatments Prior to Arrival: none - Related Data Home Medications Medication Instructions Recorded Confirmed Atorvastatin [Lipitor] 10 mg PO DAILY 09/11/15 11/20/22 Triamterene-Hctz 37.5-25Mg 1 cap PO Q48H 03/17/17 11/20/22 [Dyazide 37.5-25 Capsule] Cholecalciferol [Vitamin D3 (25 25 mcg PO DAILY 11/20/22 11/20/22 Mcg = 1000 Iu)] Losartan Potassium 100 mg PO DAILY 11/20/22 11/20/22 Metoprolol Succinate [Toprol XL] 50 mg PO DAILY 11/20/22 11/20/22 Previous Rx's Medication Instructions Recorded Rivaroxaban [Xarelto] 20 mg PO DAILY #30 tab 05/01/16 Allergies Allergy/AdvReac Type Severity Reaction Status Date / Time lidocaine Allergy Anaphylaxis Verified 11/20/22 13:23 adhesive tape AdvReac peels skin Verified 11/20/22 13:23 atropine AdvReac affected Verified 11/20/22 13:23 a-fib chlorhexidine AdvReac Itching Verified 11/20/22 13:23 "EC" Allergy Anaphylaxis Uncoded 11/20/22 11:58 Review of Systems ROS Statement: Those systems with pertinent positive or pertinent negative responses have been documented in the HPI. ROS Other: All systems not noted in ROS Statement are negative. Past Medical History Past Medical History: Atrial Fibrillation, Cancer, Deep Vein Thrombosis (DVT), Eye Disorder, Hyperlipidemia, Hypertension, Osteoarthritis (OA), Pulmonary Embolus (PE), Renal Disease Additional Past Medical History / Comment(s): POST LEFT MASTECTOMY WENT INTO SEPTIC SHOCK (ICU FOR 10 DAYS)hx of colon polyps, LT BREAST CA 2003.-please use paper tape only. 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 Past Anesthesia/Blood Transfusion Reactions: Previous Problems w/ Anesthesia Additional Past Anesthesia/Blood Transfusion Reaction / Comment(s): trouble waking up in past after eye sx, and went into Afib Type of Cardiac Device: Permanent Pacemaker Device Placement Date:: 10/17/22 Past Psychological History: No Psychological Hx Reported Smoking Status: Former smoker Past Alcohol Use History: Rare Past Drug Use History: None Reported - Past Family History Mother Brother(s) Family Medical History: Cancer, Deep Vein Thrombosis (DVT) Additional Family Medical History / Comment(s): mom breast, brother melanoma Sister(s) Daughter(s) Family Medical History: Cancer Additional Family Medical History / Comment(s): daughter cervical and uterine ca, sister breast Father Family Medical History: Cancer Additional Family Medical History / Comment(s): colon Brother(s) Family Medical History: Cancer General Exam Limitations: no limitations General appearance: alert, in no apparent distress Head exam: Present: atraumatic, normocephalic Eye exam: Absent: scleral icterus, conjunctival injection, periorbital swelling ENT exam: Present: normal oropharynx, mucous membranes moist Neck exam: Present: full ROM. Absent: tenderness, meningismus Respiratory exam: Present: normal lung sounds bilaterally. Absent: respiratory distress, accessory muscle use Cardiovascular Exam: Present: regular rate GI/Abdominal exam: Present: soft. Absent: distended, tenderness, guarding, rebound, rigid Extremities exam: Present: normal inspection, normal capillary refill. Absent: tenderness Back exam: Absent: tenderness, CVA tenderness (R), CVA tenderness (L), rash noted Neurological exam: Present: alert, oriented X3 Psychiatric exam: Present: normal affect, normal mood Skin exam: Present: warm, dry, normal color. Absent: cyanosis, diaphoretic, petechiae, pallor Course Vital Signs 11/20/22 11/20/22 11:51 13:40 Temperature 97.5 F L Pulse Rate 65 Respiratory 18 Rate Blood Pressure 101/66 Blood Pressure 115/73 [Sitting] Blood Pressure 98/70 [Standing] Blood Pressure 104/59 [Supine] O2 Sat by Pulse 99 Oximetry EKG Findings - EKG Results: EKG: sinus rhythm (EKG shows atrial pacemaker with ventricular rate of 60, IA interval 0.162, QRS 0.89, QTC 0.405) Medical Decision Making - Medical Decision Making EKG shows atrial pacemaker with ventricular rate of 60, IA interval 0.162, QRS 0.89, QTC 0.405 Patient had a pacemaker placed on October 17. On xarelto. Orthostatics show drop in BP from 115/73 sitting to 98/[address] brain interpreted by me shows no evidence of any cranial hemorrhage, mass or midline shift. Radiologist impression CT brain no acute hemorrhage or mass effect. Chest x-ray interpreted by me shows no focal consolidation, trachea midline, no evidence of free air. Cardiac pacemaker noted. Radiologist interpretation chest x-ray chronic changes, borderline heart size. No acute process seen. With 2 syncopal episodes today and evidence of ELIZABETH, she will be placed in observation. Patient is agreeable to this plan of care. Case discussed with Dr. Sampson recommended nephrology consult holding losartan and Dyazide Case discussed with Dr. Brooks Was pt. sent in by a medical professional or institution (, PA, PUBLIC AFFAIRS OFFICER, urgent care, hospital, or fci...) When possible be specific @ -No Did you speak to anyone other than the patient for history (EMS, parent, family, police, friend...)? What history was obtained from this source @ -No Did you review nursing and triage notes (agree or disagree)? Why? @ -I reviewed and agree with nursing and triage notes Were old charts reviewed (outside hosp., previous admission, EMS record, old EKG, old radiological studies, urgent care reports/EKG's, fci records)? Report findings @ -yes previous EKG and labs Differential Diagnosis (chest pain, altered mental status, abdominal pain women, abdominal pain men, vaginal bleeding, weakness, fever, dyspnea, syncope, headache, dizziness, GI bleed, back pain, seizure, CVA, palpatations, mental health, musculoskeletal)? @ -Differential Syncope: Valvular disease, hypertrophic cardiomyopathy, pulmonary embolism, tamponade, tachycardia, bradycardia, [place], hypovolemia, hemorrhage, dissection, anemia, intracranial hemorrhage, seizure, hypoglycemia, carbon monoxide poisoning, this is not meant to be an all-inclusive list. EKG interpreted by me (3pts min.). @ -As above X-rays interpreted by me (1pt min.). @ -Yes as above CT interpreted by me (1pt min.). @ -None done U/S interpreted by me (1pt. min.). @ -None done What testing was considered but not performed or refused? (CT, X-rays, U/S, labs)? Why? @ -None What meds were considered but not given or refused? Why? @ -None Did you discuss the management of the patient with other professionals (professionals i.e. , PA, PUBLIC AFFAIRS OFFICER, lab, RT, psych nurse, high school social studies tutor, cyber incident responder, teacher, multisensor intelligence officer, supportive employment case manager)? Give summary @ -Dr. Sampson Was smoking cessation discussed for >3mins.? @ -No Was critical care preformed (if so, how long)? @ -No Were there social determinants of health that impacted care today? How? (Homelessness, low income, unemployed, alcoholism, drug addiction, transportation, low edu. Level, literacy, decrease access to med. care, [facility], rehab)? @ -No Was there de-escalation of care discussed even if they declined (Discuss DNR or withdrawal of care, Hospice)? DNR status @ -No What co-morbidities impacted this encounter? (DM, HTN, Smoking, COPD, CAD, Cancer, CVA, ARF, Chemo, Hep., AIDS, mental health diagnosis, sleep apnea, morbid obesity)? @ -History of A. fib, DVT, hypertension, chronic kidney disease, pacemaker, hyperlipidemia Was patient admitted / discharged? Hospital course, mention meds given and route, prescriptions, significant lab abnormalities, going to OR and other pertinent info. @ -Admitted Undiagnosed new problem with uncertain prognosis? @ -No Drug Therapy requiring intensive monitoring for toxicity (Heparin, Nitro, Insulin, Cardizem)? @ -No Were any procedures done? @ -No Diagnosis/symptom? @ -Syncope, ELIZABETH Acute, or Chronic, or Acute on Chronic? @ -Acute Uncomplicated (without systemic symptoms) or Complicated (systemic symptoms)? @ -Complicated Side effects of treatment? @ -No Exacerbation, Progression, or Severe Exacerbation? @ -No Poses a threat to life or bodily function? How? (Chest pain, [place], [place], pneumonia, PE, COPD, DKA, ARF, appy, cholecystitis, CVA, Diverticulitis, Homicidal, Suicidal, threat to staff... and all critical care pts) @ -No - Lab Data Result diagrams: 11/20/22 12:22 11/20/22 12:22 Lab Results 11/20/22 11/20/22 11/20/22 Range/Units 12:22 12:22 12:22 WBC 5.6 (3.8-10.6) k/uL RBC 3.98 (3.80-5.40) m/uL Hgb 12.5 (11.4-16.0) gm/dL Hct 35.0 (34.0-46.0) % MCV 88.1 (80.0-100.0) fL MCH 31.4 (25.0-35.0) pg MCHC 35.7 (31.0-37.0) g/dL RDW 20.8 H (11.5-15.5) % Plt Count 221 (150-450) k/uL MPV 8.6 Neutrophils % 70 % Lymphocytes % 21 % Monocytes % 5 % Eosinophils % 1 % Basophils % 0 % Neutrophils # 3.9 (1.3-7.7) k/uL Lymphocytes # 1.2 (1.0-4.8) k/uL Monocytes # 0.3 (0-1.0) k/uL Eosinophils # 0.0 (0-0.7) k/uL Basophils # 0.0 (0-0.2) k/uL Poikilocytosis Slight Anisocytosis Moderate Microcytosis Slight PT 13.5 H (9.0-12.0) sec INR 1.3 H (<1.2) APTT 31.0 H (22.0-30.0) sec D-Dimer 0.51 (<0.60) mg/L FEU Sodium 141 (137-145) mmol/L Potassium 4.3 (3.5-5.1) mmol/L Chloride 105 (98-107) mmol/L Carbon Dioxide 25 (22-30) mmol/L Anion Gap 11 mmol/L BUN 49 H (7-17) mg/dL Creatinine 2.54 H (0.52-1.04) mg/dL Est GFR (CKD-EPI)AfAm 21 (>60 ml/min/1.73 sqM) Est GFR (CKD-EPI)NonAf 19 (>60 ml/min/1.73 sqM) Glucose 89 (74-99) mg/dL Calcium 9.6 (8.4-10.2) mg/dL Magnesium 2.1 (1.6-2.3) mg/dL Total Bilirubin 1.4 H (0.2-1.3) mg/dL AST 21 (14-36) U/L ALT 20 (4-34) U/L Alkaline Phosphatase 59 (38-126) U/L Troponin I (0.000-0.034) ng/mL Total Protein 7.6 (6.3-8.2) g/dL Albumin 4.5 (3.5-5.0) g/dL 11/20/22 Range/Units 12:22 WBC (3.8-10.6) k/uL RBC (3.80-5.40) m/uL Hgb (11.4-16.0) gm/dL Hct (34.0-46.0) % MCV (80.0-100.0) fL MCH (25.0-35.0) pg MCHC (31.0-37.0) g/dL RDW (11.5-15.5) % Plt Count (150-450) k/uL MPV Neutrophils % % Lymphocytes % % Monocytes % % Eosinophils % % Basophils % % Neutrophils # (1.3-7.7) k/uL Lymphocytes # (1.0-4.8) k/uL Monocytes # (0-1.0) k/uL Eosinophils # (0-0.7) k/uL Basophils # (0-0.2) k/uL Poikilocytosis Anisocytosis Microcytosis PT (9.0-12.0) sec INR (<1.2) APTT (22.0-30.0) sec D-Dimer (<0.60) mg/L FEU Sodium (137-145) mmol/L Potassium (3.5-5.1) mmol/L Chloride (98-107) mmol/L Carbon Dioxide (22-30) mmol/L Anion Gap mmol/L BUN (7-17) mg/dL Creatinine (0.52-1.04) mg/dL Est GFR (CKD-EPI)AfAm (>60 ml/min/1.73 sqM) Est GFR (CKD-EPI)NonAf (>60 ml/min/1.73 sqM) Glucose (74-99) mg/dL Calcium (8.4-10.2) mg/dL Magnesium (1.6-2.3) mg/dL Total Bilirubin (0.2-1.3) mg/dL AST (14-36) U/L ALT (4-34) U/L Alkaline Phosphatase (38-126) U/L Troponin I <0.012 (0.000-0.034) ng/mL Total Protein (6.3-8.2) g/dL Albumin (3.5-5.0) g/dL Disposition Clinical Impression: Syncope and collapse, ELIZABETH (acute kidney injury) Disposition: ADMITTED IP TO THIS [facility] Decision Date: 11/20/22 Decision Time: 13:09
[2022-11-20 12:55] LABS: Anisocytosis Moderate; Basophils % (A) 0 %; Eosinophils % (A) 1 %; HGB 12.5 gm/dL (11.4-16.0); Lymphocytes # (A) 1.2 k/uL (1.0-4.8); Lymphocytes % (A) 21 %; MCH 31.4 pg (25.0-35.0); MCHC 35.7 g/dL (31.0-37.0); MCV 88.1 fL (80.0-100.0); Mean Platelet Volume 8.6; Microcytosis Slight; Monocytes # (A) 0.3 k/uL (0-1.0); Monocytes % (A) 5 %; Neutrophils # (A) 3.9 k/uL (1.3-7.7); Neutrophils % (A) 70 %; Platelet Count 221 k/uL (150-450); Poikilocytosis Slight; RBC 3.98 m/uL (3.80-5.40); RDW 20.8 % (11.5-15.5); WBC 5.6 k/uL (3.8-10.6)
[2022-11-20 13:06] LABS: Albumin 4.5 g/dL (3.5-5.0); Calcium 9.6 mg/dL (8.4-10.2); Magnesium 2.1 mg/dL (1.6-2.3); Potassium 4.3 mmol/L (3.5-5.1); Total Bilirubin 1.4 mg/dL (0.2-1.3); Total Protein 7.6 g/dL (6.3-8.2)
[2022-11-20] MEDS ORDERED: SODIUM CHLORIDE 0.9% 500 ML 500 ML IV ONE (13:08)
[2022-11-20 13:09] LABS: INR 1.3 (<1.2); Prothrombin Time 13.5 sec (9.0-12.0)
--- NOTE | 2022-11-20 13:22 | CT ---
EXAMINATION TYPE: CT brain wo con DATE OF EXAM: 11/20/2022 COMPARISON: Syncope HISTORY: syncope CT DLP: 1145.4 mGycm Automated exposure control for dose reduction was used. FINDINGS: Tiny hypodensity within the white matter in the left parietal lobe suggesting infarct. Ventricle size s compatible with patient's age. There is no midline shift or mass effect. No acute hemorrhage. Orbits are symmetric. Calvarium is intact. A partially empty sella turcica. IMPRESSION: NO ACUTE HEMORRHAGE OR MASS EFFECT.
--- NOTE | 2022-11-20 13:29 | XR ---
EXAMINATION TYPE: XR chest 2V DATE OF EXAM: 11/20/2022 COMPARISON: 10/26/2022 HISTORY: 72-year-old female syncope TECHNIQUE: AP and lateral views FINDINGS: Left anterior chest wall pacemaker generator with right atrial and right ventricular leads. Heart upp er limits of normal in size. Aorta and pulmonary vasculature within normal limits. Hazy densities rel ating to large body habitus. Surgical clips left axilla. Degenerative change left shoulder. No consol idation or pleural effusion. IMPRESSION: Chronic changes, borderline heart size. No acute process seen.
[2022-11-20] MEDS ORDERED: ACETAMINOPHEN TAB 325 MG TAB PO PRN (13:49)
[2022-11-20] MEDS ORDERED: NALOXONE 0.4 MG/ML 1 ML VIAL IV PRN (13:49)
[2022-11-20] MEDS: PANTOPRAZOLE 40 MG/10 ML VIAL IVP SCH (20:11)
[2022-11-21] MEDS: SODIUM CHLORIDE 0.9% 1,000 ML IV SCH ×2 (08:50→18:34)
[2022-11-21 08:54] LABS: Anion Gap 13.5 mmol/L (10.00-18.00); BUN/Creat Ratio 19.15 Ratio (12.00-20.00); Blood Urea Nitrogen 49.4 mg/dL (9.0-27.0); Calcium 9.1 mg/dL (8.7-10.3); Carbon Dioxide 21.7 mmol/L (20.0-27.5); Non-African American GFR(CKD) 18.1 (60.0-200.0); Potassium 4.1 mmol/L (3.5-5.5)
[2022-11-21] MEDS: METOPROLOL SUCCINATE (ER) 50 MG TAB.ER.24H PO SCH (09:01)
[2022-11-21] MEDS: CHOLECALCIFEROL 25 MCG (1000 IU) TABLET PO SCH (09:02)
[2022-11-21] MEDS: RIVAROXABAN 15 MG TAB PO SCH (09:02)
[2022-11-21] MEDS: ATORVASTATIN 10 MG TAB PO SCH (09:02)
[2022-11-21] MEDS: PANTOPRAZOLE 40 MG/10 ML VIAL IVP SCH (10:03)
--- NOTE | 2022-11-21 11:03 | P.NPCON ---
History of Present Illness - Reason for Consult acute renal failure, chronic renal failure - History of Present Illness Reason for consultation: Acute kidney injury on chronic kidney disease History of present illness: Patient is a 72-year-old female seen in renal consultation for acute kidney injury on chronic kidney disease. Patient has chronic kidney disease stage IIIa with baseline creatinine in the range of 1.1-1.2 secondary to effort sclerosis and unrecovered ATN in 2003. Patient presented to the hospital due to syncopal episode. Patient states when she got up to walk her dog yesterday she felt off balance. When she went to the bathroom she fell on the floor. She was found by her on the ground. Patient denies history of coronary artery disease. She does have a pacemaker. Denies history of diabetes. Denies use of nonsteroidals. Denies hematuria. Denies fever or chills. No vomiting or diarrhea. Patient was taking triamterenehydrochlorothiazide outpatient and states the dose of her losartan was increased by cardiology about a week ago. Creatinine on admission was 2.54 and is stable at 2.6 today. She is receiving IV fluids. Patient standing blood pressure was noted to be low this admission and 98/70. Blood pressure this morning was 107/67. Chest x-ray showed no evidence of fluid overload. Brain CT was negative for any acute hemorrhage. Vital signs are stable. General: No acute distress. HEENT: Head exam is unremarkable. LUNGS: No audible rhonchi or wheezes. HEART: Rate and Rhythm are regular. ABDOMEN: Nontender. EXTREMITITES: No edema. Past Medical History Past Medical History: Atrial Fibrillation, Cancer, Deep Vein Thrombosis (DVT), Eye Disorder, Hyperlipidemia, Hypertension, Osteoarthritis (OA), Pulmonary Embolus (PE), Renal Disease Additional Past Medical History / Comment(s): POST LEFT MASTECTOMY WENT INTO SEPTIC SHOCK (ICU FOR 10 DAYS)hx of colon polyps, LT BREAST CA 2003.-please use paper tape only. 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 Past Anesthesia/Blood Transfusion Reactions: Previous Problems w/ Anesthesia Additional Past Anesthesia/Blood Transfusion Reaction / Comment(s): trouble waking up in past after eye sx, and went into Afib Type of Cardiac Device: Permanent Pacemaker Device Placement Date:: 10/17/22 Past Psychological History: No Psychological Hx Reported Smoking Status: Former smoker Past Alcohol Use History: Rare Past Drug Use History: None Reported - Past Family History Mother Brother(s) Family Medical History: Cancer, Deep Vein Thrombosis (DVT) Additional Family Medical History / Comment(s): mom breast, brother melanoma Sister(s) Daughter(s) Family Medical History: Cancer Additional Family Medical History / Comment(s): daughter cervical and uterine ca, sister breast Father Family Medical History: Cancer Additional Family Medical History / Comment(s): colon Brother(s) Family Medical History: Cancer Medications and Allergies Home Medications Medication Instructions Recorded Confirmed Type Atorvastatin [Lipitor] 10 mg PO DAILY 09/11/15 11/20/22 History Rivaroxaban [Xarelto] 20 mg PO DAILY #30 tab 05/01/16 11/20/22 Rx Triamterene-Hctz 37.5-25Mg 1 cap PO Q48H 03/17/17 11/20/22 History [Dyazide 37.5-25 Capsule] Cholecalciferol [Vitamin D3 (25 25 mcg PO DAILY 11/20/22 11/20/22 History Mcg = 1000 Iu)] Losartan Potassium 100 mg PO DAILY 11/20/22 11/20/22 History Metoprolol Succinate [Toprol XL] 50 mg PO DAILY 11/20/22 11/20/22 History Allergies Allergy/AdvReac Type Severity Reaction Status Date / Time lidocaine Allergy Anaphylaxis Verified 11/20/22 13:23 adhesive tape AdvReac peels skin Verified 11/20/22 13:23 atropine AdvReac affected Verified 11/20/22 13:23 a-fib chlorhexidine AdvReac Itching Verified 11/20/22 13:23 "CE" Allergy Anaphylaxis Uncoded 11/20/22 11:58 Physical Exam Vitals: Vital Signs Temp Pulse Pulse Resp BP BP BP 11/21/22 09:40 67 16 11/21/22 08:30 67 11/21/22 08:00 67 14 11/21/22 06:38 98.0 F 58 L 14 11/21/22 03:51 97.8 F 63 16 119/71 11/20/22 20:12 97.4 F L 66 16 119/72 11/20/22 20:00 16 11/20/22 16:39 97.4 F L 71 16 124/79 11/20/22 13:40 115/73 11/20/22 11:51 97.5 F L 65 18 101/66 BP BP Pulse Ox 11/21/22 09:40 11/21/22 08:30 107/67 11/21/22 08:00 11/21/22 06:38 127/81 98 11/21/22 03:51 99 11/20/22 20:12 99 11/20/22 20:00 11/20/22 16:39 98 11/20/22 13:40 98/70 104/59 11/20/22 11:51 99 Intake and Output 11/20/22 11/21/22 11/21/22 22:59 06:59 14:59 Intake Total 236 Balance 236 Intake: Oral 236 Other: Voiding Method Toilet Toilet Toilet # Voids 2 2 Weight 113.398 kg Results - Lab Results Most recent lab results Calcium 9.1 mg/dL (8.7-10.3) 11/21/22 05:00 Magnesium 2.1 mg/dL (1.6-2.3) 11/20/22 12:22 11/20/22 12:22 11/21/22 05:00 Assessment and Plan Plan: Assessment: 1. Acute kidney injury secondary to ischemic ATN secondary to hypotension and diuretics. Further worsened with the use of losartan. Creatinine stable at 2.6. 2. Chronic kidney disease stage III with baseline creatinine 1.1 1.2 secondary to nephrosclerosis and nonrecovered ATN in 2003. 3. Hypertension with chronic kidney disease. Orthostatic this admission. Antihypertensives held. 4. History of A. fib and pacemaker placement. Plan: Maintain IV fluids. Continue to hold antihypertensives and diuretics. Check UA and renal ultrasound. Monitor orthostatic vitals daily. Follow-up echocardiogram. Check bladder scan to rule out urinary retention. Thank you for the consultation. I will continue to follow the patient with you during her hospital stay.
--- NOTE | 2022-11-21 12:02 | P.HPIM ---
History of Present Illness H&P Date: 11/21/22 Chief Complaint: Syncope This is a 72-year-old female with past medical history significant for hypertension, hyperlipidemia, PE ,DVT, left breast cancer status post mastectomy /chemo in 2003, paroxysmal atrial fibrillation, recent permanent pacemaker 11/06, anticoagulated on Xarelto and multiple other medical issues presented to the ER with complaints of near syncope, syncope. Patient states yesterday morning she became lightheaded and proceeded to sit down after letting the dog out. After getting up to let the dog back, and proceeded to the bathroom, developed lightheadedness and passed out on the floor. Denies incontinence of urine or bowel. Denies chest pain, palpitations. Reports shortness of breath. Denies nausea, vomiting or diarrhea, reports increased thirst. Denies recent illness but states 2 nights prior she developed bloating, epigastric heaviness after dinner, lasting all night long. Brain CT brain no acute hemorrhage or mass effect. Chest x-ray reported chronic changes, no acute process. EKG reports atrially paced. Afebrile, unremarkable hematology panel, INR 1.3, d-dimer 0.51, sodium 140, potassium 4.1, bicarb 21.7, BUN 49.4, creatinine 2.6, mag 2.1, total bili 1.4, troponins negative 2. Patient's losartan dose recently increased last 11/14/2022. On admission heart rates in the 60s, respiratory rate 1618, blood pressure 101/66, positive orthostatic hypotension. Review of Systems ROS Statement: Those systems with pertinent positive or pertinent negative responses have been documented in the HPI. ROS Other: All systems not noted in ROS Statement are negative. Past Medical History Past Medical History: Atrial Fibrillation, Cancer, Deep Vein Thrombosis (DVT), Eye Disorder, Hyperlipidemia, Hypertension, Osteoarthritis (OA), Pulmonary Embolus (PE), Renal Disease Additional Past Medical History / Comment(s): POST LEFT MASTECTOMY WENT INTO SEPTIC SHOCK (ICU FOR 10 DAYS)hx of colon polyps, LT BREAST CA 2003.-please use paper tape only. 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 Past Anesthesia/Blood Transfusion Reactions: Previous Problems w/ Anesthesia Additional Past Anesthesia/Blood Transfusion Reaction / Comment(s): trouble waking up in past after eye sx, and went into Afib Type of Cardiac Device: Permanent Pacemaker Device Placement Date:: 10/17/22 Past Psychological History: No Psychological Hx Reported Smoking Status: Former smoker Past Alcohol Use History: Rare Past Drug Use History: None Reported - Past Family History Mother Brother(s) Family Medical History: Cancer, Deep Vein Thrombosis (DVT) Additional Family Medical History / Comment(s): mom breast, brother melanoma Sister(s) Daughter(s) Family Medical History: Cancer Additional Family Medical History / Comment(s): daughter cervical and uterine ca, sister breast Father Family Medical History: Cancer Additional Family Medical History / Comment(s): colon Brother(s) Family Medical History: Cancer Medications and Allergies Home Medications Medication Instructions Recorded Confirmed Type Atorvastatin [Lipitor] 10 mg PO DAILY 09/11/15 11/20/22 History Rivaroxaban [Xarelto] 20 mg PO DAILY #30 tab 05/01/16 11/20/22 Rx Triamterene-Hctz 37.5-25Mg 1 cap PO Q48H 03/17/17 11/20/22 History [Dyazide 37.5-25 Capsule] Cholecalciferol [Vitamin D3 (25 25 mcg PO DAILY 11/20/22 11/20/22 History Mcg = 1000 Iu)] Losartan Potassium 100 mg PO DAILY 11/20/22 11/20/22 History Metoprolol Succinate [Toprol XL] 50 mg PO DAILY 11/20/22 11/20/22 History Allergies Allergy/AdvReac Type Severity Reaction Status Date / Time lidocaine Allergy Anaphylaxis Verified 11/20/22 13:23 adhesive tape AdvReac peels skin Verified 11/20/22 13:23 atropine AdvReac affected Verified 11/20/22 13:23 a-fib chlorhexidine AdvReac Itching Verified 11/20/22 13:23 "CE" Allergy Anaphylaxis Uncoded 11/20/22 11:58 Physical Exam Vitals: Vital Signs Temp Pulse Pulse Resp BP BP BP 11/21/22 09:40 67 16 11/21/22 08:30 67 11/21/22 08:00 67 14 11/21/22 06:38 98.0 F 58 L 14 11/21/22 03:51 97.8 F 63 16 119/71 11/20/22 20:12 97.4 F L 66 16 119/72 11/20/22 20:00 16 11/20/22 16:39 97.4 F L 71 16 124/79 11/20/22 13:40 115/73 11/20/22 11:51 97.5 F L 65 18 101/66 BP BP Pulse Ox 11/21/22 09:40 11/21/22 08:30 107/67 11/21/22 08:00 11/21/22 06:38 127/81 98 11/21/22 03:51 99 11/20/22 20:12 99 11/20/22 20:00 11/20/22 16:39 98 11/20/22 13:40 98/70 104/59 11/20/22 11:51 99 Intake and Output 11/20/22 11/21/22 11/21/22 22:59 06:59 14:59 Intake Total 236 Balance 236 Intake: Oral 236 Other: Voiding Method Toilet Toilet Toilet # Voids 2 2 Weight 113.398 kg General: [Patient awake, alert and oriented times 3. Patient in no acute distress.] HEENT: [PERRL. EOMI. No pharyngeal erythema or exudate.] Neck: [No adenopathy.] Cardiac: [Heart regular in rate and rhythm. No S3. No S4. No clicks, rubs. No murmur.] Lungs: [Clear to auscultation bilaterally.] History of breast cancer with mastectomy Abdomen: [No mass. No organomegaly. Bowel sounds presnt and normoactive in all 4 quadrants.] Extremes: [No edema no cyanosis no claudication normal pulses] Skin: [Warm and dry,No rash.] Neurologic: CN II - XII grossly intact.] Results CBC & Chem 7: 11/20/22 12:22 11/21/22 05:00 Labs: Abnormal Lab Results - Last 24 Hours (Table) 11/20/22 11/20/22 11/20/22 Range/Units 12:22 12:22 12:22 RDW 20.8 H (11.5-15.5) % PT 13.5 H (9.0-12.0) sec INR 1.3 H (<1.2) APTT 31.0 H (22.0-30.0) sec BUN 49 H (7-17) mg/dL Creatinine 2.54 H (0.52-1.04) mg/dL Est GFR (CKD-EPI)AfAm (60.0-200.0) Est GFR (CKD-EPI)NonAf (60.0-200.0) Total Bilirubin 1.4 H (0.2-1.3) mg/dL 11/21/22 Range/Units 05:00 RDW (11.5-15.5) % PT (9.0-12.0) sec INR (<1.2) APTT (22.0-30.0) sec BUN 49.4 H (7-17) mg/dL Creatinine 2.6 H (0.52-1.04) mg/dL Est GFR (CKD-EPI)AfAm 21.0 L (60.0-200.0) Est GFR (CKD-EPI)NonAf 18.1 L (60.0-200.0) Total Bilirubin (0.2-1.3) mg/dL Thrombosis Risk Factor Assmnt - Choose All That Apply Each Risk Factor Represents 2 Points: Age 61-74 years Thrombosis Risk Factor Assessment Total Risk Factor Score: 2 Thrombosis Risk Factor Assessment Level: Low Risk Assessment and Plan Assessment: Syncope,Losatan dose recently increased. Acute on chronic renal III, ATN secondary to hypotension, medications -diuretics,losartan Orthostatic hypotension, antihypertensives, diuretics on hold Hypertension, history of Hyperlipidemia History of PE, DVT on Xarelto Permanent pacemaker implantation paroxysmal atrial fibrillation History of breast cancer with mastectomy, status post chemotherapy Plan: Continue on current medication regime ,monitoring and symptomatic treatment. Maintain IV fluid hydration.Echo,UA, renal ultrasound pending. Evaluated by cardiology and nephrology with recommendations and appreciated. Antihypertensives/diuretics on hold. Received report of pacemaker interrogation normal. Close monitoring of renal function with repeat labs ordered for a.m. The impression and plan of care has been dictated as directed. : I performed a history and examination of this patient, discussed the same with the dictator. I agree with the dictator's note ,documented as a scribe. Any additional findings or plans will be noted.
--- NOTE | 2022-11-21 13:49 | CONS ---
CONSULTATION HISTORY OF PRESENT ILLNESS: This is a 72-year-old lady with a known history of paroxysmal atrial fibrillation with tachy-zoe phenomenon, long pauses, hypertension, hyperlipidemia, chronic kidney disease, whose last creatinine was actually in the close to normal range. She underwent a permanent pacemaker that was placed on October 17. She was recently seen by Dr. Silveira on November 14, at which time, her blood pressure was elevated; and therefore, he increased her losartan apparently from 25 to 100 mg daily per the patient. I do not have this information with me, however. She is here because of an episode of syncope and near-syncope. She upon arrival was found to have a creatinine of 2.54, a repeat one of 2.6. Increased dose of losartan contributing to her acute kidney injury is a likely possibility. She is, however, asymptomatic at this time, resting comfortably. Her pacemaker has been interrogated, and the thresholds and sensitivities are excellent. There were no significant arrhythmias. She has history of DVT, pulmonary embolism, chronic kidney disease, and is on Xarelto 20 mg daily. Apparently, she had an episode of near-syncope followed by a few minutes later when she actually passed out, did not lose any control of bladder or bowel. She has not hurt herself. At the time of my evaluation, she is actually doing well, resting comfortably. PAST MEDICAL HISTORY: 1. Paroxysmal atrial fibrillation with tachy-zoe phenomenon, recent pacemaker. 2. History of DVT and pulmonary embolism. 3. Hypertension. 4. Hyperlipidemia. 5. History of breast cancer. Left mastectomy in the past. MEDICATIONS AT HOME: Include: 1. Metoprolol succinate 50 mg daily. 2. Losartan was increased from 25 to 100 mg on November 14. 3. Lipitor 10 mg daily. 4. Dyazide 1 tablet every other day. ALLERGIES: She is allergic to adhesive tape, question of allergy to lidocaine. PHYSICAL EXAMINATION: VITAL SIGNS: Blood pressure is 127/70, pulse rate is 56 per minute. HEENT: Unremarkable. Fundus was not examined by me. NECK: Supple. No JVD. I do not hear a carotid bruit. HEART: Reveals S1 and S2 heard normally. Short systolic murmur at left sternal border. LUNGS: Reveal bilateral decent air entry. ABDOMEN: Soft. EXTREMITIES: Lower extremities reveal diminished pulses. CENTRAL NERVOUS SYSTEM: Normal. DIAGNOSTIC STUDIES: EKG revealed atrial-paced rhythm, 57 beats per minute with nonspecific ST abnormality. IMPRESSION: 1. Syncope, probably related to some dehydration. 2. Acute kidney injury, probably precipitated by a higher dose of losartan. 3. Sick sinus syndrome with tachy-zoe phenomenon, has a permanent pacemaker about a month ago. 4. Paroxysmal atrial fibrillation. 5. Hyperlipidemia. 6. Hypertension. 7. History of breast cancer. RECOMMENDATIONS: I am recommending that we hold losartan, hydrate her at 100 mL/hour normal saline for 12 hours and then KVO. Continue telemetry monitoring. Her device has been interrogated, and the device is functioning well. No significant arrhythmias are noted. We will also seek Nephrology evaluation. I will obtain a limited echocardiogram as well. Her D-dimer was normal. Thank you very much for the consult. MARLENI / JASMINE: [id number] /
--- NOTE | 2022-11-21 14:09 | US ---
EXAMINATION TYPE: US renals and bladder DATE OF EXAM: 11/21/2022 COMPARISON: NONE CLINICAL HISTORY: elizabeth. ELIZABETH EXAM MEASUREMENTS: Right Kidney: 10.3 x 5.4 x 4.8 cm Left Kidney: 11.5 x 6.2 x 4.8 cm Multiple grayscale ultrasound images of the kidneys and urinary bladder were obtained. Right Kidney: no evidence of hydronephrosis Left Kidney: no evidence of hydronephrosis Bladder: appears wnl Bilateral Jets seen: no There is no evidence for hydronephrosis at this point in time. No nephrolithiasis is seen. Vertical measured differentiation is maintained bilaterally. No masses are identified. The urinary bladder is anechoic. IMPRESSION: No evidence of hydronephrosis or nephrolithiasis.
[2022-11-21 16:55] LABS: Appearance,Urine Clear (Clear); Bilirubin,Urine Negative (Negative); Blood,Urine Negative (Negative); Color,Urine Light Yellow; Glucose,Urine (UA) Negative (Negative); Ketones,Urine Negative (Negative); Leukocyte Esterase,Urine Negative (Negative); Nitrite,Urine Negative (Negative); Protein,Urine Negative (Negative); Specific Gravity,Urine 1.009 (1.001-1.035); Urobilinogen,Urine <2.0 mg/dL (<2.0)
--- NOTE | 2022-11-21 17:00 | CA ---
Transthoracic Echo Report Name: Jewels Virk Age: 72 Gender: F : 1950 Exam Date: 11/21/2022 14:25 Exam Location: [facility] Ht (in): 68 Wt (lb): 250 Ordering Physician: Lynda Blanc MD ([id number]) Attending/Referring Phys: Manager Wound Care Hue Owen RDCS Procedure CPT: Indications: Eval LV FX--Limited Study Cardiac Hx: Technical Quality: Fair Contrast 1: Total Dose (mL): Contrast 2: Total Dose (mL): MEASUREMENTS (Male / Female) Normal Values 2D ECHO LV Diastolic Diameter PLAX 5.0 cm 4.2 - 5.9 / 3.9 - 5.3 cm IVS Diastolic Thickness 1.9 cm 0.6 - 1.0 / 0.6 - 0.9 cm LVPW Diastolic Thickness 1.3 cm 0.6 - 1.0 / 0.6 - 0.9 cm LV Relative Wall Thickness 0.7 LV Diastolic Volume MOD 4C 81.0 cm??? LV Systolic Volume MOD 4C 27.0 cm??? LV Ejection Fraction MOD 4C 66.6 % LV Diastolic Length 4C 9.2 cm LV Systolic Length 4C 7.3 cm FINDINGS Left Ventricle Moderately increased septal wall thickness. Moderately increased posterior wall thickness. Left ventricular cavity size normal. Left ventricular ejection fraction is estimated at least 60%. Right Ventricle Right Atrium Left Atrium Mitral Valve Aortic Valve Tricuspid Valve Pulmonic Valve Pericardium Aorta CONCLUSIONS This is a limited study done to evaluate LV function. There is concentric left ventricular hypertrophy with normal LV function with an ejection fraction of 60% Previewed by: Dr. Leon Castillo MD (Electronically Signed) Final Date: 21 November 2022 16:59
[2022-11-22] MEDS: SODIUM CHLORIDE 0.9% 1,000 ML IV SCH (05:58)
[2022-11-22] MEDS: CHOLECALCIFEROL 25 MCG (1000 IU) TABLET PO SCH (08:33)
[2022-11-22] MEDS: METOPROLOL SUCCINATE (ER) 50 MG TAB.ER.24H PO SCH (08:34)
[2022-11-22] MEDS: PANTOPRAZOLE 40 MG/10 ML VIAL IVP SCH (08:34)
[2022-11-22] MEDS: ATORVASTATIN 10 MG TAB PO SCH (08:34)
[2022-11-22] MEDS: RIVAROXABAN 15 MG TAB PO SCH (08:34)
[2022-11-22 08:45] VITALS: BP 135/82; PULSE 64; RESP 17; TEMP 97.4
[2022-11-22 09:01] LABS: African American GFR (CKD) 35 (>60 ml/min/1.73 sqM); Anion Gap 10 mmol/L; Blood Urea Nitrogen 36 mg/dL (7-17); Calcium 7.8 mg/dL (8.4-10.2); Carbon Dioxide 20 mmol/L (22-30); Chloride 112 mmol/L (98-107); Glucose 87 mg/dL (74-99); Magnesium 1.8 mg/dL (1.6-2.3); Non-African American GFR(CKD) 30 (>60 ml/min/1.73 sqM); Potassium 3.6 mmol/L (3.5-5.1); Sodium 142 mmol/L (137-145)
--- NOTE | 2022-11-22 10:42 | P.PN ---
Subjective Progress Note Date: 11/22/22 Patient seen resting comfortably in bed in no sides acute distress blood pressure is well-controlled. with the chest pain or shortness of breath. Creatinine has improved BUN is 36 creatinine is 1.69. Losartan has been discontinued. Objective - Vital Signs Vital signs: Vital Signs Temp 97.4 F L 11/22/22 07:00 Pulse 64 11/22/22 08:00 Resp 17 11/22/22 08:00 BP 135/82 11/22/22 07:00 Pulse Ox 96 11/22/22 08:01 FiO2 Intake & Output 11/21/22 11/22/22 11/22/22 18:59 06:59 18:59 Intake Total 118 118 Balance 118 118 Intake: Oral 118 118 Other: Voiding Method Toilet Toilet Toilet # Voids 4 2 2 - Exam PHYSICAL EXAM: VITAL SIGNS: Reviewed. GENERAL: Well-developed in no acute distress. HEENT: Head is normocephalic. Pupils are equal, round. Sclerae anicteric. Mucous membranes of the mouth are moist. NECK: Supple. No JVD or thyromegaly RESPIRATORY: Respirations even and unlabored. Lungs diminished to auscultation bilaterally. CARDIO: Regular rate and rhythm. S1 and S2 heard. No murmur or gallops. EXTREMITIES: Normal range of motion. No clubbing or cyanosis. Peripheral pulses intact. Negative for bilateral lower extremity edema NEURO: Orientated to person, time, mood is appropriate - Labs CBC & Chem 7: 11/20/22 12:22 11/22/22 08:05 Labs: Abnormal Lab Results - Last 24 Hours (Table) 11/22/22 Range/Units 08:05 Chloride 112 H (98-107) mmol/L Carbon Dioxide 20 L (22-30) mmol/L BUN 36 H (7-17) mg/dL Creatinine 1.69 H (0.52-1.04) mg/dL Calcium 7.8 L (8.4-10.2) mg/dL Assessment and Plan Assessment: paroxysmal atrial fibrillation History of DVT and pulmonary embolism Hypertension Hyperlipidemia Plan: Losartan is discontinued continue with all other current cardiac medications Patient is cleared for discharge from a cardiac standpoint The above impression and plan of care have been discussed and directed by the signing physician. Nikole Syed, nurse practitioner, acting as scribe for signing physician.
--- NOTE | 2022-11-22 12:28 | P.PN ---
Subjective 11/21/2022: This is a 72-year-old female with past medical history significant for hypertension, hyperlipidemia, PE ,DVT, left breast cancer status post mastectomy /chemo in 2003, paroxysmal atrial fibrillation, recent permanent pacemaker 11/06, anticoagulated on Xarelto and multiple other medical issues presented to the ER with complaints of near syncope, syncope. Patient states yesterday morning she became lightheaded and proceeded to sit down after letting the dog out. After getting up to let the dog back, and proceeded to the bathroom, developed lightheadedness and passed out on the floor. Denies incontinence of urine or bowel. Denies chest pain, palpitations. Reports shortness of breath. Denies nausea, vomiting or diarrhea, reports increased thirst. Denies recent illness but states 2 nights prior she developed bloating, epigastric heaviness after dinner, lasting all night long. Brain CT brain no acute hemorrhage or mass effect. Chest x-ray reported chronic changes, no acute process. EKG reports atrially paced. Afebrile, unremarkable hematology panel, INR 1.3, d-dimer 0.51, sodium 140, potassium 4.1, bicarb 21.7, BUN 49.4, creatinine 2.6, mag 2.1, total bili 1.4, troponins negative 2. Patient's losartan dose recently increased last 11/14/2022. On admission heart rates in the 60s, respiratory rate 1618, blood pressure 101/66, positive orthostatic hypotension. 11/22/2022: Patient is reevaluated for acute renal failure is likely due to ischemic ATN related to hypotension and increased use of losartan. Her Dyazide was started was discontinued. Currently she feels much improved. She remains on IV fluids and 100 mL an hour normal saline. Vital signs are stable. Last blood pressure 135/82. She is afebrile. Labs show her BUN 36 creatinine 1.69, GFR is improved to 30 from 18.1. Nephrology and cardiology notes reviewed. He has a history of paroxysmal atrial fibrillation, but has been controlled during this admission. She has long-term anticoagulation with Xarelto. Objective - Vital Signs Vital signs: Vital Signs Temp 97.4 F L 11/22/22 07:00 Pulse 64 11/22/22 08:00 Resp 17 11/22/22 08:00 BP 135/82 11/22/22 07:00 Pulse Ox 96 11/22/22 08:01 FiO2 Intake & Output 11/21/22 11/22/22 11/22/22 18:59 06:59 18:59 Intake Total 118 118 Balance 118 118 Intake: Oral 118 118 Other: Voiding Method Toilet Toilet Toilet # Voids 4 2 2 - Exam General: The patient is awake and alert, in no distress, and does not appear acutely ill. Neck: The neck is supple, there is no thyromegaly, lymphadenopathy, tenderness or JVD. Cardiovascular: S1S2 is normal, There is a regular rate and rhythm. No murmur, rub or gallop is appreciated. Respiratory: Lungs are clear to auscultation bilaterally, respirations are non-labored, breath sounds are equal. Gastrointestinal: Soft, non-distended, non-tender abdomen without masses or organomegaly noted. There is no rebound or guarding present. Bowel sounds are unremarkable. Musculoskeletal: Normal ROM, no tenderness, There is no pedal edema. There is no calf tenderness or swelling. No cords were appreciated. Neurological: CN II-XII intact, there are no obvious motor or sensory deficits. Coordination appears grossly intact. Speech is normal. Skin: Skin is warm and dry and no rashes or lesions are noted. - Labs CBC & Chem 7: 11/20/22 12:22 11/22/22 08:05 Labs: Abnormal Lab Results - Last 24 Hours (Table) 11/22/22 Range/Units 08:05 Chloride 112 H (98-107) mmol/L Carbon Dioxide 20 L (22-30) mmol/L BUN 36 H (7-17) mg/dL Creatinine 1.69 H (0.52-1.04) mg/dL Calcium 7.8 L (8.4-10.2) mg/dL Assessment and Plan (1) Paroxysmal atrial fibrillation Current Visit: Yes Status: Acute Code(s): I48.0 - PAROXYSMAL ATRIAL FIBRILLATION SNOMED Code(s): 662501884 (2) half-way (current) use of anticoagulants Current Visit: Yes Status: Acute Code(s): Z79.01 - [facility] (CURRENT) USE OF ANTICOAGULANTS SNOMED Code(s): 588858940 (3) Mixed hyperlipidemia Current Visit: Yes Status: Acute Code(s): E78.2 - MIXED HYPERLIPIDEMIA SNOMED Code(s): 866811439 (4) Essential (primary) hypertension Current Visit: Yes Status: Acute Code(s): I10 - ESSENTIAL (PRIMARY) HYPERTENSION SNOMED Code(s): 00777214 (5) GERD (gastroesophageal reflux disease) Current Visit: Yes Status: Acute Code(s): K21.9 - GASTRO-ESOPHAGEAL REFLUX DISEASE WITHOUT ESOPHAGITIS SNOMED Code(s): 016332942 (6) ELIZABETH (acute kidney injury) Current Visit: Yes Status: Acute Code(s): N17.9 - ACUTE KIDNEY FAILURE, UNSPECIFIED SNOMED Code(s): 24683806 (7) Syncope and collapse Current Visit: Yes Status: Acute Code(s): R55 - SYNCOPE AND COLLAPSE SNOMED Code(s): 391935066 (8) Hx of pulmonary embolus Current Visit: Yes Status: Acute Code(s): Z86.711 - PERSONAL HISTORY OF PULMONARY EMBOLISM SNOMED Code(s): 237728854 (9) H/O deep venous thrombosis Current Visit: Yes Status: Acute Code(s): Z86.718 - PERSONAL HISTORY OF OTHER VENOUS THROMBOSIS AND EMBOLISM SNOMED Code(s): 249615464 (10) H/O malignant neoplasm of breast Current Visit: Yes Status: Acute Code(s): Z85.3 - PERSONAL HISTORY OF MALIG NANT NEOPLASM OF BREAST SNOMED Code(s): 866214637 Plan: Her kidney functions continue to improve. She remains on IV fluids. She remains on metoprolol for blood pressure control, Xarelto for anticoagulation, pantoprazole for GERD, atorvastatin for hyperlipidemia. We'll await further recommendations from nephrology and possible discharge today versus tomorrow. Cardiology is cleared her.
--- NOTE | 2022-11-22 13:36 | P.PN ---
Subjective Progress Note Date: 11/22/22 Principal diagnosis: This is a 72-year-old female seen in consultation because of acute kidney injury secondary to volume depletion diuretics and losartan. Came in with syncopal mihai [place]. She is known with chronic kidney disease with baseline creatinine of about 1.2 secondary to nephrosclerosis. Supposedly had losartan was increased recently from 5200 mg. No other medications are added. She does follow with our office. On admission her blood pressure was somewhat low 98/70. With blood pressure medication on hold and on IV fluids creatinine is improved from 2.6-1.69 this morning Past history significant for heart catheterization breast surgery septic shock post left mastectomy, DVT right leg pulmonary embolism Objective - Vital Signs Vital signs: Vital Signs Temp 97.4 F L 11/22/22 07:00 Pulse 64 11/22/22 08:00 Resp 17 11/22/22 08:00 BP 135/82 11/22/22 07:00 Pulse Ox 96 11/22/22 08:01 FiO2 Intake & Output 11/21/22 11/22/22 11/22/22 18:59 06:59 18:59 Intake Total 118 118 Balance 118 118 Intake: Oral 118 118 Other: Voiding Method Toilet Toilet Toilet # Voids 4 2 2 On exam she is awake alert oriented comfortable was able to walk around without any dizziness HEENT exam no JVP neck is supple no facial asymmetry Lungs clear to auscultation good air entry Heart sounds unremarkable Abdomen soft nontender. Extremity exam no edema Neurologically awake alert oriented - Labs CBC & Chem 7: 11/20/22 12:22 11/22/22 08:05 Labs: Abnormal Lab Results - Last 24 Hours (Table) 11/22/22 Range/Units 08:05 Chloride 112 H (98-107) mmol/L Carbon Dioxide 20 L (22-30) mmol/L BUN 36 H (7-17) mg/dL Creatinine 1.69 H (0.52-1.04) mg/dL Calcium 7.8 L (8.4-10.2) mg/dL Assessment and Plan Assessment: Impression 1. Chronic kidney disease,stage III baseline creatinine 1.06 dated 10/26/2022. 2. Acute kidney injury secondary to low blood pressure may be related to the increased losartan dose. Creatinine peaked at 2.6 and sitting to 1.69 this morning 3. Atrial fibrillation controlled ventricular response 4. History of recent pacemaker. 5. History of PE and DVT in the past. 6. History of CA breast is post left breast mastectomy 2003. Recommendation 1. Patient can be discharged home. 2. She should check pressures at home 3 times a day with heart rate and daily weight and come back and see us in the office in about 3-4 days. 3. Hold off losartan for right now. 4. Her pressure goes up above 160 to call us so that we can restart blood pressure medication and lower.
--- NOTE | 2022-11-22 15:13 | P.DS ---
Providers Date of admission: 11/20/22 13:49 Expected date of discharge: 11/22/22 Attending physician: Perry Sampson Consults: 11/20/22 13:49 Consult Physician Routine Consulting Provider: Angelo Silveira Consult Reason/Comments: syncope Do you want consulting provider notified?: Yes, Notify in am 11/20/22 13:57 Consult Physician Routine Consulting Provider: Evans Cannon Consult Reason/Comments: elizabeth Do you want consulting provider notified?: Yes, Notify in am Primary care physician: Perry Sampson - Discharge Diagnosis(es) (1) Paroxysmal atrial fibrillation Current Visit: Yes Status: Acute (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 Current Visit: Yes Status: Acute (3) Mixed hyperlipidemia Current Visit: Yes Status: Acute (4) Essential (primary) hypertension Current Visit: Yes Status: Acute (5) GERD (gastroesophageal reflux disease) Current Visit: Yes Status: Acute (6) ELIZABETH (acute kidney injury) Current Visit: Yes Status: Acute (7) Syncope and collapse Current Visit: Yes Status: Acute (8) Hx of pulmonary embolus Current Visit: Yes Status: Acute (9) H/O deep venous thrombosis Current Visit: Yes Status: Acute (10) H/O malignant neoplasm of breast Current Visit: Yes Status: Acute Hospital Course: 11/21/2022: This is a 72-year-old female with past medical history significant for hypertension, hyperlipidemia, PE ,DVT, left breast cancer status post mastectomy /chemo in 2003, paroxysmal atrial fibrillation, recent permanent pacemaker 11/06, anticoagulated on Xarelto and multiple other medical issues presented to the ER with complaints of near syncope, syncope. Patient states yesterday morning she became lightheaded and proceeded to sit down after letting the dog out. After getting up to let the dog back, and proceeded to the bathroom, developed lightheadedness and passed out on the floor. Denies incontinence of urine or bowel. Denies chest pain, palpitations. Reports shortness of breath. Denies nausea, vomiting or diarrhea, reports increased thirst. Denies recent illness but states 2 nights prior she developed bloating, epigastric heaviness after dinner, lasting all night long. Brain CT brain no acute hemorrhage or mass effect. Chest x-ray reported chronic changes, no acute process. EKG reports atrially paced. Afebrile, unremarkable hematology panel, INR 1.3, d-dimer 0.51, sodium 140, potassium 4.1, bicarb 21.7, BUN 49.4, creatinine 2.6, mag 2.1, total bili 1.4, troponins negative 2. Patient's losartan dose recently increased last 11/14/2022. On admission heart rates in the 60s, respiratory rate 1618, blood pressure 101/66, positive orthostatic hypotension. 11/22/2022: Patient is reevaluated for acute renal failure is likely due to ischemic ATN related to hypotension and increased use of losartan. Her Dyazide was started was discontinued. Currently she feels much improved. She remains on IV fluids and 100 mL an hour normal saline. Vital signs are stable. Last blood pressure 135/82. She is afebrile. Labs show her BUN 36 creatinine 1.69, GFR is improved to 30 from 18.1. Nephrology and cardiology notes reviewed. He has a history of paroxysmal atrial fibrillation, but has been controlled during this admission. She has long-term anticoagulation with Xarelto. addendum 11/22/2022: patient cleared by nephrology and she wishes to go home for the holiday tomorrow. She ill f/u in 3 days for blood chemistries. Plan - Discharge Summary New Discharge Prescriptions: New Acetaminophen Tab [Tylenol] 650 mg PO Q6HR PRN tab PRN Reason: Mild Pain Or Fever > 100.5 Continue Atorvastatin [Lipitor] 10 mg PO DAILY Rivaroxaban [Xarelto] 20 mg PO DAILY #30 tab Cholecalciferol [Vitamin D3 (25 Mcg = 1000 Iu)] 25 mcg PO DAILY Metoprolol Succinate [Toprol XL] 50 mg PO DAILY Discontinued Triamterene-Hctz 37.5-25Mg [Dyazide 37.5-25 Capsule] 1 cap PO Q48H Losartan Potassium 100 mg PO DAILY Discharge Medication List Atorvastatin [Lipitor] 10 mg PO DAILY 09/11/15 [History] Rivaroxaban [Xarelto] 20 mg PO DAILY #30 tab 05/01/16 [Rx] Cholecalciferol [Vitamin D3 (25 Mcg = 1000 Iu)] 25 mcg PO DAILY 11/20/22 [History] Metoprolol Succinate [Toprol XL] 50 mg PO DAILY 11/20/22 [History] Acetaminophen Tab [Tylenol] 650 mg PO Q6HR PRN tab 11/22/22 [Rx] Follow up Appointment(s)/Referral(s): Perry Sampson MD [Primary Care Provider] - 1-2 days Evans Cannon DO [STAFF PHYSICIAN] - 1 Week Leon Castillo MD [STAFF PHYSICIAN] - 1 Week Ambulatory/Diagnostic Orders: Basic Metabolic Panel [LAB.AMB] Time Frame: 3 Days, Facility: [facility], Location: [facility] Discharge Disposition: HOME SELF-CARE
== END 2022-11-22 15:46 | disposition home or self-care (01) ==
LOC: EC 11:48 → 6NMEDSUR 13:49
PROVIDERS: ADMIT Family Medicine; ATTEND Family Medicine
DX: R52 Pain, unspecified (principal); I48.0 Paroxysmal atrial fibrillation; E78.2 Mixed hyperlipidemia; K21.9 Gastro-esophageal reflux disease without esophagitis; I12.9 Hypertensive chronic kidney disease with stage 1 through stage 4 chronic kidney disease, or unspecified chronic kidney disease; N17.9 Acute kidney failure, unspecified; N18.31 Chronic kidney disease, stage 3a; H18.513 Endothelial corneal dystrophy, bilateral; R55 Syncope and collapse; Z95.0 Presence of cardiac pacemaker; Z98.42 Cataract extraction status, left eye; Z98.41 Cataract extraction status, right eye; Z94.7 Corneal transplant status; Z86.010 Personal history of colon polyps; Z86.711 Personal history of pulmonary embolism; Z85.3 Personal history of malignant neoplasm of breast; Z86.718 Personal history of other venous thrombosis and embolism; Z87.891 Personal history of nicotine dependence; Z90.12 Acquired absence of left breast and nipple; Z80.49 Family history of malignant neoplasm of other genital organs; Z92.21 Personal history of antineoplastic chemotherapy; Z80.3 Family history of malignant neoplasm of breast; Z80.8 Family history of malignant neoplasm of other organs or systems; Z82.49 Family history of ischemic heart disease and other diseases of the circulatory system; Z79.899 Other long term (current) drug therapy; Z79.01 Long term (current) use of anticoagulants; Z88.4 Allergy status to anesthetic agent; Z88.8 Allergy status to other drugs, medicaments and biological substances; Z91.09 Other allergy status, other than to drugs and biological substances
CPT/HCPCS: 96376 ×2; 96361 ×4; 96374; 99285; 36415; 94760; 93005; 93308; 85379; 80053; 80048 ×2; 83735 ×2; 84484 ×2; 85025; 85610; 85730; 81003; 71046; 76770; 70450; G0378 ×3; C9113 ×3

== ENCOUNTER → 2022-11-25 | Outpatient (CLI) | payer MEDICARE, BC ==
[2022-11-25 16:18] LABS: Albumin 4.2 g/dL (3.8-4.9); Albumin/Globulin Ratio 1.62 (1.60-3.17); Anion Gap 8.9 mmol/L (10.00-18.00); BUN/Creat Ratio 13.36 Ratio (12.00-20.00); Blood Urea Nitrogen 18.7 mg/dL (9.0-27.0); Carbon Dioxide 25.1 mmol/L (20.0-27.5); Globulin 2.6 g/dL (1.6-3.3); Potassium 4.5 mmol/L (3.5-5.5); Total Bilirubin 0.7 mg/dL (0.30-1.20); Total Protein 6.8 g/dL (6.2-8.2)
== END | disposition home or self-care (01) ==
LOC: LABWHC1 10:40
PROVIDERS: ATTEND Family Medicine
DX: Z09 Encounter for follow-up examination after completed treatment for conditions other than malignant neoplasm (principal); I12.9 Hypertensive chronic kidney disease with stage 1 through stage 4 chronic kidney disease, or unspecified chronic kidney disease; N18.31 Chronic kidney disease, stage 3a; I48.0 Paroxysmal atrial fibrillation; E78.2 Mixed hyperlipidemia; Z95.0 Presence of cardiac pacemaker
CPT/HCPCS: 36415; 80053; 83735

== ENCOUNTER → 2022-12-09 | Outpatient (CLI) | payer MEDICARE, BC ==
[2022-12-09 16:31] LABS: Anion Gap 13.7 mmol/L (10.00-18.00); BUN/Creat Ratio 15.75 Ratio (12.00-20.00); Blood Urea Nitrogen 17.8 mg/dL (9.0-27.0); Calcium 9.8 mg/dL (8.7-10.3); Carbon Dioxide 21.4 mmol/L (20.0-27.5); Non-African American GFR(CKD) 49.2 (60.0-200.0)
== END | disposition home or self-care (01) ==
LOC: LABWHC1 11:51
PROVIDERS: ATTEND Family Medicine
DX: N18.31 Chronic kidney disease, stage 3a (principal)
CPT/HCPCS: 36415; 80048

== ENCOUNTER → 2023-01-16 | Outpatient (CLI) | payer MEDICARE, BC ==
[2023-01-18 09:24] LABS: Anion Gap 11.1 mmol/L; BUN/Creat Ratio 16.4 Ratio; Blood Urea Nitrogen 16.4 mg/dL; Calcium 9.6 mg/dL; Carbon Dioxide 23.9 mmol/L; Potassium 4.6 mmol/L
[2023-01-19 09:51] LABS: African American GFR (CKD) 66.4; Non-African American GFR(CKD) 57.6
== END | disposition home or self-care (01) ==
LOC: LABWHC1 13:39
PROVIDERS: ATTEND Internal Medicine Interventional Cardiology
DX: N18.9 Chronic kidney disease, unspecified (principal)
CPT/HCPCS: 36415; 80048

== ENCOUNTER → 2023-04-01 | Outpatient (CLI) | payer MEDICARE, BC ==
[2023-04-01 14:59] LABS: Basophils # (A) 0.04 X 10*3/uL (0.00-0.10); Eosinophils # (A) 0.04 X 10*3/uL (0.04-0.35); HCT 36.4 % (37.2-46.3); HGB 11.8 d/dL (12.0-15.0); MCH 30.1 pg (27.0-32.0); MCHC 32.4 d/dL (32.0-37.0); MCV 92.9 FL (80.0-97.0); Mean Platelet Volume 10.7 FL (9.5-12.2); Monocytes # (A) 0.29 X 10*3/uL (0.20-1.00); Monocytes % (A) 6.9 %; NRBC Per 100 WBC 0 X 10*3/uL (0.00-0.01); Neutrophils # (A) 2.51 X 10*3/uL (1.80-7.70); Neutrophils % (A) 59.6 %; Platelet Count 249 X 10*3/uL (140-440); RBC 3.92 X 10*6/uL (4.10-5.20); RDW 21.8 % (11.5-14.5)
[2023-04-01 15:22] LABS: Appearance,Urine Clear (Clear); Bilirubin,Urine Negative (Negative); Blood,Urine Negative (Negative); Color,Urine Yellow (Yellow); Ketones,Urine Negative (Negative); Nitrite,Urine Negative (Negative); PH, Urine 5.5; Specific Gravity,Urine 1.021 (1.001-1.030); Urobilinogen,Urine 0.2 E.U./DL
[2023-04-01 15:25] LABS: Bacteria,Urine None Seen (None Seen)
[2023-04-01 16:28] LABS: Magnesium 2.2 mg/dL (1.5-2.4)
[2023-04-01 16:29] LABS: % Iron Saturation 36.54 (12.00-45.00); Albumin 4.3 d/dL (3.8-4.9); Blood Urea Nitrogen 13.1 mg/dL (9.0-27.0); Calcium 9.3 mg/dL (8.7-10.3); Carbon Dioxide 22.4 mmol/L (21.6-31.8); Chloride 108 mmol/L (96-109); Glucose 91 mg/dL (70-110); Iron 110 UG/DL (50-170); Potassium 4.3 mmol/L (3.5-5.5); Sodium 141 mmol/L (135-145); Total Iron Binding Capacity 301 UG/DL (228-460); Uric Acid 6.4 mg/dL (2.9-7.7)
== END | disposition home or self-care (01) ==
LOC: LABWHC1 09:57
PROVIDERS: ATTEND Nurse Practitioner Family
DX: E55.9 Vitamin D deficiency, unspecified (principal); N25.81 Secondary hyperparathyroidism of renal origin; M10.9 Gout, unspecified; N39.0 Urinary tract infection, site not specified; N18.31 Chronic kidney disease, stage 3a; D63.1 Anemia in chronic kidney disease
CPT/HCPCS: 36415; 80048; 81001; 82040; 82043; 82306; 82570; 82728; 83540; 83550; 83735; 83970; 84100; 84550; 85025

== ENCOUNTER → 2023-06-12 | Outpatient (CLI) | payer MEDICARE, BC ==
--- NOTE | 2023-06-12 10:20 | MM ---
Reason for Exam: Screening (asymptomatic). Last mammogram was performed 1 year(s) and 1 month(s) ago. Patient History: Menarche at age 13. First Full-Term at age 18. Left ovary removed at age 38. Postmenopausal. Breast cancer, right, age 69. Breast cancer, left, age 53. Estrogen for 10 years from age 38 until age 48. Tamoxifen for 5 years from age 54 until age 59. 2003, Malignant Mastectomy on the left side. Core Biopsy on the Left side. Mastectomy on the Left side. Excisional Biopsy on the Left side. Excisional Biopsy on the Left side. 08/11/2019, Malignant Core Biopsy on the right side. 08/11/2019, Malignant Core Biopsy on the right side. 04/29/2017, High risk Core Biopsy on the right side. 01/28/2001, Benign Excisional Biopsy on the right side. 02/09/2004, Malignant Stereotactic Core Biopsy on the left side. 2003, Chemotherapy. TRAM Reconstruction, left. Chemotherapy. 01/08/2001, Cancelled Procedure on the right side. Niece had breast cancer, age 30. Sister had breast cancer, age 50. Mother had breast cancer, age 60. Prior Study Comparison: 03/26/2020 Right Diagnostic Mammogram, [facility]. 03/27/2021 Right Diagnostic Mammogram, [facility]. 05/06/2022 Right MG 3D diag mammo w/cad RT, [facility]. Tissue Density: Right: There are scattered fibroglandular densities. Findings: There is no suspicious group of microcalcifications or new suspicious mass. Benign calcifications identified. Postexcisional changes on the right breast. Overall Assessment: Benign, BI-RAD 2 Management: Screening Mammogram of the right breast in 1 year. A clinical breast exam by your physician is recommended on an annual basis and results should be correlated with mammographic findings. Note on Claudia scores and lifetime risk: 1. A Claudia score greater than 3% is considered moderate risk. If this is the case, consider specialist referral to assess eligibility for a risk reducing agent. If overall lifetime risk for the development of breast cancer is 20% or higher, the patient may qualify for future screening with alternating mammogram and breast MRI. Electronically signed and approved by: Duncan Navarro D.O.
== END | disposition home or self-care (01) ==
LOC: RADMAMWWP 09:57
PROVIDERS: ATTEND Family Medicine
DX: Z12.31 Encounter for screening mammogram for malignant neoplasm of breast (principal); Z78.0 Asymptomatic menopausal state; Z80.3 Family history of malignant neoplasm of breast; Z85.3 Personal history of malignant neoplasm of breast
CPT/HCPCS: 77067

== ENCOUNTER → 2023-10-05 | Outpatient (CLI) | payer MEDICARE, BC ==
[2023-10-05 15:08] LABS: Basophils # (A) 0.02 X 10*3/uL (0.00-0.10); Basophils % (A) 0.4 %; Eosinophils # (A) 0.05 X 10*3/uL (0.04-0.35); Eosinophils % (A) 0.9 %; HCT 37.9 % (37.2-46.3); HGB 12.6 g/dL (12.0-15.0); Lymphocytes # (A) 1.53 X 10*3/uL (0.90-5.00); Lymphocytes % (A) 28.9 %; MCH 30.7 pg (27.0-32.0); MCHC 33.2 g/dL (32.0-37.0); MCV 92.2 FL (80.0-97.0); Mean Platelet Volume 10.5 FL (9.5-12.2); Monocytes % (A) 7.5 %; NRBC Per 100 WBC 0 X 10*3/uL (0.00-0.01); Neutrophils # (A) 3.27 X 10*3/uL (1.80-7.70); Neutrophils % (A) 61.7 %; Platelet Count 239 X 10*3/uL (140-440); RBC 4.11 X 10*6/uL (4.10-5.20); RDW 21.4 % (11.5-14.5)
[2023-10-05 15:34] LABS: Appearance,Urine Clear (Clear); Bilirubin,Urine Negative (Negative); Blood,Urine Negative (Negative); Color,Urine Yellow (Yellow); Ketones,Urine Negative (Negative); Nitrite,Urine Negative (Negative); PH, Urine 5.5
[2023-10-05 15:41] LABS: Bacteria,Urine Trace (None Seen)
[2023-10-05 15:46] LABS: % Iron Saturation 34.85 (12.00-45.00); ALT 16 U/L (8-44); AST 13 U/L (13-35); Albumin 4.4 g/dL (3.8-4.9); Albumin/Globulin Ratio 1.69 Ratio (1.60-3.17); Alkaline Phosphatase 63 U/L (41-126); Calcium 9.2 mg/dL (8.7-10.3); Carbon Dioxide 24.8 mmol/L (21.6-31.8); Chloride 107 mmol/L (96-109); Globulin 2.6 g/dL (1.6-3.3); Glucose 98 mg/dL (70-110); Iron 115 UG/DL (50-170); LDL Cholesterol,Calculated 66.5 mg/dL (0.0-131.0); Potassium 4.2 mmol/L (3.5-5.5); Sodium 143 mmol/L (135-145); Total Bilirubin 0.7 mg/dL (0.3-1.2); Total Iron Binding Capacity 330 UG/DL (228-460); VLDL Calculation 16.84 mg/dL (5.00-40.00)
== END | disposition home or self-care (01) ==
LOC: LABWHC1 12:16
PROVIDERS: ATTEND Internal Medicine Nephrology
DX: Z00.00 Encounter for general adult medical examination without abnormal findings (principal); Z13.29 Encounter for screening for other suspected endocrine disorder; I12.9 Hypertensive chronic kidney disease with stage 1 through stage 4 chronic kidney disease, or unspecified chronic kidney disease; N18.31 Chronic kidney disease, stage 3a; D63.1 Anemia in chronic kidney disease; E78.2 Mixed hyperlipidemia; I48.0 Paroxysmal atrial fibrillation; G47.00 Insomnia, unspecified; N39.0 Urinary tract infection, site not specified; Z79.01 Long term (current) use of anticoagulants; R80.9 Proteinuria, unspecified
CPT/HCPCS: 36415; 80053; 80061; 81001; 82043; 82570; 82728; 83540; 83550; 84443; 85025

== ENCOUNTER → 2024-01-29 | Outpatient (CLI) | payer MEDICARE, BC ==
[2024-01-29 11:21] LABS: INR 1.5 (<1.2); Partial Thromboplastin Time 35.3 sec (22.0-30.0); Prothrombin Time 15.2 sec (10.0-12.5)
[2024-01-29 16:57] LABS: ALT 16 U/L (8-44); AST 18 U/L (13-35); Albumin 4.4 g/dL (3.8-4.9); Albumin/Globulin Ratio 1.83 Ratio (1.60-3.17); Alkaline Phosphatase 60 U/L (41-126); BUN/Creat Ratio 16.22 Ratio (12.00-20.00); Blood Urea Nitrogen 14.6 mg/dL (9.0-27.0); Calcium 9.4 mg/dL (8.7-10.3); Chloride 104 mmol/L (96-109); Globulin 2.4 g/dL (1.6-3.3); Glucose 87 mg/dL (70-110); Potassium 4.2 mmol/L (3.5-5.5); Sodium 139 mmol/L (135-145); Total Protein 6.8 g/dL (6.2-8.2)
[2024-01-29 17:06] LABS: HCT 37.8 % (37.2-46.3); MCH 29.9 pg (27.0-32.0); MCHC 31.7 g/dL (32.0-37.0); Mean Platelet Volume 10.5 FL (9.5-12.2); NRBC Per 100 WBC 0 X 10*3/uL (0.00-0.01); Platelet Count 233 X 10*3/uL (140-440); RBC 4.02 X 10*6/uL (4.10-5.20); RDW 22.3 % (11.5-14.5)
== END | disposition home or self-care (01) ==
LOC: LABPAT 10:02
PROVIDERS: ATTEND Orthopaedic Surgery
DX: Z01.818 Encounter for other preprocedural examination (principal); Z22.322 Carrier or suspected carrier of Methicillin resistant Staphylococcus aureus
CPT/HCPCS: 36415; 80053; 85027; 85610; 85730; 87070; 93005

== ENCOUNTER → 2024-03-01 | Day surgery (SDC) | payer MEDICARE, BC ==
[~2024-03-01] MED LIST changes: -ACETAMINOPHEN TAB 500 MG TAB PO PRN; +ALPRAZolam 0.25 MG TAB PO PRN; +ALPRAZolam 0.5 MG TAB PO PRN; +ASPIRIN 325 MG TAB PO ONE; -GABAPENTIN 300 MG CAP PO PRN; +HEPARIN SODIUM 1,000 UN/ML (10ML VL) ONE; +HEPARIN SODIUM,PORCINE (1 ML) 2,500 UNIT in SODIUM CHLORIDE 0.9% 250 ML IRRIGATION PRN; +HEPARIN SODIUM,PORCINE 10,000 UNIT in SODIUM CHLORIDE 0.9% 1,000 ML IRRIGATION PRN; -LACTATED RINGERS 1,000 ML IV SCH; +LIDOCAINE 1% INJ 10MG/ML (20 ML MDV) ONE; -MELOXICAM 7.5 MG TAB PO PRN; +NITROGLYCERIN SL TABS 0.4 MG TAB SUBLINGUAL ONE; +NITROGLYCERIN SL TABS 0.4 MG TAB SUBLINGUAL PRN; -ONDANSETRON 4 MG/2 ML VIAL IVP ONE; +RX INFO: IV CONTRAST WAS GIVEN 1 EACH MISC MISCELLANE PRN; +SODIUM CHLORIDE 0.9% 1,000 ML IV SCH; -TRANEXAMIC ACID 1,000 MG in SODIUM CHLORIDE 0.9% 100 ML IVPB PRN; +VERAPAMIL 2.5 MG/ML 2 ML AMP ONE; +fentaNYL (PF) 50 MCG/ML 2 ML AMP ONE
[2024-03-01] MEDS: IV FLUID CONTINUATION 1,000 ML IV ONE (07:30)
[2024-03-01] MEDS: SODIUM CHLORIDE 0.9% 1,000 ML in EMPTY BAG 1 BAG IV SCH (07:37)
[2024-03-01 07:46] VITALS: TEMP 97.6
[2024-03-01 07:51] LABS: Anisocytosis Moderate; Basophils % (A) 0 %; Eosinophils # (A) 0.1 k/uL (0-0.7); Eosinophils % (A) 1 %; HCT 38.6 % (34.0-46.0); HGB 13.1 gm/dL (11.4-16.0); Lymphocytes # (A) 1.8 k/uL (1.0-4.8); Lymphocytes % (A) 26 %; MCHC 33.9 g/dL (31.0-37.0); MCV 91.4 fL (80.0-100.0); Mean Platelet Volume 8.7; Microcytosis Slight; Monocytes # (A) 0.4 k/uL (0-1.0); Monocytes % (A) 6 %; Neutrophils # (A) 4.3 k/uL (1.3-7.7); Neutrophils % (A) 63 %; Platelet Count 257 k/uL (150-450); RBC 4.22 m/uL (3.80-5.40); RDW 21.5 % (11.5-15.5); WBC 6.8 k/uL (3.8-10.6)
[2024-03-01 08:14] LABS: African American GFR (CKD) 78 (>60 ml/min/1.73 sqM); Anion Gap 9 mmol/L; Blood Urea Nitrogen 16 mg/dL (7-17); Calcium 9.2 mg/dL (8.4-10.2); Carbon Dioxide 20 mmol/L (22-30); Chloride 109 mmol/L (98-107); Glucose 98 mg/dL (74-99); Non-African American GFR(CKD) 67 (>60 ml/min/1.73 sqM); Sodium 138 mmol/L (137-145)
[2024-03-01] MEDS: CHLOROPROCAINE 3% 30 MG/ML 20 ML VIAL SQ ONE (08:25)
[2024-03-01] MEDS: MIDAZOLAM 2 MG/2 ML VIAL IVP ONE (08:25)
[2024-03-01] MEDS: fentaNYL (PF) 50 MCG/1 ML VIAL IVP ONE (08:25)
[2024-03-01] MEDS: HEPARIN SODIUM 1,000 UN/ML (10ML VL) IVP ONE ×2 (08:28→08:35)
[2024-03-01] MEDS: fentaNYL (PF) 50 MCG/ML 2 ML AMP IVP ONE (08:28)
[2024-03-01] MEDS: IOPAMIDOL-370 100ML BTL INJ ONE (08:43)
--- NOTE | 2024-03-01 08:46 | P.PCN ---
Date of Procedure: 03/01/24 Operative Findings: CARDIAC CATHETERIZATION PERFORMING PHYSICIAN: Angelo Silveira MD, RPVI PROCEDURE PERFORMED: 1. Selective right and left coronary angiogram 2. Left heart catheterization 3. Ultrasound-guided access of the right radial artery INDICATION: Abnormal stress test in this 73-year-old female patient who was going to undergo noncardiac surgery COMPLICATION: None APPROACH: Right radial artery LEVEL OF SEDATION: Moderate with a sedation length of 17 minutes PROCEDURE DESCRIPTION: After obtaining an informed consent, the patient was brought to cardiac soap slabber. Local anesthesia was performed using lidocaine subcutaneously. The right radial artery was cannulated using Seldinger technique, the guidewire passed easily, following that we advanced a 5-Jamaican sheath dilator assembly, the wire and dilator were removed and sheath was flushed. Following that, 2 mg of verapamil along with 5000 unit heparin were given. Selective right and left coronary angiogram using a 4-Jamaican JR4 and JL 3.5 catheters. Following that we did left heart catheterization using 4-Jamaican pigtail ca theter. The procedure was completed there was no complication. SELECTIVE CORONARY ANGIOGRAM: The right coronary artery: Large-caliber vessel and a dominant vessel appears to be angiographically normal Left main: Is angiographically normal The left circumflex: Large caliber vessel nondominant vessel and appears to be angiographically normal as well. Gives rise into the first and second obtuse marginal branches both appear to be angiographically normal The left anterior descending artery: Large caliber vessel. Is angiographically normal with gives rise into a diagonal branch which seems to be having mild disease only HEMODYNAMICS: The LVEDP was 23 mmHg with no significant gradient across aortic valve CONCLUSION: 1. Mild nonobstructive CAD 2. Elevated left-sided filling pressure POSTPROCEDURE MANAGEMENT: Medical treatment
[2024-03-01 10:36] VITALS: RESP 16
[2024-03-01 10:38] VITALS: BP 117/58; PULSE 60
== END ==
LOC: CATHCVL 07:11
PROVIDERS: ATTEND Internal Medicine Interventional Cardiology
DX: I25.10 Atherosclerotic heart disease of native coronary artery without angina pectoris (principal)
CPT/HCPCS: 93458; 80048; 85025; C1769 ×2; C1894; J2250; J3010 ×2; J1644; Q9967; J2401

== ENCOUNTER → 2024-03-14 | Outpatient (CLI) | payer MEDICARE, BC ==
[2024-03-14 12:08] LABS: INR 1.3 (<1.2); Prothrombin Time 13.8 sec (10.0-12.5)
[2024-03-14 12:09] LABS: Partial Thromboplastin Time 33.2 sec (22.0-30.0)
[2024-03-14 17:22] LABS: HGB 12.4 g/dL (12.0-15.0); MCH 30.3 pg (27.0-32.0); MCHC 33.5 g/dL (32.0-37.0); MCV 90.5 FL (80.0-97.0); Mean Platelet Volume 11.2 FL (9.5-12.2); NRBC Per 100 WBC 0 X 10*3/uL (0.00-0.01); Platelet Count 242 X 10*3/uL (140-440); RBC 4.09 X 10*6/uL (4.10-5.20); RDW 21.7 % (11.5-14.5); WBC 5.08 X 10*3/uL (4.50-10.00)
[2024-03-14 17:29] LABS: ALT 16 U/L (8-44); AST 17 U/L (13-35); Albumin 4.5 g/dL (3.8-4.9); Albumin/Globulin Ratio 1.88 Ratio (1.60-3.17); Alkaline Phosphatase 61 U/L (41-126); Blood Urea Nitrogen 15.5 mg/dL (9.0-27.0); Calcium 9.3 mg/dL (8.7-10.3); Carbon Dioxide 24.4 mmol/L (21.6-31.8); Chloride 104 mmol/L (96-109); Globulin 2.4 g/dL (1.6-3.3); Glucose 97 mg/dL (70-110); Potassium 4.5 mmol/L (3.5-5.5); Sodium 139 mmol/L (135-145); Total Protein 6.9 g/dL (6.2-8.2)
== END | disposition home or self-care (01) ==
LOC: LABPAT 10:31
PROVIDERS: ATTEND Orthopaedic Surgery
DX: Z01.812 Encounter for preprocedural laboratory examination (principal); M17.11 Unilateral primary osteoarthritis, right knee; Z22.322 Carrier or suspected carrier of Methicillin resistant Staphylococcus aureus
CPT/HCPCS: 80053; 85027; 85610; 85730; 87070

== ENCOUNTER 2024-03-22 10:00 | Inpatient (IN) | payer MEDICARE, BC ==
[2024-03-22] MEDS ORDERED: ONDANSETRON 4 MG/2 ML VIAL ONE (17:03)
[2024-03-22] MEDS ORDERED: METOPROLOL TARTRATE 25 MG TAB ONE (21:52)
[2024-03-22] MEDS ORDERED: HYDROmorphone 0.5 MG/0.5 ML SYRINGE ONE (21:58)
[2024-03-23] MEDS ORDERED: HYDROcodone/APAP 7.5-325MG 1 EACH TAB ONE ×2 (06:04→12:10)
[2024-03-23] MEDS ORDERED: METOPROLOL TARTRATE 50 MG TAB ONE (09:09)
== END 2024-03-23 12:39 | disposition home or self-care (01) | DRG 470 ==
LOC: OR 10:00 → DISRECOVER 10:33
PROVIDERS: ADMIT Orthopaedic Surgery; ATTEND Orthopaedic Surgery
PROC: 0SRC069 Replacement of Right Knee Joint with Oxidized Zirconium on Polyethylene Synthetic Substitute, Cemented, Open Approach (ICD-10-PCS; principal; 2024-03-22)
DX: M17.11 Unilateral primary osteoarthritis, right knee (principal); E78.5 Hyperlipidemia, unspecified; E66.9 Obesity, unspecified; I12.9 Hypertensive chronic kidney disease with stage 1 through stage 4 chronic kidney disease, or unspecified chronic kidney disease; N18.31 Chronic kidney disease, stage 3a; I48.0 Paroxysmal atrial fibrillation; G47.00 Insomnia, unspecified; I65.23 Occlusion and stenosis of bilateral carotid arteries; E78.2 Mixed hyperlipidemia; Z79.01 Long term (current) use of anticoagulants; Z79.899 Other long term (current) drug therapy; Z68.37 Body mass index [BMI] 37.0-37.9, adult; Z95.0 Presence of cardiac pacemaker; Z87.891 Personal history of nicotine dependence

== ENCOUNTER → 2024-06-06 | Outpatient (CLI) | payer MEDICARE, BC ==
[2024-06-06 15:58] LABS: % Iron Saturation 38.22 (12.00-45.00); ALT 9 U/L (8-44); AST 16 U/L (13-35); Albumin 4.3 g/dL (3.8-4.9); Albumin/Globulin Ratio 1.59 Ratio (1.60-3.17); Alkaline Phosphatase 76 U/L (41-126); BUN/Creat Ratio 20.12 Ratio (12.00-20.00); Blood Urea Nitrogen 16.1 mg/dL (9.0-27.0); Calcium 9.2 mg/dL (8.7-10.3); Carbon Dioxide 23.8 mmol/L (21.6-31.8); Chloride 104 mmol/L (96-109); Globulin 2.7 g/dL (1.6-3.3); Glucose 112 mg/dL (70-110); Iron 120 UG/DL (50-170); Phosphorus 2.8 mg/dL (2.4-5.1); Potassium 4.4 mmol/L (3.5-5.5); Sodium 141 mmol/L (135-145); Total Iron Binding Capacity 314 UG/DL (228-460)
[2024-06-06 15:59] LABS: Basophils # (A) 0.02 X 10*3/uL (0.00-0.10); Basophils % (A) 0.5 %; Eosinophils # (A) 0.05 X 10*3/uL (0.04-0.35); Eosinophils % (A) 1.1 %; HCT 36.2 % (37.2-46.3); HGB 11.7 g/dL (12.0-15.0); Lymphocytes # (A) 1.26 X 10*3/uL (0.90-5.00); Lymphocytes % (A) 28.6 %; MCH 30.9 pg (27.0-32.0); MCHC 32.3 g/dL (32.0-37.0); MCV 95.5 FL (80.0-97.0); Mean Platelet Volume 10.5 FL (9.5-12.2); Monocytes % (A) 6.8 %; NRBC Per 100 WBC 0 X 10*3/uL (0.00-0.01); Neutrophils # (A) 2.75 X 10*3/uL (1.80-7.70); Neutrophils % (A) 62.3 %; Platelet Count 250 X 10*3/uL (140-440); RBC 3.79 X 10*6/uL (4.10-5.20); RDW 21.9 % (11.5-14.5); WBC 4.41 X 10*3/uL (4.50-10.00)
== END | disposition home or self-care (01) ==
LOC: LABWHC1 11:30
PROVIDERS: ATTEND Nurse Practitioner Family
CPT/HCPCS: 36415; 80053; 82043; 82306; 82570; 83540; 83550; 83735; 83970; 84100; 85025

== ENCOUNTER → 2024-08-31 | Outpatient (CLI) | payer MEDICARE, BC ==
--- NOTE | 2024-08-31 11:34 | MM ---
Reason for Exam: Screening (asymptomatic). Last mammogram was performed 1 year(s) and 3 month(s) ago. Patient History: Menarche at age 13. First Full-Term at age 18. Left ovary removed at age 38. Postmenopausal. Breast cancer, right, age 69. Breast cancer, left, age 53. Estrogen for 10 years from age 38 until age 48. Tamoxifen for 5 years from age 54 until age 59. 2003, Malignant Mastectomy on the left side. Core Biopsy on the Left side. Mastectomy on the Left side. Excisional Biopsy on the Left side. Excisional Biopsy on the Left side. 08/11/2019, Malignant Core Biopsy on the right side. 08/11/2019, Malignant Core Biopsy on the right side. 04/29/2017, High risk Core Biopsy on the right side. 01/28/2001, Benign Excisional Biopsy on the right side. 02/09/2004, Malignant Stereotactic Core Biopsy on the left side. 2003, Chemotherapy. TRAM Reconstruction, left. Chemotherapy. 01/08/2001, Cancelled Procedure on the right side. Niece had breast cancer, age 30. Sister had breast cancer, age 50. Mother had breast cancer, age 60. Prior Study Comparison: 03/27/2021 Right Diagnostic Mammogram, [facility]. 05/06/2022 Right MG 3D diag mammo w/cad RT, [facility]. 06/12/2023 Right MG 3D scr brynn unilateral w/cad., [facility]. Tissue Density: Right: There are scattered areas of fibroglandular density. Findings: Benign-appearing tiny round and linear calcifications right breast are redemonstrated. Benign-appearing vascular calcification in the right breast is again seen. Persistent distortion towards the right axilla. Some skin thickening anteriorly is again seen. There is no suspicious group of microcalcifications or new suspicious mass in the right breast. Overall Assessment: Benign, BI-RAD 2 Management: Screening Mammogram of the right breast in 1 year. . Patient should continue monthly self-breast exams. A clinical breast exam by your physician is recommended on an annual basis. This exam should not preclude additional follow-up of suspicious palpable abnormalities. Note on Claudia scores and lifetime risk: 1. A Claudia score greater than 3% is considered moderate risk. If this is the case, consider specialist referral to assess eligibility for a risk reducing agent. 2. If overall lifetime risk for the development of breast cancer is 20% or higher, the patient may qualify for future screening with alternating mammogram and breast MRI. [facility], , 08/31/2024 11:31 AM. Electronically signed and approved by: Kiran Walls M.D.
== END | disposition home or self-care (01) ==
LOC: RADMAMWWP 10:03
PROVIDERS: ATTEND Family Medicine
DX: Z12.31 Encounter for screening mammogram for malignant neoplasm of breast (principal); Z78.0 Asymptomatic menopausal state; Z90.721 Acquired absence of ovaries, unilateral; Z85.3 Personal history of malignant neoplasm of breast; Z80.3 Family history of malignant neoplasm of breast; R92.321 Mammographic fibroglandular density, right breast
CPT/HCPCS: 77067